=== PATIENT | female | born 1955 | race Caucasian/White ===

== ENCOUNTER 2020-06-11 15:33 | Outpatient (CLI) | payer MEDICARE, SELFPAY ==
--- NOTE | ~2020-06-11 | XR_ITS ---
XR scoliosis survey 06/11/2020 16:11 Indication: Scoliosis. Skeletal dysplasia. Procedure: Scoliosis survey including AP and lateral views of the cervical, thoracic and lumbar spine Comparison: 02/06/2018 Findings: There is S-shaped scoliosis of the thoracolumbar spine transfixed by Thurston rods and ce rclage wires. No significant alteration of alignment generalized osteopenia. Healed left fifth rib fr acture posteriorly. There are surgical changes of the right upper ribs. Allowing for differences of t echnique since prior examination. Levoscoliosis of the lumbar spine centered at L2-3 measuring 78 [address] tenisha. Impression: 1: Severe thoracolumbar scoliosis without significant change allowing for differences of technique. H jr crystal positions unchanged. Reviewed, dictated and finalized at location A. Impression: 1: Severe thoracolumbar scoliosis without significant change allowing for diffe rences of technique. Thurston crystal positions unchanged.
--- NOTE | ~2020-06-11 | XR_ITS ---
EXAMINATION: XR elbow LT min 3V DATE: 06/11/2020 16:11 INDICATION: Left elbow pain. TECHNIQUE: 4 views of left elbow were obtained. COMPARISON: None. FINDINGS: Bone alignment is normal. No fracture. There is an erosion of the olecranon. Joint spaces a re well maintained. There is no elbow joint effusion. There is soft tissue swelling over the overlyin g the olecranon, consistent with bursitis. IMPRESSION: 1. Olecranon bursitis with erosion of the olecranon, consistent with osteomyelitis. Reviewed, dictated and finalized at location A. 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 Olecranon bursitis with erosion of the olecranon, consistent with osteomyeli tis.
== END 2020-06-11 15:34 | disposition home or self-care (01) ==
PROVIDERS: PCP Internal Medicine
DX: M79.89 Other specified soft tissue disorders (principal); M41.9 Scoliosis, unspecified; M70.22 Olecranon bursitis, left elbow
CPT/HCPCS: 72082; 73080

== ENCOUNTER 2021-03-04 14:11 | Emergency (ER) | payer MEDICARE, SELFPAY ==
[2021-03-04 14:30] VITALS: BP 146/71; PULSE 103; RESP 16; TEMP 36.5; O2SAT 100
--- NOTE | 2021-03-04 14:51 | ED.URI ---
HPI - URI/Sore Throat General Chief Complaint: Upper Respiratory Infection Stated Complaint: Cough,Congestion Time Seen by Provider: 03/04/21 14:50 Source: patient Mode of arrival: ambulatory Limitations: no limitations History of Present Illness HPI Narrative: Stephanie Rodríguez is a 65-year-old female with P MH of urinary retention and high cholesterol who comes to [facility] with complaints of cough and mild wheezing that started this morning she states that she has difficulty controlling her respiratory symptoms she is about 4 feet tall and is been seen at the [facility] and [facility] Related Data Home Medications Medication Instructions Recorded Confirmed cholecalciferol (vitamin D3) 125 125 mcg PO DAILY 07/21/20 mcg (5,000 unit) capsule cranberry extract 250 mg capsule 250 mg PO DAILY 07/21/20 03/04/21 krill 500 mg-omega-3 150 mg-dha 45 1 cap PO DAILY 07/21/20 03/04/21 mg-epa 75 ie-zideqvy-zvvzh capsule magnesium citrate 125 mg capsule 125 mg PO DAILY 07/21/20 03/04/21 rosuvastatin 5 mg tablet 5 mg PO DAILY 07/21/20 03/04/21 Allergies Allergy/AdvReac Type Severity Reaction Status Date / Time amitriptyline Allergy Intermediate BLOOD IN Verified 03/04/21 14:35 STOOL AND COUGHING UP BLOOD cephalexin Allergy Intermediate HIVES Verified 03/04/21 14:35 Sulfa (Sulfonamide Allergy Intermediate Wheezing Verified 03/04/21 14:35 Antibiotics) fructose Allergy Mild Other Verified 03/04/21 14:35 Review of Systems Review of Systems: CONSTITUTIONAL: Denies fever, chills, sweats. EYES: Denies visual changes, redness, discharge. Postnasal drip ENT: Denies rhinorrhea, congestion, sore throat, right otalgia. CARDIOVASCULAR: Denies chest pain, palpitations, edema. RESPIRATORY: Denies dyspnea, wheezing, has cough GASTROINTESTINAL: Denies abdominal pain, nausea, vomiting, diarrhea. GENITOURINARY: Denies dysuria, hematuria, abnormal discharge SKIN: Denies rash or itching. NEUROLOGIC: Denies numbness, or focal weakness. PSYCHIATRIC: Denies anxiety or depression. [facility] Past Medical History Medical History High cholesterol Family History Family History Father Cancer Hypertension Heart disease Mother Alcoholism Grandparent Cancer Hypertension Depression Heart disease Social History Social History Smoking status: Never smoker Alcohol intake: never Substance use: never Comments At time of signature, I agree with nursing past medical, surgical, social and family history. There is no relevant family history pertinent to the presenting complaint. Exam Narrative: GENERAL: This is a well-nourished, well-developed patient, in mild distress. HEAD: normocephalic, atraumatic. EYES: Sclera clear/white. Vision is grossly intact. EARS: External ears normal, auditory canals clear with fluid behind right TM, TMs normal without perforation. Hearing grossly intact. NOSE: External nose normal without nasal discharge, nares without redness, has rhinorrhea. THROAT: Mucous membranes moist, posterior pharynx erythema NECK: Neck supple, non-tender CARDIOVASCULAR: Regular rate and rhythm without murmurs, gallops, or rubs. RESPIRATORY: Clear to auscultation. Breath sounds equal bilaterally. No wheezes, rales, or rhonchi. GASTROINTESTINAL: Abdomen soft, non-tender, SKIN: warm, intact with no suspicious lesions or rash, good texture and turgor. NEURO: awake, alert, and oriented to person, place and time. There were no obvious focal neurologic abnormalities. Steady gait EXTREMITIES: Normal range of motion. BACK: Nontender without deformity Course Course Emergency Course: Patient here for symptoms of develops morning including a cough that caused her to vomit postnasal drip right ear dullness and difficulty breathing-she has h
== END 2021-03-04 15:19 | disposition home or self-care (01) ==
PROVIDERS: Emergency Provider Nurse Practitioner
DX: J06.9 Acute upper respiratory infection, unspecified (principal); J45.21 Mild intermittent asthma with (acute) exacerbation; E78.00 Pure hypercholesterolemia, unspecified
CPT/HCPCS: 99213; G0463

== ENCOUNTER → 2021-03-26 13:40 | Outpatient (CLI) | payer MEDICARE, SELFPAY ==
--- NOTE | ~2021-03-26 | MM_ITS ---
EXAMINATION: MM screening [facility] BI w shanthi HISTORY: Screening mammogram TECHNIQUE: Craniocaudal and mediolateral oblique 3-D tomosynthesis images were obtained and synthetic 2-D images were generated. CAD analysis was submitted and interpreted. COMPARISON: 02/06/2018, 03/25/2017, 03/27/2014 BREAST PARENCHYMAL COMPOSITION: The breasts are heterogeneously dense, which may obscure small masses . FINDINGS: There is no evidence of suspicious mass, calcification, or architectural distortion to sugg est malignancy in either breast. There has been no suspicious interval change. IMPRESSION: 1. No mammographic evidence of malignancy. 2. Recommend routine screening mammography in one year. BI-RADS Category 1: Negative Reviewed, dictated and finalized at location A. 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
== END ==
PROVIDERS: Visit Provider Obstetrics & Gynecology
DX: Z12.31 Encounter for screening mammogram for malignant neoplasm of breast (principal)
CPT/HCPCS: 77063; 77067

== ENCOUNTER → 2021-03-26 13:52 | Outpatient (CLI) | payer MEDICARE, SELFPAY ==
--- NOTE | ~2021-03-26 | CT_ITS ---
EXAMINATION: CT abdomen pelvis w con DATE: 03/26/2021 15:17 INDICATION: Left abdominal pain. TECHNIQUE: Computed tomography (CT) of the abdomen and pelvis was performed with 100 mL Omnipaque 350 intravenous contrast. Automated exposure control and iterative reconstruction technique were employe d. The dose-length product was 139.04 mGy-cm. COMPARISON: CT abdomen and pelvis 05/13/2015 FINDINGS: The visualized portions of the lung bases demonstrate mild atelectasis and scarring. There is mild bronchiectasis in right middle lobe. No pleural effusion. The heart size is normal. There are coronary artery calcifications. No pericardial effusion. There is a small sliding hiatal hernia. The re is wall thickening of the distal esophagus. The liver, gallbladder, spleen, pancreas, adrenal glan ds, and kidneys are normal. Stool distends the rectum. The appendix is not visualized. There are no p athologically enlarged lymph nodes. There is no free intraperitoneal fluid. The bladder demonstrates trabeculations of the wall and wall thickening, likely neurogenic bladder. There is a mesh from left- sided hernia repair. There is thoracolumbar levoscoliosis. There are changes of posterior fusion proc edure. IMPRESSION: 1. Small sliding hiatal hernia. 2. Wall thickening of the distal esophagus, likely esophagitis. 3. Stool distends the rectum, similar to the prior exam. 4. Diffuse bladder wall thickening, likely neurogenic bladder. Reviewed, dictated and finalized at location A. PERSON
[2021-03-26 14:54] LABS: Estimated Glomerular Filt Rate > 60
== END ==
PROVIDERS: Visit Provider Internal Medicine Gastroenterology
DX: R10.9 Unspecified abdominal pain (principal); K44.9 Diaphragmatic hernia without obstruction or gangrene
CPT/HCPCS: 74177; Q9967

== ENCOUNTER 2021-07-08 13:47 | Outpatient (CLI) | payer MEDICARE, SELFPAY ==
--- NOTE | ~2021-07-08 | XR_ITS ---
EXAMINATION: XR scanogram DATE: 07/08/2021 14:12 INDICATION: Bilateral hip and knee and ankle pain. TECHNIQUE: An anteroposterior view of the pelvis and lower limbs standing was obtained. COMPARISON: Spine radiographs 06/11/2020 FINDINGS: The right femoral head stands 7 mm higher than the left. There is an old healed fracture of distal left fibular metadiaphysis. There is levoscoliosis of lumbar spine with posterior fixation. S urgical clips overlie left abdomen. There is mild osteoarthritis of the hips characterized by tiny os teophytes without joint space narrowing. The knee joint spaces are normal. IMPRESSION: 1. Right femoral head stands 7 mm higher than the left. 2. Mild osteoarthritis of the hips. Reviewed, dictated and finalized at location A. [employer]
== END 2021-07-08 13:48 | disposition home or self-care (01) ==
DX: M16.0 Bilateral primary osteoarthritis of hip (principal)
CPT/HCPCS: 77073

== ENCOUNTER → 2021-12-29 13:34 | Outpatient (CLI) | payer MEDICARE, SELFPAY ==
--- NOTE | ~2021-12-29 | DEXA_ITS ---
Bone Density Report Name: IVAN ESCOBAR Age: 66 Sex: Female Ethnicity: White Date of : 1955 Indication: postmenopausal; screening for osteoporosis; height loss; asthma or emphysema; hysterectomy; Referring Provider: La, Donal Cornejo Study: Bone densitometry was performed. Exam Date: December 29, 2021 Accession number: [id number] Bone Density: Region BMD T-score Z-score Classification Femoral Neck (Left) 0.239 -5.5 -3.9 Osteoporosis Total Hip (Left) 0.371 -4.7 -3.3 Osteoporosis Femoral Neck (Right) 0.226 -5.6 -4.0 Osteoporosis Total Hip (Right) 0.386 -4.6 -3.2 Osteoporosis Total Hip Mean 0.379 -4.7 -3.3 Osteoporosis World Health Organization criteria for BMD impression classify patients as: Normal (T-score at or above -1.0), Osteopenia (T-score between -1.0 and -2.5), or Osteoporosis (T-score at or below -2.5). 10-year Fracture Risk: FRAX not reported because: Some T-score for Spine Total or Hip Total or Femoral Neck at or below -2.5 Clinical Information Provided by Patient: Has used the following medications: Vitamin D, Calcium, MTV Has the following medical conditions: Asthma or Emphysema, Hysterectomy Patient maximum height was 50 Menopause Age: 15 No regular weight bearing exercise Does not regularly consume dairy products Drinks caffeinated beverages Onset of menses at age 15 Number of children 0 Missed period for more than 6 months in a row Impression: The patient has osteoporosis, based on the Right Femoral Neck T-score. Discussion: HIGH RISK OF FRACTURE. BONE DENSITY IS UNDESIRABLY LOW AT ONE OR MORE SKELETAL SITES, CONSISTENT WITH OSTEOPOROSIS. ALSO, BONE DENSITY IS LOWER THAN EXPECTED FOR AGE AND SEX AT ONE OR MORE SKELETAL SITES; RECOMMEND A DILIGENT SEARCH FOR SECONDARY CAUSES OF BONE LOSS. This patient's lowest T-score meets the World Health Organization's (WHO) criteria for osteoporosis at one or more sites (T-score -2.5 or below). In untreated patients, the risk of osteoporotic fracture increases approximately two-fold for each 1.0 SD decrease in T-score. Low bone density is not the only risk factor for fracture; also consider factors such as patient's age, frailty or poor health, risk of falling, risk of injury, previous osteoporotic fracture, family history of osteoporosis, cigarette smoking, low body weight, etc. Not everyone with low bone mineral density has osteoporosis; osteomalacia and other metabolic bone disorders should also be considered. Patients who have osteoporosis should be evaluated for specific diseases and conditions (secondary causes) that may cause or contribute to bone loss. The [place] Association of Clinical Endocrinologists (AACE) and National Osteoporosis Foundation (NOF) recommend pharmacologic intervention for all postmenopausal women whose T-score is in this range.
== END ==
PROVIDERS: PCP Obstetrics & Gynecology; Visit Provider Internal Medicine
DX: M81.0 Age-related osteoporosis without current pathological fracture (principal)
CPT/HCPCS: 77080

== ENCOUNTER 2022-01-09 15:20 | Emergency (ER) | payer OTHER, MEDICARE, SELFPAY ==
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
[2022-01-09 15:33] VITALS: BP 143/79; PULSE 95; RESP 18; TEMP 36.6; O2SAT 100
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
[2022-01-09 17:04] VITALS: BP 142/63; PULSE 78; RESP 18; O2SAT 99
[2022-01-09] MEDS: ACETAMINOPHEN 500 MG TABLET PO (18:13)
[2022-01-09 19:32] VITALS: BP 140/60; PULSE 70; RESP 16; O2SAT 98
== END 2022-01-09 19:35 | disposition home or self-care (01) ==
PROVIDERS: Emergency Provider Emergency Medicine; PCP Obstetrics & Gynecology
DX: M54.50 Low back pain, unspecified (principal); M54.6 Pain in thoracic spine; V43.62XA Car passenger injured in collision with other type car in traffic accident, initial encounter
CPT/HCPCS: 71101; 72125; 72128; 72131; 72170; 99284; A9270

== ENCOUNTER 2022-03-09 14:15 | Outpatient (RCR) | payer OTHER, SELFPAY ==
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
--- NOTE | 2022-07-08 11:56 | PCPTNOTE ---
LATE ENTRY: PHYSICAL THERAPY DISCHARGE 07-08-22 Attending Provider: Genaro Knight MD Patient:Stephanie Rodríguez Date of :1955 Stephanie has not returned for any further treatments since the initial evaluation on 03/09/2022, therefore she will be discharged at this time. Thank you for referring Stephanie to [facility].
== END 2022-06-07 23:59 | disposition home or self-care (01) ==
LOC: ANHPT 14:15
PROVIDERS: PCP Obstetrics & Gynecology
DX: Q78.9 Osteochondrodysplasia, unspecified (principal); M19.90 Unspecified osteoarthritis, unspecified site
CPT/HCPCS: 97110; 97162

== ENCOUNTER 2022-07-27 13:30 | Outpatient (RCR) | payer OTHER, MEDICARE, SELFPAY ==
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
== END 2022-07-27 15:31 | disposition home or self-care (01) ==
LOC: ANHPT 13:30
PROVIDERS: PCP Internal Medicine
DX: Q78.9 Osteochondrodysplasia, unspecified (principal); M19.90 Unspecified osteoarthritis, unspecified site
CPT/HCPCS: 97110; 97116; 97161; 97530

== ENCOUNTER → 2022-08-10 13:49 | Outpatient (CLI) | payer MEDICARE, SELFPAY ==
--- NOTE | ~2022-08-10 | MM_ITS ---
EXAMINATION: MM screening laquita BI w shanthi HISTORY: Screening mammogram TECHNIQUE: Craniocaudal and mediolateral oblique 3-D tomosynthesis images were obtained and synthetic 2-D images were generated. CAD analysis was submitted and interpreted. COMPARISON: 03/26/2021, 02/06/2018, 03/14/2017 lateral screening mammogram examinations BREAST PARENCHYMAL COMPOSITION: The breasts are heterogeneously dense, which may obscure small masses . FINDINGS: There is no evidence of suspicious mass, calcification, or architectural distortion to sugg est malignancy in either breast. There has been no suspicious interval change. IMPRESSION: 1. No mammographic evidence of malignancy. 2. Recommend routine screening mammography in one year. BI-RADS Category 1: Negative Reviewed, dictated and finalized at location A.
== END ==
PROVIDERS: PCP Internal Medicine; Visit Provider Obstetrics & Gynecology
DX: Z12.31 Encounter for screening mammogram for malignant neoplasm of breast (principal)
CPT/HCPCS: 77063; 77067

== ENCOUNTER 2022-09-24 14:57 | Emergency (ER) | payer MEDICARE, SELFPAY ==
--- NOTE | ~2022-09-24 | XR_ITS ---
XR thoracic spine 3V 09/24/2022 15:57 Indication: Status post fall. Back pain. Procedure: 5 views thoracolumbar spine Comparison: 06/11/2020 Findings: Severe S-shaped scoliosis. Thurston rods are identified overlying the thoracic and lumbar spine. There is spondylolisthesis at L5-S1. Osteopenia. There is moderate multilevel spondylosis. No acute fractures identified. There are multiple healed bilateral rib fractures. Impression: 1: There no acute abnormality of the thoracolumbar spine. Severe S-shaped scoliosis transfixed by Osman rington rods and cerclage wires. Reviewed, dictated and finalized at location B. Impression: 1: There no acute abnormality of the thoracolumbar spine. Severe S-shaped scoli osis transfixed by Thurston rods and cerclage wires.
[2022-09-24 15:03] VITALS: BP 128/53; PULSE 110; RESP 18; TEMP 37; O2SAT 100
[2022-09-24 15:10] VITALS: BP 128/53; PULSE 110; RESP 18; TEMP 37; O2SAT 100
--- NOTE | 2022-09-24 15:30 | ED.FALL ---
HPI - Fall General Chief Complaint: Fall Stated Complaint: Fall Injury/ Upper Back Pain Time Seen by Provider: 09/24/22 15:30 Source: patient, RN notes reviewed and old records reviewed Mode of arrival: wheelchair Limitations: no limitations History of Present Illness HPI Narrative: 66 year old female who presents to express care and fall when grabber towel which has suction cups came off and she fell hitting upper back on the toilet.Patient reports that she has pain between her shoulder blades mainly on left side. Patient does have history of severe scoliosis with previous fixation fo spine with Thurston rods and cerclage wires.Patient denies hitting her head or any LOC.Patient reports that she has taken some tylenol and has used Voltaren ointment.Patient denies any shortness of breath or any change in her respiratory status. MD complaint: fall Onset (ago): day(s) (3) Loss of consciousness: none Location of injury: back (thoracic) Severity scale (1-10): 4 Related Data Home Medications Medication Instructions Recorded Confirmed cholecalciferol (vitamin D3) 125 125 mcg PO DAILY 07/21/20 09/24/22 mcg (5,000 unit) capsule cranberry extract 250 mg capsule 250 mg PO DAILY 07/21/20 09/24/22 krill 500 mg-omega-3 150 mg-dha 45 1 cap PO DAILY 07/21/20 09/24/22 mg-epa 75 [id number] capsule (krill oil) magnesium citrate 125 mg capsule 125 mg PO DAILY 07/21/20 09/24/22 rosuvastatin 5 mg tablet 5 mg PO DAILY 07/21/20 09/24/22 fluticasone propionate 110 110 inh inhalation DIRECTED 09/24/22 09/24/22 mcg/actuation HFA aerosol inhaler (Flovent HFA) Allergies Allergy/AdvReac Type Severity Reaction Status Date / Time amitriptyline Allergy Intermediate BLOOD IN Verified 03/04/21 14:35 STOOL AND COUGHING UP BLOOD cephalexin Allergy Intermediate HIVES Verified 03/04/21 14:35 Sulfa (Sulfonamide Allergy Intermediate Wheezing Verified 03/04/21 14:35 Antibiotics) fructose Allergy Mild Other Verified 03/04/21 14:35 Review of Systems Review of Systems: CONSTITUTIONAL: Denies fever, chills, or sweats. CARDIOVASCULAR: Denies chest pain, palpitations, or edema. RESPIRATORY: Denies cough or dyspnea. GASTROINTESTINAL: Denies abdominal pain, nausea, vomiting, or diarrhea. GENITOURINARY: Denies dysuria or hematuria. SKIN: Denies rash or itching. MUSCULOSKELETAL: Reports back pain between shoulder blades. Joint pain or myalgia. NEUROLOGIC: Denies headache, numbness, or weakness. All systems reviewed & are unremarkable except as noted in HPI and below PMFSH Past Medical History Medical History (Updated 09/25/22 @ 11:18 by Shannon Shine NP) Asthma Dwarfism GERD (gastroesophageal reflux disease) High cholesterol Osteoporosis Post-menopausal Scoliosis deformity of spine transfixed with Thurston RODs and wires Surgical History Surgical History (Updated 09/25/22 @ 11:18 by Shannon Shine NP) History of spinal fusion Hx of appendectomy Family History Family History Father Cancer Hypertension Heart disease Mother Alcoholism Grandparent Cancer Hypertension Depression Heart disease Social History Social History Smoking status: Never smoker Alcohol intake: never Substance use: never Comments At time of signature, agree with nursing past medical, surgical, social and family history. There is no relevant family history pertinent to the presenting complaint Exam Narrative: GENERAL: Well-appearing, well-nourished, and in no acute distress. HEAD: Normocephalic, atraumatic. EYES: PERRLA and EOMI. NECK: Supple. No lymphadenopathy. CHEST: Clear to auscultation. No respiratory distress.SAO2 100% on room air HEART: Regular rate and rhythm. Distal pulses palpable and equal, cap refill <3 seconds ABDOMEN: Soft, nontender, nondistended, norm
== END 2022-09-24 16:53 | disposition home or self-care (01) ==
PROVIDERS: Emergency Provider Registered Nurse; PCP Internal Medicine
DX: M54.6 Pain in thoracic spine (principal); J45.909 Unspecified asthma, uncomplicated; K21.9 Gastro-esophageal reflux disease without esophagitis; E78.00 Pure hypercholesterolemia, unspecified; M81.0 Age-related osteoporosis without current pathological fracture; M41.9 Scoliosis, unspecified; E34.328 Other genetic causes of short stature
CPT/HCPCS: 72072; 99213; G0463

== ENCOUNTER 2023-04-30 14:13 | Emergency (ER) | payer MEDICARE, SELFPAY ==
--- NOTE | ~2023-04-30 | CT_ITS ---
EXAMINATION: CT cervical spine wo con DATE: 04/30/2023 20:02 INDICATION: Neck pain after fall TECHNIQUE: Computed tomography (CT) of the cervical spine was performed without intravenous contrast. The dose-length product was 79 mGy-cm. Automated exposure control and iterative reconstruction techn ique were employed. COMPARISON: CT dated 01/09/2022 FINDINGS: Normal cervical lordosis. There is disc narrowing at C3-4, C6-7 and C7-T1. There is degener ative retrolisthesis at C3-4. No fracture, subluxation or dislocation. Odontoid process is normal. Th ere is multilevel uncinate and facet hypertrophy. Mild dextrocurvature of the cervical spine. No evid ence for perched facet. Craniovertebral junction is normal. Odontoid process is normal. No paraspinal soft tissue abnormality. There is a 1 cm left thyroid hypodense mass, likely of no clinical signific ance. There is emphysema of the lung apices. IMPRESSION: 1. No acute abnormality of the cervical spine. Reviewed, dictated and finalized at location A. FITTER APPRENTICE
--- NOTE | ~2023-04-30 | CT_ITS ---
EXAMINATION: CT BRAIN W/O DATE: 04/30/2023 20:02 INDICATION: Status post fall. TECHNIQUE: Computed tomography (CT) of the head was performed without intravenous contrast. The dose- length product was 605.33 mGy-cm. Automated exposure control and iterative reconstruction technique w ere employed. COMPARISON: No prior studies for comparison. FINDINGS: Normal brain parenchymal volume for age. Normal shepherd-white differentiation. No acute intrac ranial hemorrhage, infarction, mass or mass effect. There are scattered mild periventricular and subc ortical white matter changes, most likely related to small vessel ischemic disease (microangiopathy). There is intracranial atherosclerosis. No ventriculomegaly or midline shift. Midline sagittal images demonstrate a normal corpus callosum, c raniovertebral junction and sella turcica. Basilar cisterns are patent. There is chronic mucosal thickening right maxillary sinus with mucoperiosteal reaction. No depressed skull fractures. IMPRESSION: 1. No acute intracranial abnormality. Reviewed, dictated and finalized at location A. PILER
--- NOTE | ~2023-04-30 | CT_ITS ---
EXAMINATION: CT thoracic lumbar wo con DATE: 04/30/2023 20:02 INDICATION: Back pain after fall. TECHNIQUE: Computed tomography (CT) of the thoracic and lumbar spine was performed without intravenou s contrast. The dose-length product was 605.33 mGy-cm. Automated exposure control and iterative recon struction technique were employed. COMPARISON: CT dated 01/09/2022 FINDINGS: Severe levoscoliosis of the thoracolumbar spine transfixed by Thurston rods. There is a n ew T5 superior endplate compression fracture, age indeterminate. There is approximately 20% loss of v ertebral body height. No acute abnormality of the lumbar spine identified. There is multilevel degenerative disc disease. There is right lower lobe dependent atelectasis. There is fecal impaction of the distal colon and rec wagner which appears mildly thickened. IMPRESSION: 1. New age-indeterminate T5 superior endplate compression fracture. Approximately 20% loss of vertebr al body height. Reviewed, dictated and finalized at location A. REPAIRER IMPRESSION: 1. New age-indeterminate T5 superior endplate compression fracture. Approximate ly 20% loss of vertebral body height.
[2023-04-30 14:16] VITALS: BP 153/69; PULSE 106; RESP 16; TEMP 36.3; O2SAT 100
--- NOTE | 2023-04-30 18:57 | PC.NURSE ---
pt self cath's at home. pt was provided bedadine swaps, gloves, and a bed zaragoza to cath bedside.
--- NOTE | 2023-04-30 19:07 | ED.FALL ---
HPI - Fall General Chief Complaint: Fall Stated Complaint: fall Time Seen by Provider: 04/30/23 19:06 Source: patient and family Mode of arrival: ambulatory Limitations: no limitations History of Present Illness HPI Narrative: Patient tripped on a curb landed backward, landed on her bottom then struck the back of her head on the ground, no loss of consciousness complaining of back pain and neck pain. No blood thinners Related Data Home Medications Medication Instructions Recorded Confirmed cholecalciferol (vitamin D3) 125 125 mcg PO DAILY 07/21/20 09/24/22 mcg (5,000 unit) capsule cranberry extract 250 mg capsule 250 mg PO DAILY 07/21/20 09/24/22 krill 500 mg-omega-3 150 mg-dha 45 1 cap PO DAILY 07/21/20 09/24/22 mg-epa 75 [id number] capsule (krill oil) magnesium citrate 125 mg capsule 125 mg PO DAILY 07/21/20 09/24/22 rosuvastatin 5 mg tablet 5 mg PO DAILY 07/21/20 09/24/22 fluticasone propionate 110 110 inh inhalation DIRECTED 09/24/22 09/24/22 mcg/actuation HFA aerosol inhaler (Flovent HFA) Allergies Allergy/AdvReac Type Severity Reaction Status Date / Time amitriptyline Allergy Intermediate BLOOD IN Verified 04/30/23 14:13 STOOL AND COUGHING UP BLOOD cephalexin Allergy Intermediate HIVES Verified 04/30/23 14:13 Sulfa (Sulfonamide Allergy Intermediate Wheezing Verified 04/30/23 14:13 Antibiotics) fructose Allergy Mild Other Verified 04/30/23 14:13 Review of Systems Review of Systems: All systems reviewed & are unremarkable except as noted in HPI and below PMFSH Past Medical History Medical History Asthma Dwarfism GERD (gastroesophageal reflux disease) High cholesterol Osteoporosis Post-menopausal Scoliosis deformity of spine transfixed with Thurston RODs and wires Surgical History Surgical History History of spinal fusion Hx of appendectomy Family History Family History Father Cancer Hypertension Heart disease Mother Alcoholism Grandparent Cancer Hypertension Depression Heart disease Social History Social History Smoking status: Never smoker Alcohol intake: never Substance use: never Exam Narrative: General appearance: Well-developed, well-nourished Skin: Normal color Head: Occipital hematoma Eyes: Clear conjunctiva ENT: Oropharynx normal, ears normal, nose normal Neck: Supple, nontender Chest and respiratory: Airway patent, no respiratory distress, no accessory muscle use Heart: Regular rate/rhythm Abdomen: Soft, nontender, no organomegaly, quiet bowel sounds Vascular: Normal peripheral pulses, normal capillary refill. Musculoskeletal: No localized back pain, no bruises, or swelling or deformity. Neurologic: Alert and oriented ?3, [employer] is normal as tested, no gross motor deficit Course Vital Signs Vital signs: Vital Signs Temperature 36.3 C L 04/30/23 14:16 Pulse Rate 106 H 04/30/23 14:16 Respiratory Rate 16 04/30/23 14:16 Blood Pressure 153/69 H 04/30/23 14:16 Pulse Oximetry 100 04/30/23 14:16 Oxygen Delivery Room Air 04/30/23 14:16 Temperature 36.3 C L 04/30/23 14:16 Pulse Rate 106 H 04/30/23 14:16 Respiratory Rate 16 04/30/23 14:16 Blood Pressure 153/69 H 04/30/23 14:16 Pulse Oximetry 100 04/30/23 14:16 Oxygen Delivery Room Air 04/30/23 14:16 MDM - Fall MDM Narrative Medical decision making narrative: Patient presents with the above symptoms, physical examination showed no
[2023-04-30 19:15] VITALS: BP 143/85; PULSE 81; RESP 19; O2SAT 99
[2023-04-30 21:38] VITALS: BP 139/82; PULSE 66; RESP 19; O2SAT 99
== END 2023-04-30 21:37 | disposition home or self-care (01) ==
PROVIDERS: Emergency Provider Emergency Medicine; PCP Internal Medicine
DX: S09.90XA Unspecified injury of head, initial encounter (principal); S22.059A Unspecified fracture of T5-T6 vertebra, initial encounter for closed fracture; J45.909 Unspecified asthma, uncomplicated; E34.328 Other genetic causes of short stature; K21.9 Gastro-esophageal reflux disease without esophagitis; W10.1XXA Fall (on)(from) sidewalk curb, initial encounter
CPT/HCPCS: 70450; 72125; 72128; 72131; 99284

== ENCOUNTER 2023-08-12 16:18 | Outpatient (CLI) | payer MEDICARE, SELFPAY ==
--- NOTE | ~2023-08-12 | XR_ITS ---
EXAM: XR wrist RT min 3V DATE: 08/12/2023 16:49 HISTORY: STIFFESS, OSTEOARTHRITIS . COMPARISON: None available. FINDINGS: Decreased mineralization. Abnormal morphology and orientation of the scaphoid, possible ol d scaphoid fracture. Scapholunate widening. Scapholunate angle 84 degrees, capitate-lunate angle 25 d egrees (DISI). Abnormal morphology of the lunate bone. Severe joint space narrowing in the proximal a nd second carpal row. Scalloped erosion at the DRUJ. Scattered subchondral cysts. Absent ulnar styloi d. Soft tissue swelling about the wrist. IMPRESSION: Severe arthritic change in the wrist with changes of instability such as SLAC or SNAC wrist. Additional radiographic findings suspicious for inflammatory arthritis. Correlate with serum markers for rheumatoid arthritis. Reviewed, dictated and finalized at location K. IMPRESSION: Severe arthritic change in the wrist with changes of instability such as SLAC o r SNAC wrist. Additional radiographic findings suspicious for inflammatory arthritis. Correla te with serum markers for rheumatoid arthritis.
== END 2023-08-12 16:19 | disposition home or self-care (01) ==
PROVIDERS: PCP Internal Medicine; Visit Provider Plastic Surgery
DX: M19.031 Primary osteoarthritis, right wrist (principal)
CPT/HCPCS: 73110

== ENCOUNTER 2023-08-24 14:20 | Outpatient (CLI) | payer MEDICARE, SELFPAY ==
--- NOTE | ~2023-08-24 | US_ITS ---
US breast BI complete 08/24/2023 15:08 Indication: Patient unable to tolerate mammograms. Bilateral complete breast ultrasound recommended. Procedure: High-resolution bilateral complete breast ultrasound including all 4 quadrants in the suba reolar locations Comparison: Mammogram dated 08/10/2022 Findings: Right breast: At 12:00 near the nipple there is an oval 2 mm hypoechoic mass, likely a cyst . No internal vascularity or posterior features. Left breast: At 11:00, 1 cm from the nipple there is an oval hypoechoic 2 mm mass, likely complicated cysts, too small to well characterize. No internal vascularity or posterior features. Impression: 1: Probable benign bilateral cysts of the breasts. BI-RADS CATEGORY 3-PROBABLY BENIGN FINDING RECOMMENDATION: 6 month follow-up limited bilateral breast ultrasound recommended. Reviewed, dictated and finalized at location B. Impression: 1: Probable benign bilateral cysts of the breasts. BI-RADS CATEGORY 3-PROBABLY BENIGN FINDING RECOMMENDATION: 6 month follow-up limited bilateral breast ultrasound recommend ed.
== END 2023-08-24 14:21 | disposition home or self-care (01) ==
PROVIDERS: PCP Internal Medicine; Visit Provider Internal Medicine
DX: R92.8 Other abnormal and inconclusive findings on diagnostic imaging of breast (principal)
CPT/HCPCS: 76641

== ENCOUNTER 2024-02-15 15:32 | Outpatient (CLI) | payer MEDICARE, SELFPAY ==
--- NOTE | ~2024-02-15 | DEXA_ITS ---
Bone Density Report Name: IVAN ESCOBAR Age: 68 Sex: Female Ethnicity: White Date of : 1955 Indication: postmenopausal; screening for osteoporosis; prior fracture; hysterectomy; Referring Provider: AILEEN, HORACIO Cornejo Study: Bone densitometry was performed. Exam Date: February 15, 2024 Accession number: [id number] Bone Density: Region BMD T-score Z-score Classification Femoral Neck (Left) 0.276 -5.2 -3.4 Osteoporosis Total Hip (Left) 0.460 -3.9 -2.5 Osteoporosis Femoral Neck (Right) 0.281 -5.1 -3.4 Osteoporosis Total Hip (Right) 0.449 -4.0 -2.6 Osteoporosis Total Hip Mean 0.455 -4.0 -2.6 Osteoporosis World Health Organization criteria for BMD impression classify patients as: Normal (T-score at or above -1.0), Osteopenia (T-score between -1.0 and -2.5), or Osteoporosis (T-score at or below -2.5). 10-year Fracture Risk: FRAX not reported because: Some T-score for Spine Total or Hip Total or Femoral Neck at or below -2.5 Prior hip or vertebral fracture Clinical Information Provided by Patient: Have had a previous hip or vertebral fracture Has had a low trauma fracture Has used the following medications: Vitamin D, Calcium Has the following medical conditions: Hysterectomy Patient maximum height was 54 Menopause Age: 39 Drinks caffeinated beverages Onset of menses at age 1 Number of children 0 Impression: The patient has established osteoporosis, based on the Left Femoral Neck T-score and the existence of a prior fracture. The patient has risk factors, including: previous fracture. Discussion: HIGH RISK OF FRACTURE. BONE DENSITY IS UNDESIRABLY LOW AT ONE OR MORE SKELETAL SITES, CONSISTENT WITH POSTMENOPAUSAL OSTEOPOROSIS. This patient's lowest T-score, in a patient who has previously fractured, meets the World Health Organization's (WHO) criteria for severe osteoporosis. In untreated patients, the risk of osteoporotic fracture increases approximately two-fold for each 1.0 SD decrease in T-score. Low bone density is not the only risk factor for fracture; also consider factors such as patient's age, frailty or poor health, risk of falling, risk of injury, previous osteoporotic fracture, family history of osteoporosis, cigarette smoking, low body weight, etc. Not everyone with low bone mineral density has osteoporosis; osteomalacia and other metabolic bone disorders should also be considered. Patients who have osteoporosis should be evaluated for specific diseases and conditions (secondary causes) that may cause or contribute to bone loss. The [place] [employer] Endocrinologists (AACE) and National Osteoporosis Foundation (NOF) recommend pharmacologic intervention for all postmenopausal women with a previous hip or vertebral fracture and a T-score in this range. The patient should follow a hea
== END 2024-02-15 15:33 | disposition home or self-care (01) ==
LOC: ANHIMG 15:33
PROVIDERS: PCP Internal Medicine; Visit Provider Internal Medicine
DX: M81.0 Age-related osteoporosis without current pathological fracture (principal); M85.89 Other specified disorders of bone density and structure, multiple sites; Z13.820 Encounter for screening for osteoporosis
CPT/HCPCS: 77080

== ENCOUNTER 2024-04-25 18:13 | Emergency (ER) | payer MEDICARE, SELFPAY ==
[2024-04-25 18:19] VITALS: BP 123/55; PULSE 108; RESP 22; TEMP 36.8; O2SAT 96
--- NOTE | 2024-04-25 18:22 | ED.SKABFB ---
HPI - Skin/Abscess/Foreign Bdy General Chief complaint: Extremity Injury, Lower Stated complaint: Left toe nail/foot swollen Time Seen by Provider: 04/25/24 18:26 Source: patient and RN notes reviewed Mode of arrival: ambulatory Limitations: dementia History of Present Illness HPI narrative: 68-year-old female presents with concern for injured toenail. She reports she was cutting her toenails when she noticed the fell off. This happened about 6 days ago. She denies pain, drainage. MD complaint: other (Redness) Related Data Home Medications ?Medication ?Instructions ?Recorded ?Confirmed ?Last Taken ?Type cholecalciferol (vitamin D3) 125 125 mcg PO DAILY 07/21/20 09/24/22 Unknown History mcg (5,000 unit) capsule cranberry extract 250 mg capsule 250 mg PO DAILY 07/21/20 09/24/22 Unknown History krill 500 mg-omega-3 150 mg-dha 45 1 cap PO DAILY 07/21/20 09/24/22 Unknown History mg-epa 75 ig-[id number]-bldfs capsule (krill oil) magnesium citrate 125 mg capsule 125 mg PO DAILY 07/21/20 09/24/22 Unknown History rosuvastatin 5 mg tablet 5 mg PO DAILY 07/21/20 09/24/22 Unknown History fluticasone propionate 110 110 inh inhalation DIRECTED 09/24/22 09/24/22 Unknown History mcg/actuation HFA aerosol inhaler (Flovent HFA) Allergies Allergy/AdvReac Type Severity Reaction Status Date / Time amitriptyline Allergy Intermediate BLOOD IN Verified 04/25/24 18:34 STOOL AND COUGHING UP BLOOD cephalexin Allergy Intermediate HIVES Verified 04/25/24 18:34 Sulfa (Sulfonamide Allergy Intermediate Wheezing Verified 04/25/24 18:34 Antibiotics) fructose Allergy Mild Other Verified 04/25/24 18:34 Review of Systems Review of Systems: CONSTITUTIONAL: Denies malaise, chills, sweats, or fever. EYES: Denies redness, or discharge. ENT: Denies rhinorrhea, congestion, swollen lips, swollen tongue CARDIOVASCULAR: Denies chest pain, palpitations, or edema. RESPIRATORY: Denies cough or dyspnea. GASTROINTESTINAL: Denies abdominal pain, nausea, vomiting SKIN: Reports toenail injury. Denies purulent drainage, vesicles, bullae, numbness, pain beyond proportion MUSCULOSKELETAL: Denies joint pain or myalgia. NEUROLOGIC: Denies headache. All systems reviewed & are unremarkable except as noted in HPI and below PMFSH Past Medical History Medical History Asthma Dwarfism GERD (gastroesophageal reflux disease) High cholesterol Osteoporosis Post-menopausal Scoliosis deformity of spine transfixed with [place] RODs and wires Surgical History Surgical History History of spinal fusion Hx of appendectomy Family History Family History Father Cancer Hypertension Heart disease Mother Alcoholism Grandparent Cancer Hypertension Depression Heart disease Social History Social History Smoking status: Never smoker Alcohol intake: never Substance use: never Comments At time of signature, agree with nursing past medical, surgical, social and family history. There is no relevant family history pertinent to the presenting complaint Exam Narrative: GENERAL: Well-appearing, well-nourished, and in no acute distress. HEAD: Normocephalic, atraumatic. EYES: PERRLA, conjunctivae clear ENT: Mucous membranes moist. NECK: Supple. No lymphadenopathy CHEST: Clear to auscultation. No respiratory distress. HEART: Regular rate and rhythm. SKIN: Warm, dry. Toenail of the 1st digit of the left foot removed, No Erythema, induration, tenderness, warmth with sharp margins noted. No vesicles, bullae, necrosis, ecchymosis, crepitus noted. NEURO: Alert and oriented x3. PSYCH: Normal mood and affect Course Course Emergency Course: Patient is aware of diagnosis, understands and agrees to treatment plan. Anticipatory guidance given. Patient agrees to follow-up as directed and is aware of reasons to seek care at the emergency department. Portions of this record may have been created with voice recognition software Level of Care: Express Care Visit Vital Signs Vital signs: Reviewed. MDM - Skin/Abscess/Foreign Bdy MDM Narrative Medical decision making narrative: I evaluated this in the express care. History is obtained from patient who is an independent historian and physical exam was performed.? Available medical records were reviewed. ? Exam findings and relevant testing show no acute concerns or changes; patient is non-toxic appearing and is in no distress. No risk factors or findings concerning for epidural abscess, diskitis, vertebral osteomyelitis, cord compression, cauda equina, vertebral fracture or bone malignancy, AAA, or pyelonephritis. Patient instructed to consider further imaging and workup through their primary care physician as an outpatient if symptoms persist. Does not appear at this time to be erythema multiforme, bullous, SJS, TEN; no evidence at this time to suggest RMSF, NSTI, endocarditis or Lyme disease; patient looks well, nontoxic and is tolerating oral intake; no neurologic signs or symptoms; no headache, photophobia or neck pain; afebrile.? Patient does not have history of of penetrating trauma, laceration, blunt trauma, recent surgery, immunosuppression, malignancy, obesity, alcoholism, corticosteroid use.? Discussed the importance of follow-up, patient agrees; question, cellulitis versus necrotizing soft tissue infection versus abscess.?? Patient is appropriate for outpatient treatment and follow-up. Critical Care Time Critical Care Time Critical Care Time: No Discharge Plan Discharge Clinical Impression: Injury of toenail Patient Disposition: Home, Self-Care Condition: Stable Instructions: Warm Compress or Soak (ED) Additional Instructions: Please follow up with your Primary Care Doctor you have any new symptoms or concerns. Rest and elevate affected area; apply moist heat 3-4 times daily for 10-15 minutes. You can cover the toenail with a bandage to protect it from irritation If you experience any worsening redness, swelling, streaking (red lines), fever or chills please go to the ER Patient Language: Macedonian Prescriptions: No Action albuterol sulfate 90 mcg/actuation HFA aerosol inhaler 1 inh inhalation QID PRN (Reason: shortness of breath or wheezing) Qty: 8.5 0RF fluticasone propionate [Flovent HFA] 110 mcg/actuation HFA aerosol inhaler 110 inh INHALATION DIRECTED rosuvastatin 5 mg tablet 5 mg PO DAILY krill oil [id number] mg capsule 1 cap PO DAILY cranberry extract 250 mg capsule 250 mg PO DAILY Rx Instructions: administer with a meal cholecalciferol (vitamin D3) 125 mcg (5,000 unit) capsule 125 mcg PO DAILY magnesium citrate 125 mg capsule 125 mg PO DAILY Follow-up/Referrals: La,Donal Cornejo MD [Primary Care Provider] - Time of Disposition: 18:43
== END 2024-04-25 18:48 | disposition home or self-care (01) ==
PROVIDERS: Emergency Provider Nurse Practitioner; PCP Internal Medicine
DX: S99.922A Unspecified injury of left foot, initial encounter (principal); X58.XXXA Exposure to other specified factors, initial encounter; J45.909 Unspecified asthma, uncomplicated; K21.9 Gastro-esophageal reflux disease without esophagitis; E78.00 Pure hypercholesterolemia, unspecified; M81.0 Age-related osteoporosis without current pathological fracture; E34.328 Other genetic causes of short stature
CPT/HCPCS: 99212; G0463

== ENCOUNTER 2024-08-18 14:37 | Emergency (ER) | payer MEDICARE, SELFPAY ==
--- OUTSIDE RECORDS SUMMARY | 2024-08-18 14:39 | XMS_ITS | Encounter Summary ---
Author Organization [facility] Healthcare Address [address] [place] [address] Care Team Providers Care Automation Machine Operator Name Role Phone Donal Tovar MD Primary Care Provider Reason for Visit * Auth/Cert Specialty Diagnoses / Procedures Referred By Contac t Referred To Contact Diagnoses Screening for colon cancer Screening for colon cancer [Z12.11] Procedures MT COLONOSCOPY FLX DX W/COLLJ SPEC WHEN PFRMD COLONOSCOPY Referral ID Status Reason Start Date Expiration Date Visits Re quested Visits Authorized [id number] 1 1 Encounter Details Date Type Department Care Team (Late st Contact Info) Description 07/03/2024 Hospital Encounter [facility] [address] [place] [address] Rosaura Gates MD [address] [place] [id number] Social History Tobacco Use Types Packs/Day Years Used Date Smoking Tobacco: Never Smokeless Tobacco: Never Alcohol Use Standard Drinks/Week Comments No 0 (1 standard drink = 0.6 oz pur e alcohol) OASIS D0700: Social Isolation Answer Da te Recorded Frequency of experiencing loneliness or isolatio n Never 09/07/2023 OASIS A1250: Transportation Answer Date Recorded Lack of Transportation (Medical) No 09/07/2023 Lack of Transportation (Non-Medical) No 09/07/2023 Patient Unable or Declines to Respond No 09/07/2023 OASIS B1300: Health Literacy Answer Parth e Recorded Frequency of needing help to read materials from doctor or pharmacy Rarely 09/07/2023 AUDIT-C Answer Date Recorded Q1: How often do you have a drink containing alcohol? Never 07/16/2024 Q2: How many drinks containi ng alcohol do you have on a typical day when you are drinking? Patient does not drink Q3: How often do you have si x or more drinks on one occasion? Never 07/16/2024 PHQ-2 Answer Date Recorded PHQ-2 Total Score (If total score is 3 or more points, staff should administer the PHQ-9) 0 03/23/2024 Personal Safety Answer Date Recorded Have you ever been in or are you currently in a harmful physical or emotional relationship or is someone making you feel afraid or unsafe? 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 Never 07/16/2024 11:21 AM Maritza Barone RN Q2: How many drinks containing alcohol do you have on a typical day when you are drinking? Patient does not drink 07/16/2024 11:21 AM Maritza Barone RN Q3: How often do you have six or more drinks on one occasion? Never 07/16/2024 11:21 AM Maritza Barone RN documented as of this encounter Plan of Treatment Upcoming Encounters Date Type Department Care Team (Late st Contact Info) Description 08/30/2025 2:00 PM CDT Office Visit [facility] Obstetrics and [facility]necology [address] [facility] 13th [address] [id number] Anny Butts MD [id number] [place] [address] documented as of this encounter Visit Diagnoses Diagnosis Screening for colon cancer- Primary Special screening for malignant neoplasms, colon documented in this encounter Admitting Diagnoses Diagnosis Screening for colon cancer Special screening for malignant neoplasms, colon documented in this encounter Care Teams Automation Machine Operator Relationship Specialty Start Date End Date Donal Tovar MD PCP - General 09/17/14 documented as of this encounter
--- OUTSIDE RECORDS SUMMARY | 2024-08-18 14:40 | XMS_ITS ---
Author Organization [facility] Address [address] [place] [address] Care Team Providers Care Sustainability Communicator Name Role Phone La, Donal Primary Care Provider UnavailYaniv Meza Unavailable [phone] Melinda Field Unavailable [phone] REASON FOR VISIT ARC follow-up; continues allergy avoidance, on meds, and continues SCIT at MM dosing, Historical asthma diagnosis - on Flovent BID with no interval JUAN use. ACT 20. Medications Medication SIG (Take, Route, Frequency, Duration) Notes Start Date End Date Status FLOVENT Not-Taking Flovent HFA *Please review and pick correct strength-formula tion from Souktel options. If intended option is not shown, discontinue and re-order from Quick Search* Not-Taking Ipratropium [place] 0.06 % 2 sprays in each nostril Nasally Four times a day for 30 days Active SIT (Traditional) variable - see record per schedule subcutaneous per schedule for 999 days Active IPRATROPIUM BROMIDE HYDROUS, 1 G *Please review for potential replacement for e-prescription and drug interaction check* Not-Taking Rosuvastatin Calcium 5 MG 1 tab(s) orally once a day for 30 day(s) Active Azelastine HCl 137 MCG/SPRAY 1 puff in each nostril Nasally Twice a day for 30 days 01/12/2024 Active EPIPEN 2-PARMINDER 0.3 mg as directed intramuscularly once for 30 days Active NASAL WASHES N/A as directed intranasally as needed for 30 Active SIT (CLUSTER) VARIABLE PER SCHEDULE SC PER SCHEDULE for TO BE DETERMINED *Please review for potential replacement for e-prescription and drug interaction check* 04/20/2022 Active CETIRIZINE 10 mg 1 tab(s) orally once a day for 30 days Active FLUTICASONE NASAL 50 mcg/inh 2 spray(s) in each nostril BID for 30 day(s) Active OMEPRAZOLE 20 mg 1 cap(s) orally once a day for 30 day(s) Active Fluticasone Propionate 50 MCG/ACT 2 spray(s) in each nostril BID for 30 day(s) Active Cetirizine HCl 10 MG 1 tab(s) orally once a day for 30 days Active Flovent HFA CFC FREE 110 MCG/INH 2 PUFF(S) INHALED 2 TIMES A DAY for 30 DAYS *Please review and pick correct strength-formula tion from Souktel options. If intended option is not shown, discontinue and re-order from Quick Search* Active AEROCHAMBER MDI SPACER - MOUTHPIECE (ADULT) N/A As directed PO Per asthma action plan for 30 day(s) Active FLOVENT HFA CFC free 110 mcg/inh 2 puff(s) inhaled 2 times a day for 30 days Active Omeprazole 20 MG 1 cap(s) orally once a day for 30 day(s) Active ALBUTEROL (EQV-PROAIR HFA) 90 mcg/inh 2 puff(s) inhaled every 6 hours for 30 day(s) Active EpiPen 2-Parminder 0.3 mg as directed intramuscularly once for 30 days Active Encounters Encounter Location Date Provider Diagnosis [facility] [address] [address] 07/19/2024 Melinda Field Allergic rhinitis du e to pollen J30.1 ; Allergic rhinitis due to animal (cat) (dog) hair and dander J30.81 ; Other allergic rhinitis J30.89 ; Other chronic allergic conjunctivitis H10.45 ; Cough, unspecified R05.9 ; Chronic rhinitis J31.0 and Elevated blood-pressure reading, without diagnosis of hypertension R03.0 Assessments Encounter Date Diagnosis (ICD Code) Assessment Notes Treatment Notes Treatment Clinical Notes Section Notes 07/19/2024 Allergic rhinitis due to pollen (ICD-10 - J30.1) Stephanie clearly suffers from atopic disease based upon our prior skin testing. Accordingly, we have introduced a new, aggressive medication regimen, discussed nasal washes and allergy-specific avoidance measures. Remains on lower MM dosing with minimal issues. - Not due for dosing today. Continue per schedule. - Continue medications as listed above. - Continue to bring AIE to SCIT appointments. Patient was instructed that epinephrine needs to be carried to each immunotherapy visit and should be carried 2 hrs after dosing. - Return in 3 months for E&M 07/19/2024 Allergic rhinitis due to animal (cat) (dog) hair and dander (ICD-10 - J30.81) Follow allergen avoidance, meds and continue SCIT as an adjunctive treatment to current regimen 07/19/2024 Other allergic rhinitis (ICD-10 - J30.89) Follow allergen avoidance, meds and continue SCIT as an adjunctive treatment to current regimen 07/19/2024 Other chronic allergic conjunctivitis (ICD-10 - H10.45) Given ocular signs and symptoms I encouraged allergy avoidance measures and meds as above. If symptoms persist, consider adding additional medications including intraocular antihistamine/mas t cell stabilizer, PRN and continue SCIT as an adjunctive measure 07/19/2024 Cough, unspecified (ICD-10 - R05.9) Reports history of asthma since childhood though has not been on a controller since her 20's. Denies any recurrent cough or SOB. Previously taking Flovent once a month for cough, now using BID. Prior spirometry was performed showing severe obstruction. Post-BD response with 11% change in FEV1 though only 50 cc. Spirometry today comparable to 02/2022 spirometry. ACT 20. I suspect cough is combination of ARC, RAD, and GERD. No interval JUAN since last Fall. 07/19/2024 Chronic rhinitis (ICD-10 - J31.0) Recurrent rhinorrhea in the setting of food ingestion c/w gustaory rhinitis. Currently using ipratropium 2-3 times. Given continued rhinorrhea, I advised increasing to 4 times daily. PCP recommend ENT evaluation so she is considering. 07/19/2024 Elevated blood-pressure reading, without diagnosis of hypertension (ICD-10 - R03.0) BP elevated today without symptoms of urgency or emergency. Continue serial checks and follow-up with PCP 07/19/2024 Other Plan Of Treatment Medication Medication Name Sig Start Date Stop Date Notes Ipratropium [place] 0.06 % 2 sprays in e ach nostril Nasally Four times a day for 30 days SIT (Traditional) variable - see record per schedule subcutaneous per schedule for 999 days EPIPEN 2-PARMINDER 0.3 mg as directed intramus cularly once for 30 days NASAL WASHES N/A as directed intranas ally as needed for 30 CETIRIZINE 10 mg 1 tab(s) orally once a day for 30 days FLUTICASONE NASAL 50 mcg/inh 2 spray(s) in each nostril BID for 30 day(s) OMEPRAZOLE 20 mg 1 cap(s) orally once a day for 30 day(s) AEROCHAMBER MDI SPACER - MOUTHPIECE (ADULT) N/A As directed PO Per asthma action plan for 30 day(s) FLOVENT HFA CFC free 110 mcg/inh 2 puff(s) inhaled 2 times a day for 30 days ALBUTEROL (EQV-PROAIR HFA) 90 mcg/inh 2 puff(s) inhaled every 6 hours for 30 day(s) Treatment Notes Assessment Notes Allergic rhinitis due to pollen Stephanie clearly suffers from atopic disease based upon our prior skin testing. Accordingly, we have introduced a new, aggressive medication regimen, discussed nasal washes and allergy-specific avoidance measures. Remains on lower MM dosing with minimal issues. - Not due for dosing today. Continue per schedule. - Continue medications as listed above. - Continue to bring AIE to SCIT appointments. Patient was instructed that epinephrine needs to be carried to each immunotherapy visit and should be carried 2 hrs after dosing. - Return in 3 months for E&M Allergic rhinitis due to ani mal (cat) (dog) hair and dander Follow allergen avoidance, meds and continue SCIT as an adjunctive treatment to current regimen Other allergic rhinitis Follow allergen avoidance, meds and continue SCIT as an adjunctive treatment to current regimen Other chronic allergic conjunctivitis Gi lacey ocular signs and symptoms I encouraged allergy avoidance measures and meds as above. If symptoms persist, consider adding additional medications including intraocular antihistamine/mast cell stabilizer, PRN and continue SCIT as an adjunctive measure Cough, unspecified Reports history of a sthma since childhood though has not been on a controller since her 20's. Denies any recurrent cough or SOB. Previously taking Flovent once a month for cough, now using BID. Prior spirometry was performed showing severe obstruction. Post-BD response with 11% change in FEV1 though only 50 cc. Spirometry today comparable to 02/2022 spirometry. ACT 20. I suspect cough is combination of ARC, RAD, and GERD. No interval JUAN since last Fall. Chronic rhinitis Recurrent rhinorrhea in the setting of food ingestion c/w gustaory rhinitis. Currently using ipratropium 2-3 times. Given continued rhinorrhea, I advised increasing to 4 times daily. PCP recommend ENT evaluation so she is considering. Elevated blood-pressure read ing, without diagnosis of hypertension BP elevated today without symptoms of urgency or emergency. Continue serial checks and follow-up with PCP Next Appt Details Follow Up: 1 Week, 3 Months, Reason: SCIT,Evaluation and Management Progress Notes * Elia RODRÍGUEZB:01/1956 (68 yo F)Acc No.[id number]:07/19/2024 Progress Notes Patient: Stephanie COLE Provider: ALEKSANDER Marie :1955 A ge:68 Y S ex:Female Date:07/19/2024 Address:[address] [place], [place] [id number] Pcp:Donal Tovar Subjective: * Chief Complaints: * 1 . ARC follow-up; continues allergy avoidance, on meds, and continues SCIT at MM dosing. 2. Historical asthma diagnosis - on Flovent BID with no interval JUAN use. ACT 20.. * HPI: * Introduction: I had the pleasure of seeing Yahir Rodríguez, a 68 y/o female with history of ARC and presumed asthma returning for interval evaluation and management. She is here with her caregiver today. She is new to me, last evaluated by TARAS Currie in 12/2023. She continues to tolerate SCIT, previously with LLRs. Overall with clear benefit on SCIT. She was previously [facility], on SCIT, She reports being on SCIT since childhood 30 years ago. Says cats would put me in an asthma fit. Currently taking Ipratropium with benefit though still only using 2-3 times a day. Still with continued runny nose, worse at night. Continues to have PND and sneezing jags. She also reports history of asthma, now back on Flovent BID with no interval JUAN use. Reports being diagnosed 30 years ago. Noted exacerbation in past resulting in ED visit. Treated with Flovent. Admits to no longer using. Was on controller in her 20's but has not needed. Rarely using JUAN outside of the Fall season. Does note reflux occurring q other day. No prior hospitalizations or lower airway infections. T jono, she reports no fevers, chills, night sweats or other constitutional symptoms. * ROS: A LLERGY: Positive p er the HPI and history, otherwise unremarkable.? S PECIAL SENSES: Positve for n one. C ONSTITUTIONAL: Positive for n one. E NT: Positive p er the HPI and history, otherwise unremarkable.? R ESPIRATORY: Positive p er the HPI and history, otherwise unremakable.? O PHTHALMOLOGY: Positive for p er the HPI and history, otherwise unremarkable. E NDOCRINOLOGY: Positive for n one. C ARDIOLOGY: Positive for n one. G ASTROENTEROLOGY: Positive for n one. U ROLOGY: Positive for n one. D ERMATOLOGY: Positive for p er the HPI and history, otherwise unremakable. N EUROLOGY: Positive for n one. H EMATOLOGY/LYMPH: Positive for n one. M USCULOSKELETAL: Positive for n one. P SYCHOLOGY: Positive for n one. A ll other review of systems per the HPI and history, otherwise unremarkable. * Medical History: * Medications: T beng EpiPen 2-Parminder 0.3 mg kit as directed intramuscularly once , Taking EpiPen 2-Parminder 0.3 mg kit as directed intramuscularly once , Taking ALBUTEROL (EQV-PROAIR HFA) 90 mcg/inh aerosol 2 puff(s) inhaled every 6 hours , Taking AEROCHAMBER MDI SPACER - MOUTHPIECE (ADULT) N/A Spacer for MDI use As directed PO Per asthma action plan , Taking FLOVENT HFA CFC free 110 mcg/inh aerosol 2 puff(s) inhaled 2 times a day , Taking OMEPRAZOLE 20 mg delayed release capsule 1 cap(s) orally once a day , Taking CETIRIZINE 10 mg tablet 1 tab(s) orally once a day , Taking FLUTICASONE NASAL 50 mcg/inh spray 2 spray(s) in each nostril BID , Taking NASAL WASHES N/A 1 quart of sterilized tap water or distilled water, 1 tsp NaCl, 1 pinch of baking soda as directed intranasally as needed , Taking Ipratropium [place] 0.06 % Solution 2 sprays in each nostril Nasally Four times a day , Taking SIT (Traditional) variable - see record variable - see record per schedule subcutaneous per schedule , Taking Flovent HFA CFC FREE 110 MCG/INH AEROSOL 2 PUFF(S) INHALED 2 TIMES A DAY , Notes to Pharmacist: *Please review and pick correct strength-formulation from Souktel options. If intended option is not shown, discontinue and re-order from Quick Search*, Taking Omeprazole 20 MG Capsule Delayed Release 1 cap(s) orally once a day , Taking Cetirizine HCl 10 MG Tablet 1 tab(s) orally once a day , Taking Fluticasone Propionate 50 MCG/ACT Suspension 2 spray(s) in each nostril BID , Taking SIT (CLUSTER) VARIABLE SEE RECORD PER SCHEDULE SC PER SCHEDULE , Notes to Pharmacist: *Please review for potential replacement for e-prescription and drug interaction check*, Taking Rosuvastatin Calcium 5 MG Tablet 1 tab(s) orally once a day , Taking Azelastine HCl 137 MCG/SPRAY Solution 1 puff in each nostril Nasally Twice a day , Not-Taking/PRN FLOVENT , Not-Taking/PRN Flovent HFA , Notes to Pharmacist: *Please review and pick correct strength-formulation from Souktel options. If intended option is not shown, discontinue and re-order from Quick Search*, Not-Taking/PRN IPRATROPIUM BROMIDE HYDROUS, 1 G , Notes to Pharmacist: *Please review for potential replacement for e-prescription and drug interaction check* Objective: * Vitals: * Examination: G eneral examination: General appearance: p leasant, well-developed, well-nourished , female, coughing, appearing anxious. HEENT: p upils equal, round, and reactive to light and accommodation, conjunctiva are injected bilaterally, no tenderness to palpation of the sinuses, TM's without evidence of acute infection, thinning of septum noted bilaterally, turbinates 2+ swollen and pale inferiorly bilaterally, clear rhinorrhea is present, no polyps noted, no septal perforation, posterior oropharynx is erythematous and cobblestoning is present, erythema on pharyngeal wall, no exudates, no tongue swelling, and uvula is midline. Oral cavity: n ormal, no lesions. Breasts : n ot performed. Heart: R RR, S1-S2, no murmurs, no rubs, no gallops. Lungs: c lear to auscultation in all lung pablo, no wheezes or crackles. Neurologic exam: u nremarkable. Skin: n ormal, no visible rash. Peripheral pulses: n ormal (2+) bilaterally. Back: n ormal. Extremities: n ormal ROM, no clubbing, no cyanosis, no edema. Genitalia: n ot performed. Assessment: * Assessment: 1. A llergic rhinitis due to pollen - J30.1 (Primary) 2 . A llergic rhinitis due to animal (cat) (dog) hair and dander - J30.81 3 . O ther allergic rhinitis - J30.89 4 . O ther chronic allergic conjunctivitis - H10.45 5 . C ough, unspecified - R05.9 6 . C hronic rhinitis - J31.0 ?7. E levated blood-pressure reading, without diagnosis of hypertension - R03.0 ? Plan: * Treatment: 2. A llergic rhinitis due to animal (cat) (dog) hair and dander Notes: Follow allergen avoidance, meds and continue SCIT as an adjunctive treatment to current regimen 3. O ther allergic rhinitis Notes: Follow allergen avoidance, meds and continue SCIT as an adjunctive treatment to current regimen 4. O ther chronic allergic conjunctivitis Notes: Given ocular signs and symptoms I encouraged allergy avoidance measures and meds as above. If symptoms persist, consider adding additional medications including intraocular antihistamine/mast cell stabilizer, PRN and continue SCIT as an adjunctive measure 5. C ough, unspecified Continue ALBUTEROL (EQV-PROAIR HFA) aerosol, 90 mcg/inh, 2 puff(s), inhaled, every 6 hours, 30 day(s); C sandra AEROCHAMBER MDI SPACER - MOUTHPIECE (ADULT) Spacer for MDI use, N/A, As directed, PO, Per asthma action plan, 30 day(s), 1, Refills 11; C ontinue FLOVENT HFA aerosol, CFC free 110 mcg/inh, 2 puff(s), inhaled, 2 times a day, 30 days, 1, Refills 0. Notes:Reports history of asthma since childhood though has not been on a controller since her 20's. Denies any recurrent cough or SOB. Previously taking Flovent once a month for cough, now using BID. Prior spirometry was performed showing severe obstruction. Post-BD response with 11% change in FEV1 though only 50 cc. Spirometry today comparable to 02/2022 spirometry. ACT 20. I suspect cough is combination of ARC, RAD, and GERD. No interval JUAN since last Fall. 6. C hronic rhinitis Increase Ipratropium [place] Solution, 0.06 %, 2 sprays in each nostril, Nasally, Four times a day, 30 days, 1, Refills 2. Notes: Recurrent rhinorrhea in the setting of food ingestion c/w gustaory rhinitis. Currently using ipratropium 2-3 times. Given continued rhinorrhea, I advised increasing to 4 times daily. PCP recommend ENT evaluation so she is considering. 7. E levated blood-pressure reading, without diagnosis of hypertension Notes: BP elevated today without symptoms of urgency or emergency. Continue serial checks and follow-up with PCP 8. O thers Continue OMEPRAZOLE delayed release capsule, 20 mg, 1 cap(s), orally, once a day, 30 day(s), 30.? * Procedure Codes: G 8427 DOC MEDS VERIFIED W/[place], [address] PT-FOCUSED HLTH RISK ASSMT, A4617 Mouthpiece, 29430 RESPIRATORY FLOW VOLUME LOOP * Preventive Medicine: Counseling: D iet C ontinue food avoidance: milk, TNs, PN. E xercise A void heavy lifting on days of allergy immunotherapy. M edication instruction: W atch for side effects of prescribed medications, Nasal steroid/antihistamine instruction: avoid septum, Nasal steroid instruction: avoid septum, Injectable epinephrine education and instruction w/ discussion of signs and symptoms of anaphylaxis and reasons to seek urgent or emergent care, Watch for side effects of prescribed medications. E ducation: G ENERAL EDUCATION: Our staff spent an additional 30 minutes in direct contact with the patient educating them on their current diagnoses and proper treatment and prevention of symptoms and the proper use of medications, ASTHMA EDUCATION:, Our staff discussed pulmonary function testing and results with the patient/family, Our staff trained the patient on the appropriate use of MDI/DPI/Respimat/spacer/nebulizer treatments for future use, Able to return demonstration of self-injectable epinephrine. E ducation 2: A RC EDUCATION: Our staff discussed the appropriate allergen avoidance measures and medication utilization including upper airway hygiene with daily nasal washes given the patient's clinical status and diagnoses. SCIT EDUCATION: Discussed allergy immunotherapy including the relative risks, benefits and alternatives to this treatment as an adjunctive measure to current therapy, Allergy Immunotherapy: Risks: bleeding, infection, allergic reaction, anaphylaxis = severe allergic reaction that can cause ; Benefits: reduced need for medications, improved symptoms, disease modification. Alternatives: watch/wait, change medication regimen, improve allergy avoidance measures, Our staff discussed the warning signs of anaphylaxis and the indications to use self-injectable epinephrine and seek urgent or emergent care. P atient education material sent to portal? Y es C are goal follow up plan BMI management provided Y es Nutrition/Dietary Counseling provided?Yes Below Normal BMI Follow-up D ietary education for weight gain B P Management: PRE-HYPERTENSIVE FOLLOW-UP PLAN: F ollow-up 1 month REFERRAL TO ALTERNATIVE / PRIMARY CARE PROVIDER: R joseal to general practitioner * Follow Up: 1 Week, 3 Months (Reason: SCIT,Evaluation and Management) * Billing Information: * Visit Code: 96291 Office Visit, Est Pt., Level 4. Modifiers: 25 * Procedure Codes: G8427 DOC MEDS VERIFIED W/[place]. [address] PT-FOCUSED HLTH RISK ASSMT. A4617 Mouthpiece. [address]371 RESPIRATORY FLOW VOLUME LOOP. * Electronic signature of ALEKSANDER Villalobos on 08/18/2024 at 02:39 PM CDT Sign off status: Pending * Provider: ALEKSANDER Marie Date: 0 07/19/2024 Generated for Juno zamorano/Erich/Chris on: 0 08/18/2024 02:39 PM CDT History and Physical Notes * HPI (History of Present Illness) Category Sub-Category Detail Notes Category Not es *Introduction I had the pleasure o f seeing Stephanie Rodríguez, a 68 y/o female with history of ARC and presumed asthma returning for interval evaluation and management. She is here with her caregiver today. She is new to me, last evaluated by TARAS Currie in 12/2023. She continues to tolerate SCIT, previously with LLRs. Overall with clear benefit on SCIT. [facility], on S[facility], She reports being on SCIT since childhood 30 years ago. Says cats would put me in an asthma fit. Currently taking Ipratropium with benefit though still only using 2-3 times a day. Still with continued runny nose, worse at night. Continues to have PND and sneezing jags. She also reports history of asthma, now back on Flovent BID with no interval JUAN use. Reports being diagnosed 30 years ago. Noted exacerbation in past resulting in ED visit. Treated with Flovent. Admits to no longer using. Was on controller in her 20's but has not needed. Rarely using JUAN outside of the Fall season. Does note reflux occurring q other day. No prior hospitalizations or lower airway infections. Today, she reports no fevers, chills, night sweats or other constitutional symptoms Examination Category Sub-Category Detail Notes Category Not es General examination HEENT: pupils equal , round, and reactive to light and accommodation, conjunctiva are injected bilaterally, no tenderness to palpation of the sinuses, TM's without evidence of acute infection, thinning of septum noted bilaterally, turbinates 2+ swollen and pale inferiorly bilaterally, clear rhinorrhea is present, no polyps noted, no septal perforation, posterior oropharynx is erythematous and cobblestoning is present, erythema on pharyngeal wall, no exudates, no tongue swelling, and uvula is midline Heart: RRR, S1-S2, no murmu rs, no rubs, no gallops Lungs: clear to auscultatio n in all lung pablo, no wheezes or crackles Extremities: normal ROM, no clubb ing, no cyanosis, no edema General appearance: pleasant, well-devel oped, well-nourished , female, coughing, appearing anxious Skin: normal, no visible r woody Neurologic exam: unremarkable Oral cavity: normal, no lesions Breasts : not performed Peripheral pulses: normal (2+) bilatera lly Back: normal Genitalia: not performed
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
--- OUTSIDE RECORDS SUMMARY | 2024-08-18 14:41 | XMS_ITS | Encounter Summary ---
Author Organization [facility] Address [facility] [place] [address] Care Team Providers Care Administrative Judge Name Role Phone Donal Tovar MD Primary Care Provider [phone] Ubaldo Johnson MD Unavailable [phone] Encounter Details Date Type Department Care Team (Late st Contact Info) Description 08/13/2019 Abstract [facility] at [facility] [address] [place], [place] [id number] Jayme Rizo MA Social History Tobacco Use Types Packs/Day Years Used Date Smoking Tobacco: Never Smokeless Tobacco: Never Alcohol Use Standard Drinks/Week Comments No 0 (1 standard drink = 0.6 oz pur e alcohol) AUDIT-C Answer Date Recorded Frequency of Alcohol Consumption Never 03/05/2019 Average Number of Drinks Not on file 019 Frequency of Binge Drinking Not on file 02/07 Comments Unknown Sex and Gender Information Value Date Recorded Sex Assigned at Not on file Legal Sex Female 7:58 PM CDT Gender Identity Not on file Sexual Orientation Not on file documented as of this encounter Plan of Treatment Upcoming Encounters Date Type Department Care Team (Late st Contact Info) Description 09/17/2024 2:00 PM CDT Office Visit [facility] [address] [place], [place] [id number] Ubaldo Johnson MD [facility] [place] [address] [address] documented as of this encounter Procedures Procedure Name Priority Date/Time Associated Diagnosis Comments COMPREHENSIVE METABOLIC PANEL Routine 01/22/2019 LIPID PANEL Routine 01/22/2019 COMPREHENSIVE METABOLIC PANEL Routine 02/01/2018 LIPID PANEL Routine 02/01/2018 documented in this encounter Results * LIPID PANEL (01/22/2019) CHOLESTEROL 170 HDL 90.1 TRIGLYCERIDES 117 NON HDL CHOLESTEROL 79.9 LDL (CALCULATED) 57 01/22/2019 [facility] Final Result * (ABNORMAL) COMPREHENSIVE METABOLIC PANEL (01/22/2019) SODIUM S/P/B 139 POTASSIUM S/P/B 4.5 CO2 27 CHLORIDE S/P/B 99 GLUCOSE 78 mg/dL CALCIUM S/P/B 9.5 BUN 15 CREATININE S/P/B 0.30(A) 0.5 - 1.0 EGFR AFR. AMER. >60 <=90 EGFR NON-AFR. AMER. >60 <=90 ALKALINE PHOSPHATASE S/P/B 131 ALT 21 AST 23 BILIRUBIN TOTAL S/P/B 0.5 ALBUMIN S/P/B 4.1 3.5 - 5.0 TOTAL PROTEIN S/P/B 7.2 01/22/2019 [facility] Final Result * LIPID PANEL (02/01/2018) CHOLESTEROL 163 HDL 89 TRIGLYCERIDES 83 NON HDL CHOLESTEROL 74 LDL (CALCULATED) 57 02/01/2018 [facility] Final Result * (ABNORMAL) COMPREHENSIVE METABOLIC PANEL (02/01/2018) SODIUM S/P/B 137 POTASSIUM S/P/B 4.4 CO2 28 CHLORIDE S/P/B 101 GLUCOSE 83 mg/dL CALCIUM S/P/B 9.4 BUN 11 CREATININE S/P/B 0.43(A) 0.5 - 1.0 EGFR AFR. AMER. 125(A) <=90 EGFR NON-AFR. AMER. 108(A) <=90 ALKALINE PHOSPHATASE S/P/B 76 ALT 23 AST 28 BILIRUBIN TOTAL S/P/B 0.6 ALBUMIN S/P/B 4.2 3.5 - 5.0 TOTAL PROTEIN S/P/B 6.6 GLOBULIN 2.4 02/01/2018 [facility] Final Result documented in this encounter Visit Diagnoses Not on filedocumented in this encounter Care Teams Administrative Judge Relationship Specialty Start Date End Date Donal Tovar MD PCP - General INTERNAL MEDICINE 02/06/19 Ubaldo Johnson MD [facility] [id number] [place] [address] [employer] Supervisor INTERVENTIONAL CARDIOLOGY 02/15/19 documented as of this encounter
--- OUTSIDE RECORDS SUMMARY | 2024-08-18 14:41 | XMS_ITS | Clinical Summary ---
Author Organization [facility] Address [address] [place] [address] Care Team Providers Care Grades 1 6 Tutor Name Role Phone Donal Tovar MD Primary Care Provider Allergies Active Allergy Reactions Criticality Noted Date Comments Amitriptyline Hives,Urticaria Medium 08/06/2013 Sulfamethoxazole-Trime thoprim Other (See comments) Low 07/07/2018 Deep wheezing and cough spasms Cat Hair Standardized Allergenic Extract Cough Low 02/28/2013 Cephalexin Other (See comments) Low 01/09/2019 blood in stool and coughing up blood blood in stools Fructose Other (See comments) Low 08/30/2012 malabsorption fructose malabsorbtion Shellfish Stomach upset,Swelling Medium 02/28/2013 Medications magnesium oxide (MAG-OX) 250 mg (150.8 mg elemental) tabletIndicati ons:hypomagnes emia Take 0.5 tablets (125 mg total) by mouth every morning Active sodium chloride (OCEAN) 0.65 % dropsIndicatio ns:Dry Nose Administer 1 spray into affected nostril(s) as needed for congestion Active cholecalcifero l (VITAMIN D-3) 5,000 unit tabletIndicati ons:Prevention of Vitamin D Deficiency Take 1 tablet (5,000 Units total) by mouth every 14 (fourteen) days Active polyethylene glycol (MIRALAX) 17 gram packetIndicati ons:constipati on Take 1 packet (17 g total) by mouth every morning Active multivitamin-c alcium carb tablet,chewabl eIndications:V itamin Deficiency Prevention Take 0.5 tablets by mouth every morning Active ipratropium (ATROVENT) 21 mcg (0.03 %) nasal sprayIndicatio ns:runny nose Administer 2 sprays into each nostril 2 (two) times a day as needed for rhinitis 2 Active cetirizine (ZyrTEC) 10 mg tabletIndicati ons:Seasonal Allergic Rhinitis,aller gies Take 1 tablet (10 mg total) by mouth daily as needed for allergies Active UNABLE TO FINDIndication s:SUPPLEMENT Take 0.5 each by mouth every morning Med Name: OSTEO-GAURD Active cranberry fruit extract (cranberry extract) 250 mg capsuleIndicat ions:SUPPLEMEN T Take 1 capsule (250 mg total) by mouth every morning Active acetaminophen (TYLENOL) 325 mg tabletIndicati ons:Pain Take 1 tablet (325 mg total) by mouth every 6 (six) hours as needed for pain Active OMEPRAZOLE MAGNESIUM ORALIndication s:Treatment of Non-Bleeding Gastric Disorder Take 10 mg by mouth every morning Active rosuvastatin (CRESTOR) 5 mg tabletIndicati ons:hyperlipid emia TAKE 1 TABLET (5 MG TOTAL) BY MOUTH NIGHTLY 90 tablet 1 4 Active estradioL (VAGIFEM) 10 mcg tabletIndicati ons:Atrophy of Vulva INSERT 0.5 TABLETS (5 MCG TOTAL) INTO THE VAGINA NIGHTLY 15 tablet 3 4 Active Additional Information Patient taking differently:5 mcg vaginalEvery other day, Indications: Atrophy of Vulva, Informant: Self, Reported on 08/09/2024 fluticasone propionate (FLONASE) 50 mcg/actuation nasal sprayIndicatio ns:Other chronic sinusitis Administer 1 spray into each nostril 2 (two) times a day 1 each 11 5 Active famotidine (PEPCID) 20 mg tabletIndicati ons:Other chronic sinusitis Take 0.5 tablets (10 mg total) by mouth 2 (two) times a day 60 tablet 5 026 Active fluticasone propionate (FLOVENT HFA) 110 mcg/actuation inhalerIndicat ions:Maintenan ce Therapy for Asthma,allergi es Inhale 2 puffs 2 (two) times a day as needed Rinse mouth with water after use. Do not swallow. 025 Discontin ued(Dupli cha order) fluticasone propionate (FLONASE) 50 mcg/actuation nasal sprayIndicatio ns:Allergic Rhinitis Administer 2 sprays into each nostril daily as needed for allergies 025 Discontin ued(Dupli cha order) Hospital, Clinic, or Other Facility Administered Medication Ordered Dose Route Frequency Start Date End Date Status romosozumab-aqqg (EVENITY) 210 mg/2.34 mL subcutaneous syringe 210 mgIndications:Age-related osteoporosis without current pathological fracture 210 mg subQ Once 08/07/2024 08/07/2024 Ended Active Problems Problem Noted Date Diagnosed Date Dysphasia 04/20/2024 Screening for colon cancer 09/28/2023 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 Hearing and vision intact. She gets around quite well with use of Rollator. Admits to use smoke and carbon monoxide alarms. The fall risk is minimal. The cognitive and depression screening were negative for dementia. Pt has a living will and durable power of sports attorney in place. In regard to social hx- patient is a nonsmoker, social ETOH use, declined street drug use. Motor safety was discussed as well. Pt endorses wearing seatbelt in not drinking while driving. Patient admits to mild to moderate exercise with like to low intensity, healthy nutrition is admitted, and nutritional status is stable . BMI is All vaccinations are up-to-date including flu vaccination, pneumococcal, tetanus, and Pt is currently awaiting shingles/Shingrix vaccination. Last colonoscopy was completed around 2015- reordered today and requesting prior records from [facility] Last mammogram was negative in 2019- mammogram reordered today in office Last DEXA scan was 08/2018- due again in 2020 All wellness labs were discussed throughout in office today as well ASCVD risk: very low at 4.1% All current medications were reviewed well with Pt in regard to chronic conditions. Pt was encouraged to F/U for next annual Medicare wellness in 1 year in 6 months regarding chronic conditions Anxiety 02/28/2020 Gastroesophageal reflux disease without esophagi tis 02/28/2020 Assessment & Plan (02/28/2020 2:26 PM CDT): Trial of Pepcid once daily supporting her current dietary management. 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 With her current [place] and [place] 3 along with aspirin, heart healthy diet and mild exercise as tolerated given debility. Sacroiliitis, not elsewhere classified 9 Moderate malnutrition 11/13/2018 MAKI III (cervical intraepith elial neoplasia grade III) with severe dysplasia 06/25/2018 Weight loss 02/14/2017 Dwarfism 02/14/2017 Neurogenic bladder 02/14/2017 Assessment & Plan (02/28/2020 2:25 PM CDT): Self catheterizes at home but declines any concerns or complaints today. Follow- up with urologist as scheduled. Thoracogenic scoliosis of thoracolumbar region 1 Assessment & Plan (02/28/2020 2:26 PM CDT): Mild tenderness surrounding her thoracic spine likely D/T scoliosis. Recommending topical analgesics given her Hx of GERD and avoiding NSAID use. Heat, repositioning and further follow-up with ongoing sx. Hernia of anterior abdominal wall 09/14/2016 Diffuse esophageal spasm 04/29/2014 Fructose intolerance 04/08/2014 Osteoporosis 09/22/2013 Overview (08/10/2018): Zoledronic acid 2.5 mg doses given at [place], [place] - March 2009, July 2011, September 2013, June 2015 and July 2017 . She supplements her diet which includes almond milk with vitamin-D 5000 IU every 2 weeks. Previous medications include alendronate, teriparatide with severe reaction after 1st dose. Nasal congestion 12/18/2012 Perforation of nasal septum 12/18/2012 Fusion of spine of lumbar region 09/11/2012 Fusion of spine of thoracic region 09/11/2012 Scoliosis associated with other condition 2012 Low back pain 01/06/2012 Overview (08/11/2016): Lumbago Right sided sciatica 03/13/2009 Lumbago 03/13/2009 Muscle strain Resolved Problems Problem Noted Date Diagnosed Date Resolved Date Fall 11/12/2018 02/22/2019 Allergic state 09/22/2013 02/22/2019 Overview (08/11/2016): ALLERGY, UNSPECIFIED Abdominal pain 03/09/2010 02/22/2019 Encounters Date Type Department Care Team Description 08/09/2024 3:35 PM CDT Anesthesia Event [facility] Operating Room [address] [place] [address] Jonatan Silverman MD Richardson, Genea Michelle, AKI 08/09/2024 2:30 PM CDT - 08/09/2024 4:05 PM CDT Surgery [facility] Operating Room [address] [place] [address] Anny Butts MD LASER CO2 of the vagina 08/09/2024 12:26 PM CDT - 08/09/2024 6:03 PM CDT Hospital Encounter [facility] Operating Room [address] [place] [address] Anny Butts MD 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) Discharge Disposition: Discharge to home or self care 08/08/2024 Telephone [facility] Obstetrics and Gynecology [address] [facility] 13th [place] [address] [place] [id number] Destinee Alfred Surgery Confirmation 08/07/2024 3:00 PM CDT Clinical Support [facility] Primary Care at [address] [place] [phone] Age-related osteoporosis without current pathological fracture (Primary Dx) 08/06/2024 Telephone [facility] Neurosurgery [address] [facility] 6th [place] [address] [place] [address] Ayanna Ruiz NP 08/03/2024 3:00 PM CDT Office Visit [facility] ENT [address] [facility] [address] [place] [phone] Jillian Garvin MD Other chronic sinusitis (Primary Dx) 07/31/2024 Telephone [facility] Obstetrics and Gynecology [address] [facility] 13th [place] [address] [place] [address] Leanna Richardson RN 07/23/2024 Telephone [facility] Primary Care at [address] [place] [phone] Donal Tovar MD Medical Question/Miscellaneou s 07/05/2024 Orders Only [facility] Primary Care at [address] [address] Donal Tovar MD Dysphagia, unspecified type (Primary Dx) 07/03/2024 3:00 PM ORACLE DATABASE DEVELOPER Clinical Support [facility] Primary Care at [address] [place] [phone] Age-related osteoporosis without current pathological fracture (Primary Dx) 07/03/2024 Telephone [facility] Primary Care at [address] [place] [phone] Donal oTvar MD 07/03/2024 Hospital Encounter [facility] Center [address] [place] [address] Rosaura Gates MD 06/25/2024 Telephone [facility] Primary Care at [address] [place] [address] Donal Tovar MD Medical Question/Miscellaneou s 06/19/2024 Telephone [facility] Gastroenterology at [address] [place] [address] Tamar Sahaelle 06/15/2024 Telephone [facility] Primary Care at [address] [place] [phone] Donal Tovar MD Test Results; Call Back 06/08/2024 Telephone [facility] Obstetrics and Gynecology [address] [facility] 13th [place] [phone] Erika Meza RN 06/08/2024 Telephone [facility] Obstetrics and Gynecology [address] [facility] 13th [place] [address] Leanna Richardson RN 06/01/2024 5:27 PM ORACLE DATABASE DEVELOPER - 06/01/2024 11:59 PM ORACLE DATABASE DEVELOPER Hospital Encounter [address] [address] Discharge Disposition: Discharge to home or self care 06/01/2024 2:00 PM ORACLE DATABASE DEVELOPER Office Visit [facility] Obstetrics and Gynecology [address] [facility] 13th [place] [address] Anny Butts MD 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 (Primary Dx) 05/24/2024 Telephone [facility] Primary Care at [address] [place] [phone] Donal Tovar MD 05/23/2024 3:00 PM ORACLE DATABASE DEVELOPER Clinical Support [facility] Primary Care at [address] [phone] Age-related osteoporosis without current pathological fracture (Primary Dx) from Last 3 Months Immunizations Immunization Administration Dates Next Due Influenza, Quadrivalent, Hig h Dose, Preservative Free, Intrr 03/18/2023,03/17/2022 Influenza, Quadrivalent, Spl it, Intramuscular 03/06/2018,02/15/2017,03/10/2016 Influenza, Quadrivalent, Spl it, Preservative Free, Intramuscular 03/10/2021,02/28/2020,02/22/2019 Influenza, Trivalent, High D ose, Split, Preservative Free, Intramuscular 03/23/2024,03/10/2016 Influenza, Trivalent, IM (MDV) 6,03/27/2015,02/19/2013,03/14,03/15/2011 Influenza, Trivalent, Preser vative Free, Intramuscular 02/18/2010 Influenza, Trivalent, Recomb inant, Egg Free, Preservative Free, Antibiotic Free, IM (FLUBLOK) 03/11/2014 Influenza, Unspecified 02/15/2017 Pneumococcal Conjugate PCV 13 02/28/2020 Pneumococcal Polysaccharide PPV23 03/10/2021, Td, adsorbed 09/30/2002 Tdap 03/09/2013 ZOSTER LIVE 01/22/2016 ZOSTER Recombinant 06/03/2018,03/06/2018 Surgical History Surgery Date Site/Laterality Comments OTHER SURGICAL HISTORY 05/09/1959 - 05/08/1960 Left Shoulder Blade Surgery OTHER SURGICAL HISTORY 05/09/2010 - 05/08/2011 Chest Wall Hernia APPENDECTOMY 05/09/1966 - 05/08/1967 Appendectomy HERNIA REPAIR 05/09/2007 - 05/08/2008 Hernia repair SPINAL FUSION 05/09/1992 - 05/08/1993 HYSTERECTOMY 07/13/2018 ESOPHAGOGASTRODUODENOSCOPY 02/05/2021 NASAL SEPTUM SURGERY 08/31/2012 VAGINA SURGERY 04/09/2022 Laser CO2 VAGINA SURGERY 03/28/2023 Laser CO2 Medical History Medical History Date Comments Hx Other Medical catheterize 1-5 x daily Acquired scoliosis Scoliosis Hx Other Medical 1995 pelvic retentio n Hx Other Medical corkscrew shape d esophagus Hx Other Medical dry eyes Hx Other Medical flat feet 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 Howard Hx Other Medical 08/09/2012 esophagus surge ry Hx Other Medical diarrhea GI problem Joint pain Peripheral neuropathy Pelvic floor dysfunction Acid reflux Arthritis Cervical cancer (HCC) Abnormal Pap smear of cervix Asthma Family History Medical History Relation Name Comments Atrial fibrillation Father Atrial F ibrillation; Cause of : Atrial Fibrillation Colon cancer Father Cancer -colon; /Cancer, colon; Hypertension Father Hypertension; Stroke Father Stroke; Diabetes Maternal Grandfather Diabete s mellitus; Alcohol abuse Mother Alcoholism; /A lcoholism; Cause of : Alcoholism Depression Mother Depression; Leukemia Other 1 Cancer -leukemi a; Diabetes type II Other 2 Diabetes -T ype 2; Heart disease Other 3 Heart disease; Leukemia Paternal Grandmother Leukemi a; Scoliosis Sister Anesthesia problems Neg Hx Breast cancer Neg Hx Ovarian cancer Neg Hx Relation Name Status Comments Father (Age 80) Maternal Grandfather Mother (Age 42) Other 1 Other 2 Other 3 Paternal Grandmother Sister Social History Tobacco Use Types Packs/Day Years Used Date Smoking Tobacco: Never Smokeless Tobacco: Never Tobacco Cessation:Counseling Given: Not Answered Alcohol Use Standard Drinks/Week Comments No 0 [...] on file Legal Sex Female 11:55 PM ORACLE DATABASE DEVELOPER Gender Identity Not on file Sexual Orientation Not on file Obstetrics History Para Term AB IAB SAB Ectopic Multiple Livin g Live Births 0 0 0 2 2 Comments 15/0/0 LTR 7.1% Last Filed Vital Signs Vital Sign Reading Time Taken Comments Blood Pressure 154/63 08/09/2024 5:30 PM CDT Pulse 91 08/09/2024 5:30 PM CDT Temperature 36 C (96.8 F) 08/09/2024 5:10 PM CDT Respiratory Rate 12 08/09/2024 5:30 PM CDT Oxygen Saturation 100% 08/09/2024 5:30 PM CDT Inhaled Oxygen Concentration - - Weight 24.9 kg (55 lb) 08/09/2024 2:03 PM CDT Height 121.9 cm (4') 07/16/2024 11:20 AM CDT Body Mass Index 16.78 07/16/2024 11:20 AM CDT Plan of Treatment Upcoming Encounters Date Type Department Care Team (Late st Contact Info) Description 08/30/2025 2:00 PM CDT Office Visit [facility] Obstetrics and Gynecology [address] [facility] 13th [place] [address] [place] [address] Anny Butts MD [phone] [place] [address] Health Maintenance Due Date Last Done Comments Hepatitis B Screening 1973 DTaP/Tdap/Td Vaccine (2 - Td or Tdap) 03/09/2023 03/09/2013, 09/30/2002 Breast Cancer Screening-Mammogram 08/11/2023 08/10/2022, 03/26/2021, 01/16/2019, Additional history exists Covid-19 Vaccine (2023-2 5 season) 2024 03/24/2023, 02/18/2022, 10/12/2021, Additional history exists Depression Screening 03/23/2025 03/23/2024, 03/16/2022, 03/10/2021, Additional history exists Well Visit 65+ 03/23/2025 03/23/2024, 03/09, 03/16/2022, Additional history exists Fall Risk Assessment 08/09/2025 08/09/2024, 03/23/2024, 03/18/2023, Additional history exists Osteoporosis Screening-Bone Density Scan 02/14/2026 02/15/2024, 12/29/2021, 08/10/2018, Additional history exists Colon Cancer Screening-DNA Stool 06/08/2027 06/08/19 25, 02/09/2017 Colon Cancer Screening-CT Colonography Discontinued 02/09/2017 Colon Cancer Screening-Colonoscopy Discontinued 02/09/2017 Colon Cancer Screening-Sigmoidoscopy Discontinued 02/09/2017 Zoster Vaccine Completed 06/03/2018, 02/07, 01/22/2016 Hepatitis C Screening Completed 02/18/2021 Pneumococcal vaccine 65+ Completed 021, 02/28/2020, 12/06/2007 Influenza Vaccine Completed 03/23/2024, , 03/17/2022, Additional history exists Colon Cancer Screening-FIT Discontinued 06/08, 02/09/2017, 12/24/2016 Procedures Procedure Name Priority Date/Time Associated Diagnosis Comments IA AN PROCEDURE PLACEHOLDER Routine 08/09/2024 3:53 PM CDT IA AN ELECTIVE ENDOTRACHEAL AIRWAY Routine 08/09/2024 3:53 PM CDT COLPOSCOPY 08/09/2024 3:37 PM CDT 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) Case Notes 4/2- Changed line up per Destinee via phone call (EF) LASER CO2 08/09/2024 3:37 PM CDT 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) Case Notes 4/2- Changed line up per Destinee via phone call (EF) STOOL DNA COLOGUARD Routine 06/08/2024 2:00 PM ORACLE DATABASE DEVELOPER Screen for colon cancer SURGICAL PATHOLOGY Routine 06/01/2024 2: 16 PM ORACLE DATABASE DEVELOPER 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 IA COLPOSCOPY ENTIRE VAGINA W/VAGINA/CERVIX BX Routine 06/01/2024 2:00 PM ORACLE DATABASE DEVELOPER 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 DEXA AXIAL SKELETON BONE DENSITY 1 OR MORE SITES Schedule Routine, Read Routine (OP Routine) 02/15/2024 SCREENING MAMMOGRAM W KIKE Schedule Routine, Read Routine (OP Routine) 08/10/2022 HEPATITIS C ANTIBODY Routine 02/18/2021 1:45 PM CDT Encounter for hepatitis C screening test for low risk patient COLONOSCOPY Routine 02/09/2017 from Last 3 Months or Most Recently Relevant to Health Maintenance Results * IA AN ELECTIVE ENDOTRACHEAL AIRWAY, IA AN PROCEDURE PLACEHOLDER (08/09/2024 3:53 PM CDT) Narrative Jennifer Santana CRNA - 08/09/2024 3:53 PM CDT Jennifer Santana CRNA 08/09/2024 3:54 PM Airway Patient location: OR Urgency: elective Indications for airway management: anesthesia Difficult airway: no Staff: Supervising provider: Jonatan Silverman MD Placed by: GIN POLE OPERATOR: Jennifer Santana CRNA Emergent airway documentation: Risks and benefits discussed: yes Consent obtained: yes Consent given by: patient Airway prep: Preoxygenated: yes Patient position: sniffing Mask difficulty assessment: 0 - not attempted Spontaneous ventilation during airway: absent Sedation level during airway: GA Final airway details: Final airway type: endotracheal airway Tube type: ETT ETT size: 5.5 mm Cuffed: yes Technique used for successful ETT placement: video laryngoscopy Insertion site: oral Blade type: Domingo Video blade type: Gilliam Blade size: 3 Cormack-Lehane (video): grade I - full view of glottis Cuff inflated with: air ETT to teeth: 19 cm Placement verified by: auscultation and CO2 detection Airway secured with: silk tape Number of attempts: 1 Jonatan Silverman MD ANESTHESIA ORDERABLES Final Res ult * Stool DNA - Cologuard (06/08/2024 2:00 PM ORACLE DATABASE DEVELOPER) Stool DNA - Cologuard Negative Negative [employer] (CLIA #:[id number]) Comment: NEGATIVE TEST RESULT. A negative Cologuard result indicates a low likelihood that a colorectal cancer (CRC) or advanced adenoma (adenomatous polyps with more advanced pre-malignant features) is present. The chance that a person with a negative Cologuard test has a colorectal cancer is less than 1 in 1500 (negative predictive value >99.9%) or has an advanced adenoma is less than 5.3% (negative predictive value 94.7%). These data are based on a prospective cross-sectional study of 10,000 individuals at average risk for colorectal cancer who were screened with both Cologuard and colonoscopy. (Maame Couch. et al, N Engl J Med 2014;370(14):6182-2538) The normal value (reference range) for this assay is negative. COLOGUARD RE-SCREENING RECOMMENDATION: Periodic colorectal cancer screening is an important part of preventive healthcare for asymptomatic individuals at average risk for colorectal cancer. Following a negative Cologuard result, the [place] [employer] and U.S. Multi-Society Task Force screening guidelines recommend a Cologuard re-screening interval of 3 years. References: [place] [employer] Guideline for Colorectal Cancer Screening: https://www.cancer.org/cancer/knyyr-kagnto-egvyvt/elhzrvvio-ynwrhdvac-mlznfyi/ac s-rec ommendations.html.; Wilfrido MARIE, Gracie JEWELL, Frances MoralesK, Colorectal Cancer Screening: Recommendations for Physicians and Patients from the U.S. Multi-Society Task Force on Colorectal Cancer Screening , Am J Gastroenterology 2017; 112:0459-9015. TEST DESCRIPTION: Composite algorithmic analysis of stool DNA-biomarkers with hemoglobin immunoassay. Quantitative values of individual biomarkers are not reportable and are not associated with individual biomarker result reference ranges. Cologuard is intended for colorectal cancer screening of adults of either sex, 45 years or older, who are at average-risk for colorectal cancer (CRC). Cologuard has been approved for use by the U.S. FDA. The performance of Cologuard was established in a cross sectional study of average-risk adults aged 50-84. Cologuard performance in patients ages 45 to 49 years was estimated by sub-group analysis of near-age groups. Colonoscopies performed for a positive result may find as the most clinically significant lesion: colorectal cancer [4.0%], advanced adenoma (including sessile serrated polyps greater than or equal to 1cm diameter) [20%] or non- advanced adenoma [31%]; or no colorectal neoplasia [45%]. These estimates are derived from a prospective cross-sectional screening study of 10,000 individuals at average risk for colorectal cancer who were screened with both Cologuard and colonoscopy. (Maame Couch. et al, N Engl J Med 2014;370(14):3296-0306.) Cologuard may produce a false negative or false positive result (no colorectal cancer or precancerous polyp present at colonoscopy follow up). A negative Cologuard test result does not guarantee the absence of CRC or advanced adenoma (pre-cancer). The current Cologuard screening interval is every 3 years. ([place] [employer] and U.S. Multi-Society Task Force). Cologuard performance data in a 10,000 patient pivotal study using colonoscopy as the reference method can be accessed at the following location: www.basico.com/results. Additional description of the Cologuard test process, warnings and precautions can be found at [email or web address]. Stool 06/08/2024 2:00 PM ORACLE DATABASE DEVELOPER 06/09/2024 9:17 AM ORACLE DATABASE DEVELOPER us Donal Tovar MD LAB BODY FLUIDS AND STO OLS ORDERABLES Final Result [facility] (CLIA #:[id number]) [place] [address] * Surgical pathology (06/01/2024 2:16 PM ORACLE DATABASE DEVELOPER) Tissue specimen (specimen) (Vagina, Biopsy) 06/01/2024 2:16 PM ORACLE DATABASE DEVELOPER 06/01/2024 4:02 PM ORACLE DATABASE DEVELOPER Narrative PATHOLOGY [facility] - 06/05/2024 4:37 PM ORACLE DATABASE DEVELOPER EPIC results best viewed via link to PDF [facility] [place] [address] Note to Patients: This report may contain a detailed description of human tissue sent by a health care provider to the laboratory for pathologic evaluation. The content of this report is essential for diagnosis and may provide important critical findings. This information may be unfamiliar to patients to review without a medical professional present. It is advised that the patient review this report in the presence of a health care provider who can answer questions and explain the details. SURGICAL PATHOLOGY REPORT FINAL Patient Name: IVAN RODRÍGUEZ Gender: F : 1955 (Age: 68) Address: [address] [place] [address] Hospital #: [id number] Taken:06/01/2024 Received:06/01/2024 Reported: 06/05/2024 Patient Type: WUPT-EPIC Service: UNKNOWN Location: OB ONC CAM 1 Physician(s): Anny Butts M.D. Diagnosis: Vagina, cuff, biopsy - High-grade squamous intraepithelial lesion (HSIL, VAIN 2) - See comment [facility]/06/03/2024 16:49 By this signature, I attest that the above diagnosis is based upon my personal examination of the slides(and/or other material indicated in the diagnosis). Radha Palacios M.D. Report Electronically Reviewed and Signed Out By Radha Palacios M.D. 06/05/2024 16:37:24 Microscopic Description and Comment: The sections show poorly oriented fragments of squamous epithelium with cellular disarray and cytologic atypia that appeared to involve greater than half of the epithelial thickness. Immunohistochemical stains (single antibody procedures with appropriate controls) were performed to determine the grade of dysplasia. p16 is block positive in the areas of interest with accompanying ki67 index of 40%(involving the entire thickness). These findings are supportive of high-grade squamous intraepithelial lesion (HSIL, VAIN 3) Seun Rojas M.D. 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 Operative procedure: Vaginal cuff biopsy. Specimen(s) Received: A: Vaginal cuff Gross Description: Received in formalin, labeled with the patient s identifiers and vaginal cuff and consists of multiple bonner to bonner-white fragment(s) of soft tissue measuring 0.8 x 0.4 x 0.1 cm in aggregate. Labeled A1. Jar 0. sxst/06/01/2024 18:03 PA(s): Carla Skelton By this signature, I attest that the above diagnosis is based upon my personal examination of the slides(and/or other material). Addenda/Procedures The performance characteristics of some immunohistochemical stains, fluorescence in-situ hybridization tests and immunophenotyping by flow cytometry cited in this report (if any) were determined by the Surgical Pathology and Flow Cytometry Departments at [facility] as part of an ongoing advanced quality engineer program and in compliance with federally mandated regulations drawn from the Clinical Laboratory Improvement Act of 1988 (CLIA '88). Some of these tests rely on the use of analyte specific reagents and are subject to specific labeling requirements by the US Food and Drug Administration. Such diagnostic tests may only be performed in a facility that is certified by the Department of Health and Human Services as a high complexity laboratory under CLIA '88. The FDA has determined that such clearance or approval is not necessary. This test is used for clinical purposes. It should not be regarded as investigational or for research. Nevertheless, federal rules concerning the medical use of analyte specific reagents require that the following disclaimer be attached to the report: This test was developed and its performance characteristics determined by the Surgical Pathology and Flow Cytometry Departments of [facility]. It has not been cleared or approved by the U. S. Food and Drug Administration. IMAGES AND SCANNED DOCUMENTS, IF INCLUDED, ONLY VIEWABLE IN PDF VERSION OF REPORT us Anny Butts MD LAB PATHOLOGY ORDERABLE S Final Result PATHOLOGY [facility] 3rd Floor [place], [place] [phone] * IA COLPOSCOPY ENTIRE VAGINA W/VAGINA/CERVIX BX (06/01/2024 2:00 PM ORACLE DATABASE DEVELOPER) Narrative Anny Butts MD - 06/01/2024 2:00 PM ORACLE DATABASE DEVELOPER Anny Butts MD 06/01/2024 2:57 PM Colposcopy Performed by: Anny Butts MD Authorized by: Anny Butts MD Consent given by: patient Time out: Immediately prior to procedure a time out was called to verify the correct patient, procedure, equipment, computer support analyst and site/side marked as required. Risks, alternatives, and questions discussed: yes Pre-procedure: Prepped with: acetic acid Indication: Indication: LSIL and HPV Procedure: Procedure: Colposcopy of vagina w/ biopsy [place] speculum was placed in the vagina: yes Post-procedure: Findings: White epithelium Findings comment: Atrophy, hypopigmented areas of lugol's in midline. Not along vaginal sidewall, just at apex Impression: Low grade cervical dysplasia Patient tolerance of procedure: Patient tolerated the procedure well with no immediate complications Anny Butts MD IN CLINIC/BEDSIDE ORDER RAINER Final Result * Dexa Axial Skeleton Bone Density 1 or 2 Site (02/15/2024) Anatomical Region Laterality Modality Body N/A Radiographic Liz ging 02/15/2024 Generic External Data Provider IM DXA PROCEDURE S Final Result * Screening Mammogram W Kike (08/10/2022) Anatomical Region Laterality Modality Breast N/A Mammography Generic External Data Provider IM MAMMO PROCEDU RES Final Result * Hepatitis C antibody (02/18/2021 1:45 PM CDT) Hep C Ab NON-REACTI VE NON-REACT DEBORAH [facility] SIGNAL TO CUT-OFF 0.29 <1.00 [facility] Comment: HCV antibody was non-reactive. There is no laboratory evidence of HCV infection. In most cases, no further action is required. However, if recent HCV exposure is suspected, a test for HCV RNA (test code 01353) is suggested. For additional information please refer to http://education.Host Committee/faq/PCB91c3 (This link is being provided for informational/ educational purposes only.) Blood specimen (specimen) 02/18/2021 1:45 PM CDT 02/19/2021 11:29 AM CDT Narrative [facility] - 02/20/2021 2:24 AM CDT FASTING: UNKNOWN Janet Malloy NP LAB MICROBIOLOGY - GENERAL O RDERABLES Final Result [facility] [address] [place] [address] * Colonoscopy (02/09/2017) Anatomical Region Laterality Modality Other Impressions 02/09/2017 See result in care everywhere from [facility] Historical Provider ENDOSCOPY PROCEDURES Steffi l Result from Last 3 Months or Most Recently Relevant to Health Maintenance Insurance MEDICARE ADVANTAGE [facility] MEDICARE Address: [facility] [address] [place] [address] AETNA MEDICARE MEDICARE [employer] OPEN ACCESS [facility] MEDICARE Advance Directives For more information, please contact: [phone] Documents on File Type Date Recorded Patient Nut Tightener Expl anation ADVANCE DIRECTIVE 04/19/2019 10:51 AM DNR ADVANCE DIRECTIVE 03/26/2019 DNR ADVANCE DIRECTIVE 03/02/2019 Power of Traffic Circuit Engineer-Financial/Medic al * Full Code (Latest Code Status on File) Date Activated Date Inactivated Comments 04/09/2022 12:25 PM 04/09/2022 6:17 PM * Full Code Date Activated Date Inactivated Comments 11/12/2018 12:14 AM 2018 7:44 PM * Full Code Date Activated Date Inactivated Comments 07/13/2018 12:44 PM 07/14/2018 7:09 PM Care Teams Grades 1 6 Tutor Relationship Specialty Start Date End Date Donal Tovar MD PCP - General 09/17/14
--- OUTSIDE RECORDS SUMMARY | 2024-08-18 14:41 | XMS_ITS | Encounter Summary ---
Author Organization [facility] Healthcare Address [address] [place] [address] Care Team Providers Care Director Advertising Name Role Phone Donal Tovar MD Primary Care Provider Reason for Visit * Reason Onset Date Comments Medical Question/Miscellaneous 07/23/2024 Encounter Details Date Type Department Care Team ([facility] Contact Info) Description 07/23/2024 Telephone [facility] Medical Group Primary Care at [address] [place] [address] Donal Tovar MD [address] [place] [address] [address] [place] [address] Medical Question/Miscellaneous Social History Tobacco Use Types Packs/Day Years [...] making you feel afraid or unsafe? Denies 03/28/2023 Comments No Sex and Gender Information Value Date Recorded Sex Assigned at Not on file Legal Sex Female 11:55 PM CAN DRYER Gender Identity Not on file Sexual Orientation Not on file documented as of this encounter Miscellaneous Notes * Telephone Encounter - Juan Carlos Mccabe - 07/24/2024 8:45 AM CDT Call Back Caller???s Concern: Patient returning office's call. Relayed provider's message below. Reached out to backline to try to give further direction to patient regarding the Accountable Care Organization.Gave phone number of [phone] to patient to contact regarding coordinating transportation. Does message need to be routed? No * Telephone Encounter - Vonda Damon MA - 07/24/2024 8:33 AM CDT Tried calling patient and phone was disconnect please inform her of providers message when she returns call. * Telephone Encounter - Donal Tovar MD - 07/23/2024 4:41 PM CDT I am not aware of anything other than maybe calling the accountable care organization because I thought there are some Medicare advantage plans that will help with transportation * Telephone Encounter - Anna Marie Quispe - 07/23/2024 11:48 AM CDT Medical Question/Miscellaneous Caller???s Concern: Patient is having surgery on 08/09 needing help transportation and pre-surgery bathing, and is wanting to know if Vonda knows any avenues as to where she can get assistance? Does message need to be routed? Yes-Action Needed documented in this encounter Plan of Treatment Upcoming Encounters Date Type Department Care Team (Late st Contact Info) Description 08/30/2025 2:00 PM CDT Office Visit [facility] Obstetrics and Gynecology [address] [facility] 13th [place] [address] [place] [address] Anny Butts MD [phone] [place] [address] documented as of this encounter Visit Diagnoses Not on filedocumented in this encounter Care Teams Director Advertising Relationship Specialty Start Date End Date Donal Tovar MD PCP - General 09/17/14 documented as of this encounter
--- OUTSIDE RECORDS SUMMARY | 2024-08-18 14:41 | XMS_ITS | Clinical Summary ---
Author Organization [facility] Address [address] [place] [address] Phone Care Team Providers Care Metal Reed Tuner Name Role Phone Donal Tovar MD Primary Care Provider Allergies Active Allergy Reactions Criticality Noted Date Comments Amitriptyline Hives Medium 01/09/2019 Cephalexin Other (see Comments) 01/09/2019 blood in stools Fructose Other (see Comments) 01/09/2019 fructose malabsorbtion Medications rosuvastatin (CRESTOR) 5 MG Tablet Take 5 mg by mouth daily. Active Multiple Vitamins-Calcium (HM JACQUELYN-MINI MULTI COMPLETE) Tablet Take 0.5 Tabs by mouth daily. Active [facility] OMEGA-3 KRILL OIL 300 MG Capsule Take 1 Cap by mouth daily. Active Magnesium 250 MG Tablet Take 1 Cap by mouth daily. Active Cranberry-Vitami n C-Probiotic (AZO CRANBERRY PO) Take 95 mg by mouth daily. Takes a 1/2 tab Active Active Problems No known active problems Encounters Date Type Department Care Team Description 08/01/2024 Telephone [facility] [address] [place] [address] Tejal Carrillo, PT 07/26/2024 Telephone [facility] [address] [place] [address] Tejal Carrillo, PT No Show 07/19/2024 2:45 PM CDT Physical Therapy [facility] [address] [facility], [address] [address] Ayanna Ruiz APRN Bogowith, Kelly A, PT Lumbar back pain (Primary Dx); Lumbar facet arthropathy; Decreased functional mobility and endurance Discharge Disposition: Discharged to home or Selfcare 07/19/2024 Travel 07/09/2024 Transcribe Orders [facility] [address] [place] [address] Donal Tovar MD Dysphagia, unspecified type (Primary Dx) 06/15/2024 Plan of Care Documentation [facility] [address] [facility], [address] [address] 06/14/2024 2:45 PM LIVESTOCK SPECULATOR Physical Therapy [facility] [address] [facility], [address] [address] Ayanna Ruiz APRN Bogowith, Kelly A, PT Decreased functional mobility and endurance (Primary Dx); Lumbar back pain; Lumbar facet arthropathy Discharge Disposition: Discharged to home or Selfcare 06/14/2024 Travel from Last 3 Months Social History Tobacco Use Types Packs/Day Years Used Date Smoking Tobacco: Never Smokeless Tobacco: Never Tobacco Cessation:Counseling Given: Not Answered Alcohol Use Standard Drinks/Week Comments Never 0 (1 standard drink = 0.6 oz pur e alcohol) Sexually Active Control Partners Comments Never Comments Unknown Sex and Gender Information Value Date Recorded Sex Assigned at Not on file Legal Sex Female 11:39 PM CDT Gender Identity Not on file Sexual Orientation Not on file Last Filed Vital Signs Vital Sign Reading Time Taken Comments Blood Pressure 94/58 05/03/2023 6:03 PM LIVESTOCK SPECULATOR Pulse 106 02/07/2019 3:48 PM CDT Temperature 36.8 C (98.2 F) 05/03/2023 6:03 PM LIVESTOCK SPECULATOR Respiratory Rate 16 05/03/2023 6:03 PM LIVESTOCK SPECULATOR Oxygen Saturation 93% 05/03/2023 6:03 PM LIVESTOCK SPECULATOR Inhaled Oxygen Concentration - - Weight 23.6 kg (52 lb) 01/29/2019 2:18 PM CDT Height 121.9 cm (4') 01/12/2019 3:33 PM CDT Body Mass Index 15.87 01/12/2019 3:33 PM CDT Plan of Treatment Health Maintenance Due Date Last Done Comments Hepatitis C Virus (HCV) Screening 1955 Cologuard 2004 Immunochemical Fecal Occult Blood 2004 Mammogram 01/17/2020 01/16/2019 DEXA Bone Density 08/10/2020 08/10/2018 SARS-COV-2 Immunization ( season) 2024 03/29/2024, 03/24/2023, 02/18/2022, Additional history exists Colonoscopy 02/09/2027 02/09/2017 Colorectal Cancer Screening 02/09/2027 Respiratory Syncytial Virus (RSV) Immunization (Adult) (1 - 1-dose 75+ series) 2029 02/09/2017 DTaP/Tdap/Td Immunization Discontinued 03/09/2013, TdaP Immunization Completed 03/09/2013 Zoster Immunization Completed 06/03/2018, 03/06/2018, 01/22/2016 Pneumococcal Immunization (50+ years) Completed 03/10/2021, 02/28/2020, 12/06/2007 Influenza Immunization Completed , 03/18/2023, 03/17/2022, Additional history exists Hepatitis B Immunization Aged Out No longer eligible based on patient's age to complete this topic Meningococcal Immunization (ACWY) Aged Out No longer eligible based on patient's age to complete this topic Rotavirus Immunization Aged Out No lo nger eligible based on patient's age to complete this topic Insurance MEDICARE C AETNA Advance Directives * Full Code (Latest Code Status on File) Date Activated Date Inactivated Comments 01/17/2019 7:08 AM Care Teams Metal Reed Tuner Relationship Specialty Start Date End Date Donal Tovar MD [address] [place] [address] [address] PCP - General Internal Medicine 01/10/19
--- OUTSIDE RECORDS SUMMARY | 2024-08-18 14:41 | XMS_ITS | Clinical Summary ---
Author Organization [facility] Address [address] [place] [address] Care Team Providers Care Smash Hand Name Role Phone Donal Tovar MD Primary Care Provider [phone] Ubaldo Johnson MD Unavailable [phone] Allergies Active Allergy Reactions Criticality Noted Date Comments Amitriptyline Hives Medium 03/24/2012 Cat Dander Cough 02/28/2013 Cephalexin Other (see comment) Low 03/24/2012 Blood in stool blood in stools blood in stool and coughing up blood blood in stools Spit up blood and blood in the stool Dust Mite Extract Unknown 02/28/2013 Fructose Other (see comment) Low 08/30/2012 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 02/23/20 19 Active polyethylene glycol packet Take 17 g by mouth daily. Dissolve powder in 240 mL water Active Multiple Vitamin (DAILY VITAMIN OR) Take 1 tablet by mouth daily. Active sodium chloride (SODIUM CHLORIDE) 0.65 % Solution 1 spray by Each Nostril route as needed for Dryness. Activ e magnesium oxide 250 MG tablet Take 1 tablet by mouth daily. Active vitamin D3, cholecalcifero l, 5000 UNITS capsule Take 1 capsule by mouth daily. Active acetaminophen 325 MG tablet Take 650 mg by mouth every 6 (six) hours as needed for Pain. Active aspirin 81 MG chewable tablet Chew 81 mg by mouth daily. Active Krill Oil 500 MG Cap Take 1 tablet by mouth daily. Active sucralfate 1 G tablet TAKE ONE TABLET BY MOUTH THREE TIMES A DAY (MADE INTO SLURRY) 11/29/19 21 Active ipratropium (ATROVENT) 0.03 % nasal spray SPRAY 2 SPRAYS 2- 3 TIMES EVERY DAY IN EACH NOSTRIL NEEDED FOR RUNNY NOSE/POST-NASAL DRAINAGE 12/28/19 22 Active fluticasone (FLOVENT HFA) 110 MCG/ACT inhaler Inhale 1 puff into the lungs 2 (two) times daily. Active EPINEPHrine (EPIPEN) 0.3 MG/0.3ML injection INJECT 0.3MG INTRAMUSCULARLY ONCE NEEDED FOR ANAPHYLAXIS 08/29/19 Active diphenhydrAMIN E (BENADRYL) 25 MG capsule Take 25 mg by mouth. Active Active Problems Problem Noted Date Diagnosed Date Coronary artery calcification 05/13/2021 Assessment & Plan (03/29/2022 3:08 PM LEARNING TECHNOLOGIES SPECIALIST): She is not having angina. There was concern for if the need for PCI arise that would not be a stent available given her body habitus, I reassured her that I think she feels a find a way to treat her. Continue aspirin and rosuvastatin. Mixed hyperlipidemia 02/22/2019 Assessment & Plan (03/29/2022 3:09 PM LEARNING TECHNOLOGIES SPECIALIST): I reviewed the lipid panel and Care Everywhere from February 2021 that showed an LDL 68. Continue rosuvastatin 5 mg daily. Family History Medical History Relation Comments ATRIAL FIBRILLATION Father Diabetes Maternal Grandfather SHINGLES Maternal Grandmother LEAKY VALVE Paternal Grandfather LEUKEMIA Paternal Grandmother Relation Status Comments Father (Age 85) Maternal Grandfather Maternal Grandmother (Age 90) Mother (Age 42) Paternal Grandfather Paternal Grandmother Social History Tobacco Use Types Packs/Day Years [...] Sign Reading Time Taken Comments Blood Pressure 112/58 01/17/2023 3:03 PM CDT Pulse 92 01/07/2022 2:49 PM CDT Temperature 36.6 C (97.9 F) 02/05/2021 3:25 PM CDT Respiratory Rate 24 02/05/2021 4:00 PM CDT Oxygen Saturation 98% 02/05/2021 4:00 PM CDT Inhaled Oxygen Concentration - - Weight 25 kg (55 lb 3.2 oz) 01/07/2022 2:49 PM C DT Height 121.9 cm (4') 01/07/2022 2:49 PM CDT Body Mass Index 16.84 01/07/2022 2:49 PM CDT Plan of Treatment Upcoming Encounters Date Type Department Care Team (Late st Contact Info) Description 09/17/2024 2:00 PM CDT Office Visit [facility] [address] [place] [address] Ubaldo Johnson MD [facility] [address] [place] [address] Health Maintenance Due Date Last Done Comments Colorectal Cancer Screening Colonoscopy (10 Years) 1955 Hepatitis C 1972 Mammogram Screening 1994 Annual Medicare Wellness Visit 11/15/2019 DTaP, Tdap and Td Vaccines (2 - Td or Tdap) 03/09/2023 03/09/2013, 09/30/2002 COVID-19 Vaccine (3 - season) 2024 12/22/2020, 11/24/2020 RSV Immunization or 60+ Years (1 - 1-dose 75+ series) 2029 AAA SCREENING Completed 12/21/2016, 09/06, 09/21/2016, Additional history exists Zoster Vaccines Completed 06/03/2018, 02/07, 01/22/2016 Pneumococcal Vaccine: 65+ Years Completed 03/10/2021, 02/28/2020, 12/06/2007 Dexa Scan (General) Completed 02/15/2024, 12/29/2021, 08/10/2018 Meningococcal B Vaccine Aged Out No l onger eligible based on patient's age to complete this topic Meningococcal Vaccine Aged Out No colten bhupendra eligible based on patient's age to complete this topic RSV Immunizations Under 20 Months Aged Out No longer eligible based on patient's age to complete this topic Insurance AETNA Care Teams Smash Hand Relationship Specialty Start Date End Date Donal Tovar MD PCP - General INTERNAL MEDICINE 02/06/19 Ubaldo Johnson MD [address] [place] [address] Sindy Grinder Hand INTERVENTIONAL CARDIOLOGY 02/15/19
--- OUTSIDE RECORDS SUMMARY | 2024-08-18 14:41 | XMS_ITS | Encounter Summary ---
Author Organization [facility] Address [facility] [place] [address] Care Team Providers Care Med Care Manager Name Role Phone Donal Tovar MD Primary Care Provider [phone] Ubaldo Johnson MD Unavailable [phone] Encounter Details Date Type Department Care Team (Late st Contact Info) Description 01/13/2022 Abstract [facility] [address] [id number] Jayme Rizo MA Social History Tobacco Use [...] on file Sexual Orientation Not on file COVID-19 Exposure Response Date Recorded In the last 10 days, have yo u been in contact with someone who was confirmed or suspected to have Coronavirus/COVID-19? No / Unsure 01/07/2022 2:22 PM CDT documented as of this encounter Plan of Treatment Upcoming Encounters Date Type Department Care Team (Late st Contact Info) Description 09/17/2024 2:00 PM CDT Office Visit [facility] [address] [place] [address] Ubaldo Johnson MD [address] [place] [address] documented as of this encounter Procedures Procedure Name Priority Date/Time Associated Diagnosis Comments LIPID PANEL Routine 07/23/2022 LIPID PANEL Routine 06/04/2022 LIPID PANEL Routine 01/29/2022 LIPID PANEL Routine 11/20/2021 documented in this encounter Results * LIPID PANEL (07/23/2022) CHOLESTEROL 134 HDL 65 TRIGLYCERIDES 87 NON HDL CHOLESTEROL 69 LDL (CALCULATED) 52 07/23/2022 us Default History Genericprovider LABORATORY Final Result * LIPID PANEL (06/04/2022) CHOLESTEROL 137 TRIGLYCERIDES 99 HDL 65 LDL (CALCULATED) 52 NON HDL CHOLESTEROL 72 us Default History Genericprovider LABORATORY Final Result * LIPID PANEL (01/29/2022) CHOLESTEROL 119 HDL 54 TRIGLYCERIDES 114 NON HDL CHOLESTEROL 65 LDL (CALCULATED) 42 01/29/2022 us Doc [facility] Abstract LABORATORY Final Result * LIPID PANEL (11/20/2021) CHOLESTEROL 161 HDL 55 TRIGLYCERIDES 113 NON HDL CHOLESTEROL 106 LDL (CALCULATED) 84 11/20/2021 us Doc [facility] Abstract LABORATORY Final Result documented in this encounter Visit Diagnoses Not on filedocumented in this encounter Care Teams Med Care Manager Relationship Specialty Start Date End Date Donal Tovar MD PCP - General INTERNAL MEDICINE 02/06/19 Ubaldo Johnson MD [facility]. [facility] [address] [place] [address] [place] Technical Sales Advisor INTERVENTIONAL CARDIOLOGY 02/15/19 documented as of this encounter
--- OUTSIDE RECORDS SUMMARY | 2024-08-18 14:41 | XMS_ITS | Encounter Summary ---
Author Organization [facility] Address [address] [place] [address] Phone Care Team Providers Care Vehicle Body Maker Name Role Phone Donal Tovar MD Primary Care Provider Encounter Details Date Type Department Care Team (Late st Contact Info) Description 08/06/2024 Telephone [facility] Neurosurgery [facility] Advanced Medicine 6th [place] [address] [place] [phone] Ayanna Ruiz, AKI [address] [place] [address] Social History Tobacco Use Types Packs/Day Years [...] on file Legal Sex Female 11:55 PM CDS SALES ADVISOR Gender Identity Not on file Sexual Orientation Not on file documented as of this encounter Miscellaneous Notes * Telephone Encounter - Ayanna Ruiz NP - 08/14/2024 3:32 PM CDT POC signed and faxed 4-8 * Telephone Encounter - Julian Dacosta - 08/06/2024 11:48 AM CDT PT POC scan in chart for signature documented in this encounter Plan of Treatment Upcoming Encounters Date Type Department Care Team (Late st Contact Info) Description 08/30/2025 2:00 PM CDT Office Visit [facility] Obstetrics and Gynecology [address] [facility] Advanced Medicine 13th [place] [address] [place] [address] Anny Butts MD [address] [phone] [place] [address] documented as of this encounter Visit Diagnoses Not on filedocumented in this encounter Care Teams Vehicle Body Maker Relationship Specialty Start Date End Date Donal Tovar MD PCP - General 09/17/14 documented as of this encounter
--- OUTSIDE RECORDS SUMMARY | 2024-08-18 14:41 | XMS_ITS | Continuity of Care Document ---
Author Name [facility] Address [address] [place] [address] Organization [facility] Care Team Providers Care Ent Nurse Name Role Phone [facility] Unavailable Problems Problem Status Onset Date Problem Type Date of Resolution Comme nts Source Patient examined (context-dependent category) Diagnosis Encounter for other general examination Active Diagnosis Allergies, Adverse Reactions, Alerts Substance Category Reaction Severity Reaction type Status Date Reported Comments Source amitriptyline Assertion Drug allergy Active [facility] cephalexin Assertion Drug allergy Active [facility] Nuts Assertion Food allergy Active [facility] Encounters Location Location Details Encounter Type Encounter Number Reason For Visit Attending Provider ADM Date DC Date Status Source [facility] [id number] LP FU [facility] [id number] YR FU LP Genaro De La Torre er [facility] CR PHYS[facility]IAN OP CLINIC [id number] PELVIC FLOOR RETENTION Hussain Tyson [facility]ancel [facility] MOO MOO NIYAH DIAGNOSTIC TESTING [id number] skeletal dyplasia, back pain Genaro De La Torre er [facility] CR PHYS[facility]IAN OP CLINIC [id number] PELVIC FLOOR PROBLEMS Hussain Tyson Cancel [facility]
--- OUTSIDE RECORDS SUMMARY | 2024-08-18 14:41 | XMS_ITS | Encounter Summary ---
Author Organization [facility] Address [address] [place] [address] Phone Care Team Providers Care Top Lift Scourer Name Role Phone Donal Tovar MD Primary Care Provider Jacinta Bull MD Unavailable [phone] Encounter Details Date Type Department Care Team (Late st Contact Info) Description 06/09/2015 Orders Only [facility] ProviderJohnna MD [address] [place] [address] Social History Tobacco Use Types Packs/Day Years Used Date Smoking Tobacco: Never Alcohol Use Standard Drinks/Week Comments Yes 0 (1 standard drink = 0.6 oz pur e alcohol) Comments Unknown Sex and Gender Information Value Date Recorded Sex Assigned at Not on file Legal Sex Female 11:55 PM SUPPORT SERVICE TECH Gender Identity Not on file Sexual Orientation Not on file documented as of this encounter Plan of Treatment Upcoming Encounters Date Type Department Care Team (Late st Contact Info) Description 08/30/2025 2:00 PM CDT Office Visit [facility] Obstetrics and Gynecology [address] [facility] Advanced Medicine 13th [place] [address] [place] [address] Anny Butts MD [address] [phone] [place] [address] documented as of this encounter Procedures Procedure Name Priority Date/Time Associated Diagnosis Comments GENERAL RADIOLOGY REPORT 06/09/2015 GENERAL RADIOLOGY REPORT 06/09/2015 documented in this encounter Results * GENERAL RADIOLOGY REPORT (06/09/2015) Anatomical Region Laterality Modality Radiographic Liz ging Narrative 06/09/2015 Ordered by an unspecified provider. us Historical Provider IMG XR PROCEDURES Final R esult * GENERAL RADIOLOGY REPORT (06/09/2015) Anatomical Region Laterality Modality Radiographic Liz ging Narrative 06/09/2015 Ordered by an unspecified provider. us Historical Provider IMG XR PROCEDURES Final R esult documented in this encounter Visit Diagnoses Not on filedocumented in this encounter Care Teams Top Lift Scourer Relationship Specialty Start Date End Date Donal Tovar MD PCP - General 09/17/14 Jacinta Bull MD [address] [phone] [place] [address] Referring Physician Obstetrics and Gynecology 06/30/18 03/01/19 documented as of this encounter
--- OUTSIDE RECORDS SUMMARY | 2024-08-18 14:41 | XMS_ITS | Encounter Summary ---
Author Organization [facility] Address [address] [place] [address] Care Team Providers Care Contact Center Specialist Name Role Phone Donal Tovar MD Primary Care Provider Jacinta Bull MD Unavailable [phone] Encounter Details Date Type Department Care Team (Late Contact Info) Description 07/14/2018 Documentation [facility] Case Management 1 [place] [address] Gabriela Campbell RN Social History Tobacco Use Types Packs/Day Years Used Date Smoking Tobacco: Never Smokeless Tobacco: Never Alcohol Use Standard Drinks/Week Comments No 0 (1 standard drink = 0.6 oz pur e alcohol) Comments No Sex and Gender Information Value Date Recorded Sex Assigned at Not on file Legal Sex Female 11:55 PM EVENT MANAGER Gender Identity Not on file Sexual Orientation Not on file documented as of this encounter Plan of Treatment Upcoming Encounters Date Type Department Care Team (Late Contact Info) Description 08/30/2025 2:00 PM CDT Office Visit [facility] Obstetrics and Gynecology [address] [facility] Advanced Medicine 13th [place] [address] [place] [address] Anny Butts MD [address] [phone] [place] [address] documented as of this encounter Visit Diagnoses Not on filedocumented in this encounter Care Teams Contact Center Specialist Relationship Specialty Start Date End Date Donal Tovar MD PCP - General 09/17/14 Jacinta Bull MD [address] [phone] [place] [address] Referring Physician Obstetrics and Gynecology 06/30/18 03/01/19 documented as of this encounter
--- OUTSIDE RECORDS SUMMARY | 2024-08-18 14:41 | XMS_ITS | Referral Summary ---
Author Organization [facility] Address 1 [place] [address] Care Team Providers Care Manager Human Resources Name Role Phone Donal Tovar MD Primary Care Provider Encounters Date Type Department Care Team Description 08/09/2024 2:30 PM CDT - 08/09/2024 4:05 PM CDT Surgery [facility] Operating Room 1 [place] [phone] Anny Butts MD LASER CO2 of the vagina 08/09/2024 3:35 PM CDT Anesthesia Event [facility] Operating Room 1 [place] [phone] Jonatan Silverman MD Richardson, Genea Michelle, NP 08/09/2024 12:26 PM CDT - 08/09/2024 6:03 PM CDT Hospital Encounter [facility] Operating Room 1 [place] [phone] Anny Butts MD 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) Discharge Disposition: Discharge to home or self care 08/08/2024 Telephone [facility] Obstetrics and Gynecology [facility] 13th [place] [address] [place] [phone] Destinee Alfred Surgery Confirmation 08/07/2024 3:00 PM CDT Clinical Support [facility] Medical Group Primary Care at [place] [address] [facility] [address] [place] [address] Age-related osteoporosis without current pathological fracture (Primary Dx) 08/06/2024 Telephone [facility] Neurosurgery [address] [facility] 6th [place] [address] [place] [address] Ayanna Ruiz NP 08/03/2024 3:00 PM CDT [facility] [address] [facility] Medical Office Building [address] [place] [address] Jillian Garvin MD Other chronic sinusitis (Primary Dx) 07/31/2024 Telephone [facility] Obstetrics and Gynecology [address] [facility] 13th [place] [address] [place] [address] Leanna Richardson RN 07/23/2024 Telephone [facility] Medical Group Primary Care at [address] [place] [phone] Donal Tovar MD Medical Question/Miscellaneou s 07/05/2024 Orders Only [facility] Medical Group Primary Care at [address] [place] [address] Donal Tovar MD Dysphagia, unspecified type (Primary Dx) 07/03/2024 Telephone [facility] Medical Group Primary Care at [address] [place] [address] Donal Tovar MD 07/03/2024 3:00 PM EQUESTRIAN TRAINER Clinical Support [facility] Medical Group Primary Care at [address] [place] [address] Age-related osteoporosis without current pathological fracture (Primary Dx) 07/03/2024 Hospital Encounter [facility] 1 [place] [address] Rosaura Gates MD 06/25/2024 Telephone [facility] Medical Group Primary Care at [address] [place] [address] Donal Tovar MD Medical Question/Miscellaneou s 06/19/2024 Telephone [facility] Medical Group Gastroenterology at [address] [place] [address] Mari Saha 06/15/2024 Telephone [facility] Primary Care at [address] [place] [phone] Donal Tovar MD Test Results; Call Back 06/08/2024 Telephone [facility] Obstetrics and Gynecology [address] [facility] Advanced Medicine 13th [place] [phone] Erika Meza RN 06/08/2024 Telephone [facility] Obstetrics and Gynecology [address] [facility] 13th [place] [address] Leanna Richardson RN 06/01/2024 5:27 PM EQUESTRIAN TRAINER - 06/01/2024 11:59 PM EQUESTRIAN TRAINER Hospital Encounter [address] [address] Discharge Disposition: Discharge to home or self care 06/01/2024 2:00 PM EQUESTRIAN TRAINER Office Visit [facility] Obstetrics and Gynecology [address] [facility] 13th [place] [address] Anny Butts MD 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 (Primary Dx) 05/24/2024 Telephone [facility] Primary Care at [address] [phone] Donal Tovar MD 05/23/2024 3:00 PM EQUESTRIAN TRAINER Clinical Support [facility] Medical [facility] Primary Care at [address] [phone] Age-related osteoporosis without current pathological fracture (Primary Dx) from Last 3 Months Allergies Active Allergy Reactions Criticality Noted Date [...] each by mouth every morning Med Name: BENO-LINDA Active cranberry fruit extract (cranberry extract) 250 [...] (03/23/2022): Added automatically from request for surgery [id number] Coronary artery calcification 05/13/2021 Welcome to Medicare [...] a living will and durable power of monkey trainer in place. In regard to social hx- [...] shingles/Shingrix vaccination. Last colonoscopy was completed around 2014- reordered today and requesting prior records from [facility] Last mammogram was negative in 2018- mammogram reordered today in office Last DEXA [...] she Cnt. With her current Lovaza and [place] 3 along with aspirin, heart healthy diet [...] Zoledronic acid 2.5 mg doses given at [place], [place] - March 2009, July 2011, September [...] (08/11/2016): ALLERGY, UNSPECIFIED Abdominal pain 03/09/2010 02/22/2019 Immunizations Immunization Administration Dates Next Due Influenza, [...] 03/09/2013 ZOSTER LIVE 01/22/2016 ZOSTER Recombinant 06/03/2018,03/06/2018 Social History Tobacco Use Types Packs/Day Years [...] on file Legal Sex Female 11:55 PM EQUESTRIAN TRAINER Gender Identity Not on file Sexual Orientation [...] Description 08/30/2025 2:00 PM CDT Office Visit [facility] Obstetrics and Gynecology [address] [facility] Advanced Medicine 13th [place] [address] [place] [address] Anny Butts MD [address] [phone] [place] [address] Procedures Procedure Name Priority Date/Time Associated Diagnosis Comments MT AN PROCEDURE PLACEHOLDER Routine 08/09/2024 3:53 PM CDT MT AN ELECTIVE ENDOTRACHEAL AIRWAY Routine 08/09/2024 3:53 PM CDT COLPOSCOPY 08/09/2024 3:37 PM CDT 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) Case Notes 4/2- Changed line up per Destinee via phone call (EF) LASER CO2 08/09/2024 3:37 PM CDT 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) Case Notes /- Changed line up per Destinee via phone call (EF) STOOL DNA COLOGUARD Routine 06/08/2024 2:00 PM EQUESTRIAN TRAINER Screen for colon cancer SURGICAL PATHOLOGY Routine 06/01/2024 2: 16 PM EQUESTRIAN TRAINER 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 MT COLPOSCOPY ENTIRE VAGINA W/VAGINA/CERVIX BX Routine 06/01/2024 2:00 PM EQUESTRIAN TRAINER Human papillomavirus (HPV) type 16 DNA detected [...] Recently Relevant to Health Maintenance Results * MT AN ELECTIVE ENDOTRACHEAL AIRWAY, MT AN PROCEDURE PLACEHOLDER (08/09/2024 3:53 PM CDT) Narrative Jennifer Santana CRNA - 08/09/2024 3:53 PM CDT Jennifer Santana CRNA 08/09/2024 3:54 PM Airway Patient location: OR Urgency: elective Indications for airway management: anesthesia Difficult airway: no Staff: Supervising provider: Jonatan Silverman MD Placed by: RELAY ENGINEER: Jennifer Santana CRNA Emergent airway documentation: Risks [...] Stool DNA - Cologuard (06/08/2024 2:00 PM EQUESTRIAN TRAINER) Stool DNA - Cologuard Negative Negative [facility] (CLIA #:[id number]) Comment: NEGATIVE TEST RESULT. A negative Cologuard [...] screened with both Cologuard and colonoscopy. (Maame Encinas et al, N Engl J Med 2014;370(14):4948-8374) The normal value (reference range) for this assay is negative. COLOGUARD RE-SCREENING RECOMMENDATION: Periodic colorectal cancer screening is an important part of preventive healthcare for asymptomatic individuals at average risk for colorectal cancer. Following a negative Cologuard result, the [place] Cancer Society and U.S. Multi-Society Task Force screening guidelines recommend a Cologuard re-screening interval of 3 years. References: [place] [employer] Guideline for Colorectal Cancer Screening: https://www.cancer.org/cancer/crqvr-tzyfuq-abbwuo/dkvbvobus-kwisjudsw-albtksj/ac s-rec ommendations.html.; Wilfrido MARIE, Gracie JEWELL, Frances MANLEY, Colorectal Cancer Screening: Recommendations for Physicians and Patients from the U.S. Multi-Society Task Force on Colorectal Cancer Screening , Am J Gastroenterology 2017; 112:0071-5223. TEST DESCRIPTION: Composite algorithmic analysis of stool [...] screened with both Cologuard and colonoscopy. (Maame Owen al, N Engl J Med 2014;370(14):9032-2468.) Cologuard may produce a false negative or false positive result (no colorectal cancer or precancerous polyp present at colonoscopy follow up). A negative Cologuard test result does not guarantee the absence of CRC or advanced adenoma (pre-cancer). The current Cologuard screening interval is every 3 years. ([place] Cancer Society and U.S. Multi-Society Task Force). Cologuard performance data in a 10,000 patient pivotal study using colonoscopy as the reference method can be accessed at the following location: www.Turbogen/results. Additional description of the Cologuard test process, warnings and precautions can be found at www.Virtual Gaming Worldsrd.com. Stool 06/08/2024 2:00 PM EQUESTRIAN TRAINER 06/09/2024 9:17 AM EQUESTRIAN TRAINER us Donal Tovar MD LAB BODY FLUIDS AND STO OLS ORDERABLES Final Result [facility] (CLIA #:[id number]) [place] [address] [place] [address] * Surgical pathology (06/01/2024 2:16 PM EQUESTRIAN TRAINER) Tissue specimen (specimen) (Vagina, Biopsy) 06/01/2024 2:16 PM EQUESTRIAN TRAINER 06/01/2024 4:02 PM EQUESTRIAN TRAINER Narrative PATHOLOGY [facility] - 06/05/2024 4:37 PM EQUESTRIAN TRAINER EPIC results best viewed via link to PDF [facility] [place] [address] Note to Patients: This report may contain [...] Gender: F : 1955 (Age: 68) Address: [address] [place], [place] [address] Hospital #: [id number] Taken:06/01/2024 Received:06/01/2024 Reported: 06/05/2024 Patient Type: WUPT-EPIC Service: UNKNOWN Location: OB ONC CAM 1 Physician(s): Anny Butts M.D. Diagnosis: Vagina, cuff, biopsy - High-grade squamous intraepithelial lesion (HSIL, VAIN 2) - See comment udch/06/03/2024 16:49 By this signature, I attest that [...] Surgical Pathology and Flow Cytometry Departments at [facility] as part of an ongoing quality assurance supervisor body program and in compliance with federally mandated [...] Surgical Pathology and Flow Cytometry Departments of [facility]. It has not been cleared or approved by the U. S. Food and Drug Administration. IMAGES AND SCANNED DOCUMENTS, IF INCLUDED, ONLY VIEWABLE IN PDF VERSION OF REPORT Anny Butts MD LAB PATHOLOGY ORDERABLE S Final Result PATHOLOGY [facility] 3rd Floor [place], [place] [phone] * MT COLPOSCOPY ENTIRE VAGINA W/VAGINA/CERVIX BX (06/01/2024 2:00 PM EQUESTRIAN TRAINER) Narrative Anny Butts MD - 06/01/2024 2:00 PM EQUESTRIAN TRAINER Anny Butts MD 06/01/2024 2:57 PM Colposcopy Performed by: Anny Butts MD Authorized by: Anny Butts MD Consent given by: patient Time out: Immediately prior to procedure a time out was called to verify the correct patient, procedure, equipment, bioinformatics support specialist and site/side marked as required. Risks, alternatives, and questions discussed: yes Pre-procedure: Prepped with: acetic acid Indication: Indication: LSIL and HPV Procedure: Procedure: Colposcopy of vagina w/ biopsy [place] speculum was placed in the vagina: yes [...] Liz ging 02/15/2024 Generic External Data Provider IMG DXA PROCEDURE S Final Result * Screening Mammogram W Kike (08/10/2022) Anatomical Region Laterality Modality Breast N/A Mammography Generic External Data Provider IMG MAMMO PROCEDU RES Final Result * Hepatitis [...] a test for HCV RNA (test code 94104) is suggested. For additional information please refer to http://education.AccuRev/faq/KAE46q0 (This link is being provided for informational/ educational purposes only.) Blood specimen (specimen) 02/18/2021 1:45 PM CDT 02/19/2021 11:29 AM CDT Narrative [facility] - 02/20/2021 2:24 AM CDT FASTING: UNKNOWN Janet Malloy FEEDER ASSOCIATE LAB MICROBIOLOGY - GENERAL O RDERABLES Final Result [facility] [address] [place] [address] * Colonoscopy (02/09/2017) Anatomical Region Laterality Modality Other Impressions 02/09/2017 See result in care everywhere from [facility] Historical Provider ENDOSCOPY PROCEDURES Steffi l Result from Last 3 Months or Most Recently Relevant to Health Maintenance Insurance [address] [place], [place] [address] MEDICARE ADVANTAGE [employer] MEDICARE T MEDICARE [employer] OPEN ACCESS [address] [place] [address] [employer] MEDICARE Advance Directives For more information, please contact: [phone] Documents on File Type Date Recorded Patient Engineering Technician Expl anation ADVANCE DIRECTIVE 04/19/2019 10:51 AM DNR ADVANCE DIRECTIVE 03/26/2019 DNR ADVANCE DIRECTIVE 03/02/2019 Power of Coating And Embossing Unit Operator-Financial/Medic al * Full Code (Latest Code Status on File) Date Activated Date Inactivated Comments 04/09/2022 12:25 PM 04/09/2022 6:17 PM * Full Code Date Activated Date Inactivated Comments 11/12/2018 12:14 AM 2018 7:44 PM * Full Code Date Activated Date Inactivated Comments 07/13/2018 12:44 PM 07/14/2018 7:09 PM Care Teams Manager Human Resources Relationship Specialty Start Date End Date Donal Tovar MD PCP - General 09/17/14
--- OUTSIDE RECORDS SUMMARY | 2024-08-18 14:41 | XMS_ITS | Encounter Summary ---
Author Organization [facility] Address [address] [place] [address] Phone Care Team Providers Care Cleat Layer Name Role Phone Donal Tovar MD Primary Care Provider Reason for Referral * PT/OT/ST (Routine) - Open Specialty Diagnoses / Procedures Referred By Contac t Referred To Contact Speech Therapy Diagnoses Dysphagia, unspecified type Donal Tovar MD [address] [facility] [address] [place] [address] Phone: tel: fax: [facility] [address] [address] Phone: tel: fax: Referral ID Status Reason Start Date Expiration Date Visits Re quested Visits Authorized [id number] Open 07/09/2024 50 50 Scheduling Instructions I CUTTER Encounter Details Date Type Department Care Team (Late st Contact Info) Description 07/09/2024 Transcribe Orders [facility] [address] [place] [address] Donal Tovar MD [address] [facility] [address] [place] [address] Dysphagia, unspecified type (Primary Dx) Social History Tobacco Use Types Packs/Day Years Used Date Smoking Tobacco: Never Smokeless Tobacco: Never Alcohol Use Standard Drinks/Week Comments Never 0 (1 standard drink = 0.6 oz pur e alcohol) Sexually Active Control Partners Comments Never Comments Unknown Sex and Gender Information Value Date Recorded Sex Assigned at Not on file Legal Sex Female 11:39 PM CDT Gender Identity Not on file Sexual Orientation Not on file documented as of this encounter Plan of Treatment Scheduled Referrals Name Type Priority Associated Diagnoses Orde r Schedule SPEECH THERAPY REFERRAL Outpatient Referral Routine Dysphagia, unspecified type Expected: 07/09/2024, Expires: 07/09/2025 documented as of this encounter Visit Diagnoses Diagnosis Dysphagia, unspecified type- Primary documented in this encounter Care Teams Cleat Layer Relationship Specialty Start Date End Date Donal Tovar MD [address] [place] [address] [address] [place] [address] PCP - General Internal Medicine 01/10/19 documented as of this encounter
--- OUTSIDE RECORDS SUMMARY | 2024-08-18 14:41 | XMS_ITS | Clinical Summary ---
Author Organization [facility] Code On Network Coding Address [address] [address] Care Team Providers Care Import Export Coordinator Name Role Phone Donal Tovar MD Primary Care Provider Source Comments [facility],non-owned Affiliates and Associated Physician Practices is amultiple site organization consisting of ambulatory clinics and hospital sitesin [place], [place], [place] and [place]. This disclosure is being madepursuant to the Care Everywhere program and may not contain all information available regarding this patient. Last updated 18.[facility] Code On Network Coding Allergies Active Allergy Reactions Criticality Noted Date Comments Amitriptyline Urticaria Medium 08/06/2013 Cephalexin Other Low 08/06/2013 Blood in stool Medications * Be aware that medications may not be up to date on this document. Alwaysverify current medications with the patient. calcium citrate-vitamin D (CITRACAL PLUS D) 315-200 MG-UNIT tablet Take 200 mg by mouth Active Magnesium Oxide 250 MG Take 1 Tab by mouth Active Multiple Vitamin (DAILY VITES) TABS Take 1 Tab by mouth Active [place]-3 Fatty Acids (FISH OIL) 1000 MG capsule Take 1,000 mg by mouth Active polyethylene glycol 3350 (MIRALAX) packet Take 17 g by mouth 7 Active aspirin (ASPIRIN) 81 MG chew tablet Take 81 mg by mouth once daily 3 Active fluticasone propionate (FLONASE) 50 MCG/ACT nasal spray spray 1 - 2 spray by Intranasal route every day in each nostril 6 Active sertraline (ZOLOFT) 50 MG tablet 50 mg 5 Active tamsulosin (FLOMAX) 0.4 MG capsule 0.4 mg 8 Active Active Problems Problem Noted Date Diagnosed Date Encounter for screening colonoscopy 11/11/2016 Diffuse esophageal spasm 04/29/2014 Fructose intolerance 04/08/2014 Osteoporosis 09/22/2013 Overview (02/09/2017): Overview: OSTEOPOROSIS NEC Incontinence of bowel 08/06/2013 Low back pain 01/06/2012 Overview (02/09/2017): Overview: Lumbago Resolved Problems Problem Noted Date Diagnosed Date Resolved Date Constipation 08/06/2013 03/09/2017 Family History Medical History Relation Name Comments Cancer - Colon Father Afib Alcohol abuse Mother Relation Name Status Comments Father Mother Social History Tobacco Use Types Packs/Day Years Used Date Smoking Tobacco: Never Smokeless Tobacco: Never Alcohol Use Standard Drinks/Week Comments No 0 (1 standard drink = 0.6 oz pur e alcohol) never used Comments Unknown Sex and Gender Information Value Date Recorded Sex Assigned at Not on file Legal 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 Gender Identity Not on file Sexual Orientation Not on file 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 Not on file Not on file Last Filed Vital Signs Vital Sign Reading Time Taken Comments Blood Pressure 139/67 02/03/2021 2:56 PM CDT Pulse 99 02/03/2021 2:56 PM CDT Temperature 37.4 C (99.3 F) 02/09/2017 12:25 PM CDT Respiratory Rate 19 02/09/2017 2:00 PM CDT Oxygen Saturation 99% 02/09/2017 1:35 PM CDT Inhaled Oxygen Concentration - - Weight 25.9 kg (57 lb) 02/03/2021 2:56 PM CDT Height 121.9 cm (4') 02/03/2021 2:56 PM CDT Body Mass Index 17.39 02/03/2021 2:56 PM CDT Plan of Treatment Health Maintenance Due Date Last Done Comments BONE DENSITY TESTING 1955 COLOGUARD (AGES 45-75) - COLON CA SCREENING 1955 CT COLONOGRAPHY - COLON CA SCREENING 1955 FIT - COLON CA SCREENING 1955 FLEX SIG - COLON CA SCREENING 1955 MAMMOGRAM 1955 HEPATITIS C SCREENING 11/09/1972 DTAP/TDAP/TD VACCINES (1 - Tdap) 1973 PNEUMOCOCCAL VACCINE 50+ (1 of 1 - PCV) 2004 ZOSTER VACCINE (1 of 2) 2004 COVID-19 VACCINE (1 - season) 2024 DEPRESSION SCREENING 05/09/2024 MEDICARE AWV CALENDAR YEAR 2024 INFLUENZA VACCINE (Season Ended) 2025 03/10/2021, 02/28/2020, 02/22/2019, Additional history exists COLON MONITORING 02/09/2027 02/09/2017, 02/09/2017 COLONOSCOPY - COLON CA SCREENING 02/09/2027 02/09/2017, 02/09/2017 Colorectal Cancer Screening 02/09/2027 LIPID TESTING 07/24/2027 07/23/2022, 06/04/2022 Respiratory Syncytial Virus (RSV) Vaccine Pt: or over 60 yrs (1 - 1-dose 75+ series) 2029 HEPATITIS B VACCINE Aged Out No longe r eligible based on patient's age to complete this topic HIB VACCINE Aged Out No longer eligi ble based on patient's age to complete this topic HPV VACCINE Aged Out No longer eligi ble based on patient's age to complete this topic MENINGOCOCCAL (Group B) VACCINE SHARED DECISION-MAKING Aged Out No longer eligible based on patient's age to complete this topic MENINGOCOCCAL GROUPS A/C/Y/W VACCINE Aged Out No longer eligible based on patient's age to complete this topic Procedures Procedure Name Priority Date/Time Associated Diagnosis Comments ENDOSCOPY, COLON, SCREENING Routine 02/09/2017 12:16 PM CDT from Last 3 Months or Most Recently Relevant to Health Maintenance Results * ENDOSCOPY, COLON, SCREENING (02/09/2017 12:16 PM CDT) Report Endoscopy POC _ Patient Name: Ivan Rodríguez Procedure Date: 02/09/2017 12:16 PM Date of : 1955 Admit Type: Outpatient Age: 61 Gender: Female Attending MD: Naomy Powell MD _ Procedure: Colonoscopy Indications: Screening patient at increased risk: Family history of 1st-degree relative with colorectal cancer at age 60 years (or older) Providers: Naomy Powell MD (Doctor), Aidan Bey MD (Fellow), Cathryn Lowe, Piano And Organ Refinisher Referring MD: Donal Tovar MD (Referring MD) Medicines: See the other procedure note for documentation of the administered medications. No additional medications given for colonoscopy Complications: No immediate complications. _ Procedure: Pre-Anesthesia Assessment: - Prior to the procedure, a History and Physical was performed, and patient medications and allergies were reviewed. The patient's tolerance of previous anesthesia was also reviewed. The risks and benefits of the procedure and the sedation options and risks were discussed with the patient. All questions were answered, and informed consent was obtained. Prior Anticoagulants: The patient has taken no previous anticoagulant or antiplatelet agents. ASA Grade Assessment: II - A patient with mild systemic disease. After reviewing the risks and benefits, the patient was deemed in satisfactory condition to undergo the procedure. After I obtained informed consent, the scope was passed under direct vision. Throughout the procedure, the patient's blood pressure, pulse, and oxygen saturations were monitored continuously. The Colonoscope was introduced through the anus and advanced to the cecum, identified by appendiceal orifice and ileocecal valve. The colonoscopy was performed without difficulty. The patient tolerated the procedure well. The quality of the bowel preparation was good. Impression: - The entire examined colon is normal on direct and retroflexion views. - No specimens collected. Findings: The perianal and digital rectal examinations were normal. The entire examined colon appeared normal on direct and retroflexion views. _ Recommendation: - Patient has a contact number available for emergencies. The signs and symptoms of potential delayed complications were discussed with the patient. Return to normal activities tomorrow. Written discharge instructions were provided to the patient. - Resume previous diet. - Continue present medications. - Repeat colonoscopy in 5-10 years for surveillance. - Return to referring physician. Procedure Code(s): --- Professional --- G0105, Colorectal cancer screening; colonoscopy on individual at high risk --- Technical --- G0105, Colorectal cancer screening; colonoscopy on individual at high risk Diagnosis Code(s): --- Professional --- Z80.0, Family history of malignant neoplasm of digestive organs --- Technical --- Z80.0, Family history of malignant neoplasm of digestive organs CPT copyright 2015 [employer]. All rights reserved. The codes documented in this report are preliminary and upon instructor of sociology review may be revised to meet current compliance requirements. Attending Participation: I personally performed the entire procedure. Naomy Powell MD 02/09/2017 1:17:26 PM Number of Addenda: 0 Note Initiated On: 02/09/2017 12:16 PM [facility] ENDOSCOPY 02/09/2017 12:1 6 PM CDT Naomy Powell MD GI PROCEDURE ORDERABLES Ed ited Result - Final HC ENDOSCOPY from Last 3 Months or Most Recently Relevant to Health Maintenance Insurance [facility] Address: [facility] [id number] [place] [address] [facility] MANAGED MEDICARE ADV [id number] MANAGED MEDICARE ADV Care Teams Import Export Coordinator Relationship Specialty Start Date End Date Donal Tovar MD [address] [address] PCP - General 10/12/11
--- OUTSIDE RECORDS SUMMARY | 2024-08-18 14:42 | XMS_ITS ---
Author Organization [facility] Address [address] [place] [address] Care Team Providers Care City Designer Name Role Phone Donal Tovar Primary Care Provider UnavailYaniv Meza Unavailable [phone] Don Mayen Unavailable [phone] REASON FOR VISIT SCIT - Traditional Schedule Allergy immunotherapy Medications Medication SIG (Take, Route, Frequency, Duration) Notes Start Date End Date Status Rosuvastatin Calcium 5 MG 1 tab(s) orally once a day for 30 day(s) Active Azelastine HCl 137 MCG/SPRAY 1 puff in each nostril Nasally Twice a day for 30 days 01/12/2024 Active FLOVENT Not-Taking Flovent HFA *Please review and pick correct strength-formula tion from [employer] options. If intended option is not shown, discontinue and re-order from Quick Search* Not-Taking IPRATROPIUM BROMIDE HYDROUS, 1 G *Please review for potential replacement for e-prescription and drug interaction check* Not-Taking Omeprazole 20 MG 1 cap(s) orally once a day for 30 day(s) Active Cetirizine HCl 10 MG 1 tab(s) orally once a day for 30 days Active Fluticasone Propionate 50 MCG/ACT 2 spray(s) in each nostril BID for 30 day(s) Active SIT (CLUSTER) VARIABLE PER SCHEDULE SC PER SCHEDULE for TO BE DETERMINED *Please review for potential replacement for e-prescription and drug interaction check* 04/20/2022 Active Flovent HFA CFC FREE 110 MCG/INH 2 PUFF(S) INHALED 2 TIMES A DAY for 30 DAYS *Please review and pick correct strength-formula tion from [employer] options. If intended option is not shown, discontinue and re-order from Quick Search* Active FLUTICASONE NASAL 50 mcg/inh 2 spray(s) in each nostril BID for 30 day(s) Active EpiPen 2-Matthew 0.3 mg as directed intramuscularly once for 30 days Active NASAL WASHES N/A as directed intranasally as needed for 30 Active Ipratropium [place] 0.06 % 2 sprays in each nostril Nasally Four times a day for 30 days Active SIT (Traditional) variable - see record per schedule subcutaneous per schedule for 999 days Active FLOVENT HFA CFC free 110 mcg/inh 2 puff(s) inhaled 2 times a day for 30 days Active OMEPRAZOLE 20 mg 1 cap(s) orally once a day for 30 day(s) Active CETIRIZINE 10 mg 1 tab(s) orally once a day for 30 days Active ALBUTEROL (EQV-PROAIR HFA) 90 mcg/inh 2 puff(s) inhaled every 6 hours for 30 day(s) Active AEROCHAMBER MDI SPACER - MOUTHPIECE (ADULT) N/A As directed PO Per asthma action plan for 30 day(s) Active Encounters Encounter Location Date Provider Diagnosis [facility] [address] [place] [address] 08/02/2024 Don Mayen Allergic rhinitis du e to pollen J30.1 ; Allergic rhinitis due to animal (cat) (dog) hair and dander J30.81 ; Other allergic rhinitis J30.89 and Other chronic allergic conjunctivitis H10.45 Assessments Encounter Date Diagnosis (ICD Code) Assessment Notes Treatment Notes Treatment Clinical Notes Section Notes 08/02/2024 Allergic rhinitis due to pollen (ICD-10 - J30.1) 08/02/2024 Allergic rhinitis due to animal (cat) (dog) hair and dander (ICD-10 - J30.81) 08/02/2024 Other allergic rhinitis (ICD-10 - J30.89) 08/02/2024 Other chronic allergic conjunctivitis (ICD-10 - H10.45) 08/02/2024 Other Plan Of Treatment Next Appt Details Follow Up: 1 Week, Reason: Progress Notes * Nayana RODRÍGUEZaDOB:01/1956 (68 yo F)Acc No.[id number]:08/02/2024 SCIT-Aeroallergen Patient: Stephanie COLE Provider: Zoe Mayen MD :1955 A ge:68 Y S ex:Female Date:08/02/2024 Address:[address] [place] [address], [address] Pcp:Donal Tovar Subjective: * Chief Complaints: * S CIT - Traditional Schedule Allergy immunotherapy * HPI: * Introduction: The patient is here for scheduled specific allergen immunotherapy. Please see the attached specialty form regarding the specifics of the administration of these vaccines. As per our protocol, they must undergo a screening health questionnaire (medication changes, reaction(s) to last immunotherapy dose(s), current health status, ACT (if appropriate), self-injectable epinephrine on patient(?) and peak flow (if appropriate)). Also, the patient must wait in our office for 30 minutes after receiving immunotherapy. Furthermore, every patient must have an epinephrine pen (self-injectable) with them at the time of administration--and carry if for the following 1.5 hours after they leave our office. The patient must also have taken their antihistamine the day of the injection, preferably 2 hours prior. The consent form for SCIT (subcutaneous immunotherapy) is on file. * ROS: A LLERGY: Positive p er the HPI and history, otherwise unremarkable.? S PECIAL SENSES: Positve for n one. C ONSTITUTIONAL: Positive for n one. E NT: Positive p er the HPI and history, otherwise unremarkable.? R ESPIRATORY: Positive for p er the HPI and history, otherwise unremarkable. O PHTHALMOLOGY: Positive for p er the HPI and history, otherwise unremarkable. E NDOCRINOLOGY: Positive for n one. C ARDIOLOGY: Positive for n one. G ASTROENTEROLOGY: Positive for n one. U ROLOGY: Positive for n one. D ERMATOLOGY: Positive for n one. N EUROLOGY: Positive for n one. H EMATOLOGY/LYMPH: Positive for n one. M USCULOSKELETAL: Positive for n one. P SYCHOLOGY: Positive for n one. A ll other review of systems per the HPI and history, othwise unremarkable. * Medical History: * Surgical History: * Hospitalization/Major Diagno stic Procedure: * Medications: T akingALBUTEROL (EQV-PROAIR HFA) 90 mcg/inh aerosol 2 puff(s) [...] 2 spray(s) in each nostril BID EpiPen 2-Matthew 0.3 mg kit as directed intramuscularly once NASAL WASHES N/A 1 quart of sterilized tap water or distilled water, 1 tsp NaCl, 1 pinch of baking soda as directed intranasally as needed Ipratropium [place] 0.06 % Solution 2 sprays in each nostril Nasally Four times a day SIT (Traditional) variable - see record variable - see record per schedule subcutaneous per schedule EpiPen 2-Matthew 0.3 mg kit as directed intramuscularly once Flovent HFA CFC FREE 110 MCG/INH AEROSOL 2 PUFF(S) INHALED 2 TIMES A DAY , Notes to Pharmacist: *Please review and pick correct strength-formulation from [employer] options. If intended option is not shown, [...] spray(s) in each nostril BID Taking EpiPen 2-Matthew 0.3 mg kit as directed intramuscularly once Taking NASAL WASHES N/A 1 quart of sterilized tap water or distilled water, 1 tsp NaCl, 1 pinch of baking soda as directed intranasally as needed Taking Ipratropium [place] 0.06 % Solution 2 sprays in each nostril Nasally Four times a day Taking SIT (Traditional) variable - see record variable - see record per schedule subcutaneous per schedule Taking EpiPen 2-Matthew 0.3 mg kit as directed intramuscularly once Taking Flovent HFA CFC FREE 110 MCG/INH AEROSOL 2 PUFF(S) INHALED 2 TIMES A DAY , Notes to Pharmacist: *Please review and pick correct strength-formulation from [employer] options. If intended option is not shown, [...] in each nostril Nasally Twice a day Not-Taking/PRNFLOVENT Flovent HFA , Notes to Pharmacist: *Please review and pick correct strength-formulation from [employer] options. If intended option is not shown, discontinue and re-order from Quick Search*IPRATROPIUM BROMIDE HYDROUS, 1 G , Notes to Pharmacist: *Please review for potential replacement for e-prescription and drug interaction check*Not-Taking/PRN FLOVENT Not-Taking/PRN Flovent HFA , Notes to Pharmacist: *Please review and pick correct strength-formulation from [employer] options. If intended option is not shown, discontinue and re-order from Quick Search*Not-Taking/PRN IPRATROPIUM BROMIDE HYDROUS, 1 G , Notes to Pharmacist: *Please review for potential replacement for e-prescription and drug interaction check* Objective: * Vitals: Assessment: * Assessment: 1. A llergic rhinitis due to pollen - J30.1 (Primary) 2 . A llergic rhinitis due to animal (cat) (dog) hair and dander - J30.81 3 . O ther allergic rhinitis - J30.89 4 . O ther chronic allergic conjunctivitis - H10.45 Plan: * Treatment: * Procedure Codes: 9 5117 IMMUNOTHERAPY INJECTIONS * Follow Up: 1 Week * Billing Information: * Visit Code: * Procedure Codes: 54872 IMMUNOTHERAPY INJECTIONS. * Sign off status: Completed true * Provider: Zoe Mayen MD Date: 0 08/02/2024 Generated for Juno zamorano/Erich/Handysmitting on: 0 08/18/2024 02:41 PM CDT History and Physical Notes * HPI (History of Present Illness) Category Sub-Category Detail Notes Category Not es *Introduction The patient is here for scheduled specific allergen immunotherapy. Please see the attached specialty form regarding the specifics of the administration of these vaccines. As per our protocol, they must undergo a screening health questionnaire (medication changes, reaction(s) to last immunotherapy dose(s), current health status, ACT (if appropriate), self-injectable epinephrine on patient(?) and peak flow (if appropriate)). Also, the patient must wait in our office for 30 minutes after receiving immunotherapy. Furthermore, every patient must have an epinephrine pen (self-injectable) with them at the time of administration--and carry if for the following 1.5 hours after they leave our office. The patient must also have taken their antihistamine the day of the injection, preferably 2 hours prior. The consent form for SCIT (subcutaneous immunotherapy) is on file.
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
--- OUTSIDE RECORDS SUMMARY | 2024-08-18 14:42 | XMS_ITS | Continuity of Care Document ---
Author Name [facility] Address [address] [place] [address] Organization [facility] Care Team Providers Care Data Analyst Etl Developer Name Role Phone [facility] Unavailable Unavailable Problems Problem Status Onset Date [...] Source [facility] [id number] LP [facility] [id number] 1 YR FU LP [facility] CR [facility]IAN OP CLINIC [id number] PELVIC FLOOR RETENTION Hussain Tyson [facility] MOO MOO NIYAH DIAGNOSTIC TESTING [id number] skeletal dyplasia, back pain [facility] CR [facility]IAN OP CLINIC [phone] PELVIC FLOOR PROBLEMS Hussain Tyson [facility]
[2024-08-18 14:45] VITALS: BP 153/63; PULSE 108; RESP 18; TEMP 36.5; O2SAT 97
--- NOTE | 2024-08-18 15:40 | PC.NURSE ---
[place]ounty health officer giving provider to provider report.
--- NOTE | 2024-08-18 15:47 | PC.NURSE ---
in process of arranging transportation, calling facility that provides in home care, but is aware ems transfer available.
--- NOTE | 2024-08-18 15:53 | PC.NURSE ---
has another care provider en route to provide transportation to [facility].
--- NOTE | 2024-08-18 15:58 | ED.GENADULT ---
HPI - General Adult General Chief complaint: Vaginal Bleeding Stated complaint: Skin Sore/Wound Check Source: patient Mode of arrival: ambulatory Limitations: no limitations History of Present Illness HPI narrative: Patient presents for evaluation of vaginal bleeding. She indicates that the start of August she had some vaginal HPV lesions removed at [facility]. She has experienced some spotting since that time. Today around 1300 she experienced a pressure in her pelvic region. She then noted some vaginal bleeding. It moderately saturated her panty liner and she has been using tissue to absorb the bleeding since that time. She has a mild vibrating sensation in her pelvic region. She is not anticoagulated and has not taken any aspirin or NSAIDs recently. She denies any nausea, vomiting, dizziness, SOB or other symptoms. Related Data Home Medications ?Medication ?Instructions ?Recorded ?Confirmed ?Last Taken ?Type cholecalciferol (vitamin D3) 125 125 mcg PO DAILY 07/21/20 08/18/24 Unknown History mcg (5,000 unit) capsule cranberry extract 250 mg capsule 250 mg PO DAILY 07/21/20 08/18/24 Unknown History krill 500 mg-omega-3 150 mg-dha 45 1 cap PO DAILY 07/21/20 08/18/24 Unknown History mg-epa 75 fi-txmrohc-uaguc capsule (krill oil) magnesium citrate 125 mg capsule 125 mg PO DAILY 07/21/20 08/18/24 Unknown History rosuvastatin 5 mg tablet 5 mg PO DAILY 07/21/20 08/18/24 Unknown History fluticasone propionate 110 110 inh inhalation DIRECTED 09/24/22 08/18/24 Unknown History mcg/actuation HFA aerosol inhaler (Flovent HFA) estradiol 10 mcg vaginal tablet mcg vaginal 08/18/24 Unknown History famotidine 20 mg tablet mg 08/18/24 Unknown History fluticasone propionate 50 intranasal 08/18/24 Unknown History mcg/actuation nasal spray,suspension Allergies Allergy/AdvReac Type Severity Reaction Status Date / Time amitriptyline Allergy Intermediate BLOOD IN Verified 08/18/24 14:48 STOOL AND COUGHING UP BLOOD cephalexin Allergy Intermediate HIVES Verified 08/18/24 14:48 Sulfa (Sulfonamide Allergy Intermediate Wheezing Verified 08/18/24 14:48 Antibiotics) fructose Allergy Mild Other Verified 08/18/24 14:48 Review of Systems Review of Systems: CONSTITUTIONAL: Denies fever, chills, or sweats. EYES: Denies visual changes, redness, or discharge. ENT: Denies rhinorrhea, congestion, sore throat, or otalgia. CARDIOVASCULAR: Denies chest pain, palpitations, or edema. RESPIRATORY: Denies cough or dyspnea. GASTROINTESTINAL: Denies abdominal pain, nausea, vomiting, or diarrhea. GENITOURINARY: Reports pelvis pain and vaginal bleeding. Denies dysuria or hematuria. SKIN: Denies rash or itching. MUSCULOSKELETAL: Denies back pain, joint pain, or myalgia. NEUROLOGIC: Denies headache, numbness, dizziness, or weakness. PSYCHIATRIC: Denies anxiety or depression. [facility] Past Medical History Medical History Asthma Dwarfism GERD (gastroesophageal reflux disease) High cholesterol Osteoporosis Post-menopausal Scoliosis deformity of spine transfixed with Thurston RODs and wires Surgical History Surgical History History of spinal fusion Hx of appendectomy Family History Family History Father Cancer Hypertension Heart disease Mother Alcoholism Grandparent Cancer Hypertension Depression Heart disease Social History Social History Smoking status: Never smoker Alcohol intake: never Substance use: never Course Course Emergency Course: This is a 68 year old little person who presented for evaluation of vaginal bleeding. On exam she does have some mild active bleeding. Her BP is stable. Unfortunately we do not have pediatric speculum is to perform an exam on her today. I recommended she be transferred to [facility] for further evaluation. I contacted on-call OBGYN fellow, Dr. Lira, who recommended pt be sent to the ER and her team can assess the patient there. I contacted the ER and RN, Christen, advised that Dr Jv Stark would accept the pt for transfer there. Pt in agreement with plans for transfer. Pt transferred to ER via EMS. Level of Care: Express Care Visit Vital Signs Vital signs: Vital Signs Temperature 36.5 C 08/18/24 14:45 Pulse Rate 108 H 08/18/24 14:45 Respiratory Rate 18 08/18/24 14:45 Blood Pressure 153/63 H 08/18/24 14:45 Pulse Oximetry 97 04/12/25 14:45 Oxygen Delivery Room Air 08/18/24 14:45 Temperature 36.5 C 08/18/24 14:45 Pulse Rate 108 H 08/18/24 14:45 Respiratory Rate 18 08/18/24 14:45 Blood Pressure 153/63 H 08/18/24 14:45 Pulse Oximetry 97 08/18/24 14:45 Oxygen Delivery Room Air 08/18/24 14:45 Medical Decision Making Vital Signs Vital Signs: Vital Signs Temperature 36.5 C 08/18/24 14:45 Pulse Rate 108 H 08/18/24 14:45 Respiratory Rate 18 08/18/24 14:45 Blood Pressure 153/63 H 08/18/24 14:45 Pulse Oximetry 97 08/18/24 14:45 Oxygen Delivery Room Air 08/18/24 14:45 Temperature 36.5 C 08/18/24 14:45 Pulse Rate 108 H 08/18/24 14:45 Respiratory Rate 18 08/18/24 14:45 Blood Pressure 153/63 H 08/18/24 14:45 Pulse Oximetry 97 08/18/24 14:45 Oxygen Delivery Room Air 08/18/24 14:45 Discharge Plan Discharge Clinical Impression: Vaginal bleeding Patient Disposition: Acute Care Hospital Condition: Stable Patient Language: Uzbek Prescriptions: No Action famotidine 20 mg tablet fluticasone propionate 50 mcg/actuation spray,suspension INTRANASAL estradiol 10 mcg tablet VAGINAL albuterol sulfate 90 mcg/actuation HFA aerosol inhaler 1 inh inhalation QID PRN (Reason: shortness of breath or wheezing) Qty: 8.5 0RF fluticasone propionate [Flovent HFA] 110 mcg/actuation HFA aerosol inhaler 110 inh INHALATION DIRECTED rosuvastatin 5 mg tablet 5 mg PO DAILY krill oil 639-106-48-75 mg capsule 1 cap PO DAILY cranberry extract 250 mg capsule 250 mg PO DAILY Rx Instructions: administer with a meal cholecalciferol (vitamin D3) 125 mcg (5,000 unit) capsule 125 mcg PO DAILY magnesium citrate 125 mg capsule 125 mg PO DAILY Follow-up/Referrals: La,Donal Cornejo MD [Primary Care Provider] - Time of Disposition: 15:58
== END 2024-08-18 16:27 | disposition short-term general hospital (02) ==
PROVIDERS: Emergency Provider Nurse Practitioner; PCP Internal Medicine
DX: N93.9 Abnormal uterine and vaginal bleeding, unspecified (principal); Z79.899 Other long term (current) drug therapy
CPT/HCPCS: 99212; G0463

== ENCOUNTER 2025-05-03 14:37 | Emergency (ER) | payer MEDICARE, SELFPAY ==
--- OUTSIDE RECORDS SUMMARY | 2025-01-02 11:30 | XMS_ITS ---
Author Organization Formerly [facility] [place] ([address]) Address [address] [place] [address] Care Team Providers Care Operations Planner Name Role Phone Donal Tovar Primary Care Provider Ana Graham Unavailable [phone] Don Mayen Unavailable [phone] REASON FOR VISIT SCIT (Aeroallergen) Social History Sex Assigned At : Social History Observation Description Sex Assigned At Female Encounters Encounter Location Date Provider Diagnosis [facility] [address] [place] [address] 01/02/2025 Don Mayen Plan Of Treatment Next Appt Details Provider Name:Don Mayen , 05/16/2025 03:20:00 PM, [address] [facility], [address], [place], [address], Progress Notes * Elia RODRÍGUEZB:01/1956 (69 yo F)Acc No.[id number]:01/02/2025 SCIT-Aeroallergen Patient: Wilder Stephanie LEUNG Provider: Zoe Mayen MD :1955 A ge:69 Y S ex:Female Date:01/02/2025 Address:[address] [place] [address], [id number] Pcp:Donal Tovar Subjective: * Chief Complaints: * 1 . SCIT (Aeroallergen). * Medical History: Objective: * Vitals: Assessment: Plan: * Treatment: * Billing Information: * Visit Code: * Procedure Codes: * Electronic signature of Yadira Mayen MD, FAAAAI on 05/03/2025 at 02:40 PM INSPECTOR COATED FABRICS Sign off status: Pending * Provider: Zoe Mayen MD Date: 0 01/02/2025 Generated for Juno zamorano/Erich/Yeseniaitting on: 1 07/04/2024 02:40 PM INSPECTOR [employer]
--- OUTSIDE RECORDS SUMMARY | 2025-01-03 11:30 | XMS_ITS ---
Author Organization [facility] [place] ([address]) Address [address] [place] [address] Care Team Providers Care Real Estate Loan Processor Name Role Phone Donal Tovar Primary Care Provider Ana Graham Unavailable [phone] Don Mayen Unavailable [phone] REASON FOR VISIT SCIT (Aeroallergen) Social History Sex Assigned At : Social History Observation Description Sex Assigned At Female Encounters Encounter Location Date Provider Diagnosis [facility] [address] [place] [address] 01/03/2025 Don Mayen Plan Of Treatment Next Appt Details Provider Name:Don Mayen , 05/16/2025 03:20:00 PM, [address] [facility], [address], [place], [address], Progress Notes * Elia RODRÍGUEZB:01/1956 (69 yo F)Acc No.[id number]:01/03/2025 SCIT-Aeroallergen Patient: Wilder Stephanie LEUNG Provider: Zoe Mayen MD :1955 A ge:69 Y S ex:Female Date:01/03/2025 Address:[address] [place] [address], [id number] Pcp:Donal Tovar Subjective: * Chief Complaints: * 1 . SCIT (Aeroallergen). * Medical History: Objective: * Vitals: Assessment: Plan: * Treatment: * Billing Information: * Visit Code: * Procedure Codes: * Electronic signature of Yadira Mayen MD, FAAAAI on 05/03/2025 at 02:41 PM CASTING TECHNICIAN Sign off status: Pending * Provider: Zoe Mayen MD Date: 0 01/03/2025 Generated for Juno zamorano/Erich/Yeseniaitting on: 1 07/04/2024 02:41 PM CASTING TECHNICIAN
--- OUTSIDE RECORDS SUMMARY | 2025-03-18 11:30 | XMS_ITS ---
Author Organization [facility] [employer] [facility] [place] ([address]) Address [address] [place] [address] Care Team Providers Care Corporate Planner Name Role Phone Donal Tovar Primary Care Provider Ana Graham Unavailable [phone] Don Mayen Unavailable [phone] REASON FOR VISIT SCIT - Traditional Schedule Allergy immunotherapy Social History Sex Assigned At : Social History Observation Description Sex Assigned At Female Encounters Encounter Location Date Provider Diagnosis [facility] [place] [address] [place] [address] 03/18/2025 Don Mayen Allergic rhinitis du e to pollen J30.1 ; Allergic rhinitis due to animal (cat) (dog) hair and dander J30.81 ; Other allergic rhinitis J30.89 and Other chronic allergic conjunctivitis H10.45 Assessments Encounter Date Diagnosis (ICD Code) Assessment Notes Treatment Notes Treatment Clinical Notes Section Notes 03/18/2025 Allergic rhinitis due to pollen (ICD-10 - J30.1) 03/18/2025 Allergic rhinitis due to animal (cat) (dog) hair and dander (ICD-10 - J30.81) 03/18/2025 Other allergic rhinitis (ICD-10 - J30.89) 03/18/2025 Other chronic allergic conjunctivitis (ICD-10 - H10.45) 03/18/2025 Other Plan Of Treatment Next Appt Details Follow Up: 1 Week, Reason: Provider Name:Don Champagne Faheem , 05/16/2025 03:20:00 PM, [address] [facility], [address], [place], [address], Progress Notes * Elia RODRÍGUEZB:01/1956 (69 yo F)Acc No.[id number]:03/18/2025 SCIT-Aeroallergen Patient: Stephanie COLE Provider: Zoe Mayen MD :1955 A ge:69 Y S ex:Female Date:03/18/2025 Address:[address] [place] [address], [address] Pcp:Donal Tovar Subjective: * Chief Complaints: * 1 . SCIT - Traditional Schedule Allergy immunotherapy. * HPI: * Introduction: The patient is [...] and history, othwise unremarkable. * Medical History: Objective: * Vitals: Assessment: * Assessment: 1. A llergic rhinitis due to pollen - J30.1 (Primary) 2 . A llergic rhinitis due to animal (cat) (dog) hair and dander - J30.81 3 . O ther allergic rhinitis - J30.89 4 . O ther chronic allergic conjunctivitis - H10.45 Plan: * Treatment: * Follow Up: 1 Week * Billing Information: * Visit Code: * Procedure Codes: 02425 IMMUNOTHERAPY INJECTIONS. * Electronic signature of Yadira Mayen MD, FAAAAI on 05/03/2025 at 02:41 PM FIRE BEHAVIOR ANALYST Sign off status: Pending * Provider: Zoe Mayen MD Date: 05/18/2024 Generated for Juno zamorano/Erich/eTransmitting on: 07/04/2024 02:41 PM FIRE BEHAVIOR ANALYST History and Physical Notes * HPI (History [...]
--- NOTE | ~2025-05-03 | XR_ITS ---
XR knee LT min 4V 05/03/2025 15:09 Indication: Left knee pain Procedure: 2 views left knee Comparison: No prior studies for comparison. Findings: There is a proximal tibial metadiaphyseal fracture with valgus angulation. Generalized osteopenia. There is joint space narrowing of the knee. No significant joint effusion. Impression: 1: Proximal tibial metadiaphyseal fracture with valgus angulation. Reviewed, dictated and finalized at location O. [facility] Impression: 1: Proximal tibial metadiaphyseal fracture with valgus angulation.
--- NOTE | 2025-05-03 14:39 | ED.LOWEXIN ---
HPI - Extremity Injury (Lower) General Chief Complaint: Extremity Injury, Lower Stated Complaint: Left Knee Pain Time Seen by Provider: 05/03/25 14:39 Source: patient and other (Caregiver) Mode of arrival: ambulatory Limitations: no limitations History of Present Illness HPI Narrative: Stephanie is a 69-year-old female patient presenting to the clinic today with complaints of left knee pain. She reports she was getting out of a vehicle and her foot got caught and she felt a loud pop and had instant pain to the left knee area. Has not taken any medications for her symptoms. No prior treatment prior to arrival. History of dwarfism and osteoporosis Related Data Home Medications ?Medication ?Instructions ?Recorded ?Confirmed ?Last Taken ?Type cholecalciferol (vitamin D3) 125 125 mcg PO DAILY 07/21/20 08/18/24 Unknown History mcg (5,000 unit) capsule cranberry extract 250 mg capsule 250 mg PO DAILY 07/21/20 08/18/24 Unknown History krill 500 mg-omega-3 150 mg-dha 45 1 cap PO DAILY 07/21/20 08/18/24 Unknown History mg-epa 75 op-deaxakv-uippx capsule (krill oil) magnesium citrate 125 mg capsule 125 mg PO DAILY 07/21/20 08/18/24 Unknown History rosuvastatin 5 mg tablet 5 mg PO DAILY 07/21/20 08/18/24 Unknown History fluticasone propionate 110 110 inh inhalation DIRECTED 09/24/22 08/18/24 Unknown History mcg/actuation HFA aerosol inhaler (Flovent HFA) estradiol 10 mcg vaginal tablet mcg vaginal 08/18/24 Unknown History famotidine 20 mg tablet mg 08/18/24 Unknown History ipratropium bromide 21 mcg (0.03 intranasal 05/03/25 Unknown History %) nasal spray Allergies Allergy/AdvReac Type Severity Reaction Status Date / Time amitriptyline Allergy Intermediate BLOOD IN Verified 05/03/25 14:54 STOOL AND COUGHING UP BLOOD cephalexin Allergy Intermediate HIVES Verified 05/03/25 14:54 Sulfa (Sulfonamide Allergy Intermediate Wheezing Verified 05/03/25 14:54 Antibiotics) fructose Allergy Mild Other Verified 05/03/25 14:54 tree nut Allergy Unknown Unknown Verified 05/03/25 14:54 Review of Systems Review of Systems: Pertinent positives per HPI. Patient denies any fever, chills, rash, headache, visual changes, dizziness, cough, runny nose, sore throat, shortness of breath, chest pain, palpitations, nausea, vomiting, diarrhea, constipation, abdominal pain, or any urinary issues. [facility] Past Medical History Medical History Post-menopausal Dwarfism Asthma Scoliosis deformity of spine transfixed with [place] RODs and wires High cholesterol Osteoporosis GERD (gastroesophageal reflux disease) Surgical History Surgical History Hx of appendectomy History of spinal fusion Family History Family History Father Cancer Hypertension Heart disease Mother Alcoholism Grandparent Cancer Hypertension Depression Heart disease Social History Social History Smoking status: Never smoker Alcohol intake: never Substance use: never Comments At the time of my signature, I reviewed and agree with the nursing past medical, surgical, social, and family history. There is no relevant family history pertinent to the patient complaint. Exam Narrative: General: Well-developed, well nourished, in no apparent distress Head: Normocephalic, atraumatic. Cardio: Regular rate and rhythm, s1 and s2 normal, no murmur appreciated. Resp: Clear to auscultation bilaterally, no rhonchi, rales, wheezing or rubs. Musculoskeletal: No deformity, tender to palpation over the inferior knee/proximal tibia, unable to perform range of motion as it causes pain, muscle strength strong and equal, peripheral pulse strong, no edema, no cyanosis, sitting in a wheelchair Course Course Level of Care: Express Care Visit MDM MDM Narrative Medical decision making narrative: At the time of visit patient is resting comfortably on the exam table. Patient appears to be nontoxic. Patient is sitting in wheelchair. Complaints of left knee pain. She reports she was getting out of a vehicle and her left foot got caught and she felt a loud pop and had instant pain to the left knee area. Has not taken any medications for her symptoms. No prior treatment prior to arrival. On exam patient has tenderness to palpation over the proximal tibia. Pain with any type of range of motion. Pain is radiating up into her hip. History of dwarfism and osteoporosis. X-ray of the left knee was ordered. Discussed patient's case with Dr. Blanchard at [facility] and Dr. Loving-orthopedic provider-recommend transfer the patient to [place] or [facility]-for surgery. Diagnostics: X-ray of the left knee was performed and shows a proximal tibia fracture with valgus angulation. Long leg posterior OCL splint applied. Plan: Patient lives at home alone and is unable to care for herself with non weight bearing for the right leg. Has a caregiver that comes 3 times per week. Patient has proximal tibia fracture with valgus angulation. Recommend transfer to the ER for further evaluation-patient will likely need surgery, pain management, admission, and rehab. Differential Diagnosis Differential Diagnosis: Differential diagnostic considerations for lower extremity injury include ankle sprain/strain, acute internal derangement of knee, fracture of femur, fracture of hip, puncture wound of foot, fracture of toe, fracture of ankle, tendon rupture (achilles/patellar/quadriceps). Imaging Data Radiologist's impression: ITS Impressions Knee X-Ray 05/03/25 15:12 Impression: 1: Proximal tibial metadiaphyseal fracture with valgus angulation. Discharge Plan Discharge Clinical Impression: Fracture of proximal end of left tibia Qualifiers: Encounter type: initial encounter Fracture type: closed Fracture morphology: other fracture Qualified Code(s): S82.192A - Other fracture of upper end of left tibia, initial encounter for closed fracture Patient Disposition: Acute Care Hospital Condition: Stable Patient Language: Hebrew Prescriptions: No Action famotidine 20 mg tablet estradiol 10 mcg tablet VAGINAL albuterol sulfate 90 mcg/actuation HFA aerosol inhaler 1 inh inhalation QID PRN (Reason: shortness of breath or wheezing) Qty: 8.5 0RF fluticasone propionate [Flovent HFA] 110 mcg/actuation HFA aerosol inhaler 110 inh INHALATION DIRECTED ipratropium bromide 21 mcg (0.03 %) spray,non-aerosol INTRANASAL rosuvastatin 5 mg tablet 5 mg PO DAILY krill oil 011-981-18-75 mg capsule 1 cap PO DAILY cranberry extract 250 mg capsule 250 mg PO DAILY Rx Instructions: administer with a meal cholecalciferol (vitamin D3) 125 mcg (5,000 unit) capsule 125 mcg PO DAILY magnesium citrate 125 mg capsule 125 mg PO DAILY Follow-up/Referrals: La,Donal Cornejo MD [Primary Care Provider] Time of Disposition: 15:48 Quality NIHSS Nursing Documentation ED NIHSS nursing documentation: reviewed/agree
--- OUTSIDE RECORDS SUMMARY | 2025-05-03 14:40 | XMS_ITS | Encounter Summary ---
Author Organization [facility] Address [address] [place] [address] Phone Care Team Providers Care Collection Development Librarian Name Role Phone Donal Tovar MD Primary Care Provider Jacinta Bull MD Unavailable [phone] Romina Yanez MA Unavailable [phone] Maura Miranda DPT Unavailable [phone] Encounter Details Date Type Department Care Team (Late st Contact Info) Description 06/09/[address] 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 us Historical Provider MD CHRISTIANSON XR PROCEDURES Final R esult * GENERAL RADIOLOGY REPORT (06/09/2015) Anatomical Region Laterality Modality Radiographic Liz ging Narrative 06/09/2015 Ordered by an unspecified provider. Historical Provider MD CHRISTIANSON XR PROCEDURES Final R esult documented in this encounter Visit Diagnoses Not on filedocumented in this encounter Care Teams Collection Development Librarian Relationship Specialty Start Date End Date Donal Tovar MD PCP - General 09/17/14 Jacinta Bull MD [address] [facility] [phone] [place] [address] Referring Physician Obstetrics and Gynecology 06/30/18 03/01/19 Romina Yanez MA [address] [facility] [address] [place] [address] ACO Care Tower Observer 08/23/24 08/23/24 Maura Miranda DPT [address] [facility] [address] [facility] [address] [place] [address] Physical Therapist Physical Therapy 09/26/24 01/02/25 documented as of this encounter
--- OUTSIDE RECORDS SUMMARY | 2025-05-03 14:40 | XMS_ITS | Encounter Summary ---
Author Organization [facility] Address [address] [place] [address] Care Team Providers Care Fire Claims Adjuster Name Role Phone Donal Tovar MD Primary Care Provider Romina Yanez MA Unavailable [phone] Maura Miranda DPT Unavailable [phone] Reason for Visit * Auth/Cert Specialty Diagnoses / Procedures Referred By Dante rocha Referred To Contact Diagnoses Screening for colon cancer Screening for colon cancer [Z12.11] Procedures CO COLONOSCOPY FLX DX W/COLLJ SPEC WHEN PFRMD COLONOSCOPY Referral ID Status Reason Start Date Expiration Date Visits Re quested Visits Authorized [id number] 1 1 Encounter Details Date Type Department Care Team (Late st Contact Info) Description 07/03/2024 Hospital Encounter [facility] [address] [place] [address] Rosaura Gates MD [address] [place] [id number] Social History Tobacco Use Types Packs/Day Years [...] you have a drink containing alcohol? Never 11/28/2024 Q2: How many drinks containi ng alcohol do you have on a typical day when you are drinking? Patient does not drink Q3: How often do you have si x or more drinks on one occasion? Never 11/28/2024 PHQ-2 Answer Date Recorded PHQ-2 Total Score (If total score is 3 or more points, staff should administer the PHQ-9) 0 02/18/2025 Personal Safety Answer Date Recorded Have you ever been in or are you currently in a harmful physical or emotional relationship or is someone making you feel afraid or unsafe? 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 Gender Identity Not on file Sexual Orientation Not on file documented as of this encounter Plan of Treatment Not on file documented as of this encounter Visit Diagnoses Not on filedocumented in this encounter Admitting Diagnoses Diagnosis Screening for colon cancer Special screening for malignant neoplasms, colon documented in this encounter Care Teams Fire Claims Adjuster Relationship Specialty Start Date End Date Donal Tovar MD PCP - General 09/17/14 Romina Yanez MA [address] [place] [address] [address] [place] [address] ACO Care Catering Chef 08/23/24 08/23/24 Maura Miranda DPT [address] [place] [address] Physical Therapist Physical Therapy 09/26/24 01/02/25 documented as of this encounter
--- OUTSIDE RECORDS SUMMARY | 2025-05-03 14:41 | XMS_ITS | Clinical Summary ---
Author Organization [facility] Address [address] [place] [address] Care Team Providers Care Telemetry Monitor Name Role Phone Donal Tovar MD Primary Care Provider Allergies Active Allergy Reactions Criticality Noted Date Comments Amitriptyline Hives,Urticaria Medium 08/06/2013 Sulfamethoxazole-Trime thoprim Other (See comments) Low 07/07/2018 Deep wheezing and cough spasms Cat Hair Standardized Allergenic Extract Cough Low 02/28/2013 Cephalexin Other (See comments),Unknown Low 01/09/2019 blood in stool and coughing up blood blood in stools Fructose Other (See comments) Low 08/30/2012 malabsorption fructose malabsorbtion Grass Pollen Other (See comments) Low 02/28/2013 Seasonal allergy symptoms Shellfish Stomach upset,Swelling Medium 02/28/2013 Medications magnesium oxide (MAG-OX) 250 mg (150.8 mg elemental) tabletIndication s:hypomagnesemia Take 0.5 tablets (125 mg total) by mouth every morning Active sodium chloride (OCEAN) 0.65 % dropsIndications :Dry Nose Administer 1 spray into affected nostril(s) as needed for congestion Active cholecalciferol (VITAMIN D-3) 5,000 unit tabletIndication s:Prevention of Vitamin D Deficiency Take 1 tablet (5,000 Units total) by mouth every 14 (fourteen) days Active polyethylene glycol (MIRALAX) 17 gram packetIndication s:constipation Take 1 packet (17 g total) by mouth every morning Active multivitamin-franky cium carb tablet,chewableI ndications:Vitam in Deficiency Prevention Take 0.5 tablets by mouth every morning Active cetirizine (ZyrTEC) 10 mg tabletIndication s:Seasonal Allergic Rhinitis,allergi es Take 1 tablet (10 mg total) by mouth daily as needed for allergies Active UNABLE TO FINDIndications: SUPPLEMENT Take 0.5 each by mouth every morning Med Name: OSTEO-GAURD Active acetaminophen (TYLENOL) 325 mg tabletIndication s:Pain Take 1 tablet (325 mg total) by mouth every 6 (six) hours as needed for pain Active fluticasone propionate (FLONASE) 50 mcg/actuation nasal sprayIndications :Other chronic sinusitis Administer 1 spray into each nostril 2 (two) times a day 1 each 11 5 Active cranberry fruit extract (cranberry extract) 250 mg capsule Take 1 capsule (250 mg total) by mouth daily Active omeprazole 20 mg tablet,disintegr at, delay rel daily Active ipratropium (ATROVENT) 42 mcg (0.06 %) nasal spray 5 Active rosuvastatin (CRESTOR) 5 mg tabletIndication s:hyperlipidemia TAKE 1 TABLET (5 MG TOTAL) BY MOUTH NIGHTLY 90 tablet 3 5 Active estradioL (VAGIFEM) 10 mcg tabletIndication s:Atrophy of Vulva INSERT 0.5 TABLETS (5 MCG TOTAL) INTO THE VAGINA NIGHTLY 15 tablet 3 5 Active predniSONE (DELTASONE) 20 mg tablet Take 1 tablet (20 mg) by mouth daily 5 tablet 5 Active nitrofurantoin monohydrate (MACROBID) 100 mg capsuleIndicatio ns:Acute cystitis with hematuria Take 1 capsule (100 mg total) by mouth 2 (two) times a day for 5 days 10 capsule 5 04/28/20 25 Hospital, Clinic, or Other Facility Administered Medication Ordered Dose Route Frequency Start Date End Date Status romosozumab-aqqg (EVENITY) 210 mg/2.34 mL subcutaneous syringe 105 mgIndications:Age-related osteoporosis without current pathological fracture 105 mg subQ Once 04/16/2025 04/16/2025 Ended Active Problems Problem Noted Date Diagnosed Date Wheelchair dependent 02/18/2025 Esophageal stricture 01/25/2025 Assessment & Plan (01/25/2025 3:53 PM CDT): Esophageal dysmotility 10/03/2024 Dysphasia 04/20/2024 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 With her current [place] and [place] 3 along with aspirin, heart healthy diet and mild exercise as tolerated given debility. Sacroiliitis, not elsewhere classified 9 Moderate malnutrition 11/13/2018 MAKI III (cervical intraepith elial neoplasia grade III) with severe dysplasia 06/25/2018 Weight loss 02/14/2017 Dwarfism 02/14/2017 Neurogenic bladder 02/14/2017 Assessment & Plan (01/25/2025 3:53 PM CDT): Assessment & Plan (02/28/2020 2:25 PM CDT): Self catheterizes at home but declines any concerns or complaints today. Follow- up with urologist as scheduled. Thoracogenic scoliosis of thoracolumbar region 1 Assessment & Plan (01/25/2025 3:53 PM CDT): Assessment & Plan (02/28/2020 2:26 PM CDT): Mild tenderness surrounding her thoracic spine likely D/T scoliosis. Recommending topical analgesics given her Hx of GERD and avoiding NSAID use. Heat, repositioning and further follow-up with ongoing sx. Hernia of anterior abdominal wall 09/14/2016 Diffuse esophageal spasm 04/29/2014 Fructose intolerance 04/08/2014 Osteoporosis 09/22/2013 Overview (08/10/2018): Zoledronic acid 2.5 mg doses given at [place], [place] - March 2009, July 2011, September 2013, June 2015 and July 2017 . She supplements her diet which includes almond milk with vitamin-D 5000 IU every 2 weeks. Previous medications include alendronate, teriparatide with severe reaction after 1st dose. Nasal congestion 12/18/2012 Perforation of nasal septum 12/18/2012 Fusion of spine of lumbar region 09/11/2012 Assessment & Plan (01/25/2025 3:53 PM CDT): Fusion of spine of thoracic region 09/11/2012 Assessment & Plan (01/25/2025 3:53 PM CDT): Scoliosis associated with other condition 2012 Low back pain 01/06/2012 Overview (08/11/2016): Lumbago Right sided sciatica 03/13/2009 Lumbago 03/13/2009 Muscle strain Resolved Problems Problem Noted Date Diagnosed Date Resolved Date Screening for colon cancer 09/28/2023 1 Welcome to Medicare preventive visit 02/28/2020 02/18/2025 Assessment & Plan (02/28/2020 2:23 PM CDT): [...] a living will and durable power of rural service engineer in place. In regard to social hx- [...] reordered today and requesting prior records from [facility] Last mammogram was negative in 2018- mammogram [...] year in 6 months regarding chronic conditions Fall 11/12/2018 02/22/2019 Allergic state 09/22/2013 02/22/2019 Overview (08/11/2016): ALLERGY, UNSPECIFIED Abdominal pain 03/09/2010 02/22/2019 Encounters Date Type Department Care Team Description 04/29/2025 Telephone [facility] Medicine Obstetrics and Gynecology [address] [facility] Advanced Medicine 13th [place] [address] Erika Meza RN 04/26/2025 Results Follow-Up [facility] at [address] [place] [address] Adriana Bower MD Urinalysis reflex to microscopic and culture Urine, Urinalysis, microscopic only, Urine culture Urine 04/25/2025 Telephone [facility] Medicine Obstetrics and Gynecology [address] [facility] Advanced Medicine 13th [place] [address] Erika Meza RN 04/23/2025 3:41 PM REGISTERED RADIOLOGIC TECHNOLOGIST - 04/23/2025 11:59 PM REGISTERED RADIOLOGIC TECHNOLOGIST Hospital Encounter [address] [address] Acute cystitis with hematuria Discharge Disposition: Discharge to home or self care 04/23/2025 2:30 PM REGISTERED RADIOLOGIC TECHNOLOGIST Office Visit [facility] at [address] [address] Adriana Bower MD Malodorous urine (Primary Dx); Acute cystitis with hematuria 04/23/2025 Nurse Triage [facility] at [address] [address] Donal Tovar MD 04/16/2025 3:15 PM REGISTERED RADIOLOGIC TECHNOLOGIST Clinical Support [facility] at [address] [address] Age-related osteoporosis without current pathological fracture (Primary Dx) 03/27/2025 ACO Medication Access [facility] [address] [place] [address] Ana Kuo CPhT 03/22/2025 Telephone [facility] at [address] [phone] Donal Tovar MD 03/13/2025 Telephone [facility] at [address] [address] Donal Tovar MD 03/12/2025 3:00 PM REGISTERED RADIOLOGIC TECHNOLOGIST Clinical Support [facility] at [address] [phone] Age-related osteoporosis without current pathological fracture (Primary Dx) 02/22/2025 Results Follow-Up [facility] at [address] [address] Mahamed Miguel PA Urine culture Urine, in and out catheter, Urinalysis reflex to microscopic, NOTE 02/22/2025 Orders Only [facility] at [address] [phone] Mahamed Miguel PA 02/19/2025 Orders Only [facility] at [address] [phone] Mahamed Miguel PA Urinary frequency 02/19/2025 Telephone [facility] at [address] [place] [phone] Donal Tovar MD Medical Question/Miscellaneo us 02/19/2025 Results Follow-Up [facility] Primary Care at [address] [phone] Mahamed Miguel PA Extra Specimen 02/18/2025 3:15 PM CDT Office Visit [facility] at [address] [phone] Mahamed Miguel PA Acute idiopathic gout of right foot (Primary Dx); Urinary frequency; Wheelchair dependent; Mixed hyperlipidemia; Neurogenic bladder 02/18/2025 Orders Only [facility] Medical [facility] Primary Care at [address] [phone] Mahamed Guillaume DO Pain of foot, unspecified laterality (Primary Dx) 02/05/2025 3:00 PM CDT Clinical Support [facility] Medical [facility] Primary Care at [address] [address] Age-related osteoporosis without current pathological fracture (Primary Dx) from Last 3 Months Immunizations Immunization Administration Dates Next Due Influenza, Quadrivalent, Hig h Dose, Preservative Free, Intrr 03/18/2023,03/17/2022 Influenza, Quadrivalent, Spl it, Intramuscular 03/06/2018,02/15/2017,03/10/2016 Influenza, Quadrivalent, Spl it, Preservative Free, Intramuscular 03/10/2021,02/28/2020,02/22/2019 Influenza, Trivalent, High D ose, Split, Preservative Free, Intramuscular 03/23/2024,04/14/2020,03/10/2016 Influenza, Trivalent, IM (MDV) 6,03/27/2015,02/19/2013,03/14,03/15/2011 Influenza, Trivalent, [...] Other Medical flat feet Hx Other Medical 01-HAND ETCHER Hx Other Medical 02-GI Hx Other Medical 03-Orthopedist Osteoporosis Osteoporosis Hx Other Medical 04-Urologist @ [facility] Hx Other Medical 1994 abd weakened wa ll-hernia Hx Other Medical [...] on file Legal Sex Female 11:55 PM REGISTERED RADIOLOGIC TECHNOLOGIST Gender Identity Not on file Sexual Orientation Not on file Obstetrics History Para Term AB IAB SAB Ectopic Multiple Livin g Live Births 0 0 0 2 2 Comments 15/0/0 LTR 7.1% Last Filed Vital Signs Vital Sign Reading Time Taken Comments Blood Pressure 145/73 04/23/2025 2:53 PM REGISTERED RADIOLOGIC TECHNOLOGIST Pulse 98 04/23/2025 2:53 PM REGISTERED RADIOLOGIC TECHNOLOGIST Temperature 36.4 C (97.5 F) 02/18/2025 3:27 PM CDT Respiratory Rate 12 04/23/2025 2:53 PM REGISTERED RADIOLOGIC TECHNOLOGIST Oxygen Saturation 96% 04/23/2025 2:53 PM REGISTERED RADIOLOGIC TECHNOLOGIST Inhaled Oxygen Concentration - - Weight 18.4 kg (40 lb 9.6 oz) 04/23/2025 2:53 PM REGISTERED RADIOLOGIC TECHNOLOGIST Height 121.9 cm (3' 11.99) 04/23/2025 2:[address] Body Mass Index 12.39 04/23/2025 2:53 PM REGISTERED RADIOLOGIC TECHNOLOGIST Plan of Treatment Health Maintenance Due Date Last Done Comments Hepatitis B Screening 1973 DTaP/Tdap/Td Vaccine (2 - Td or Tdap) 03/09/2023 03/09/2013, 09/30/2002 Breast Cancer Screening-Mammogram 08/11/2023 08/10/2022, 03/26/2021, 01/16/2019, Additional history exists Covid-19 Vaccine (2024-06 6 season) 2025 03/29/2024, 03/24/2023, 02/18/2022, Additional history exists Influenza Vaccine (#1) 2025 , 03/18/2023, 03/17/2022, Additional history exists Well Visit 65+ 03/23/2025 03/23/2024, 03/09, 03/16/2022, Additional history exists Osteoporosis Screening-Bone Density Scan 02/14/2026 02/15/2024, 12/29/2021, 08/10/2018, Additional history exists Depression Screening 02/18/2026 02/18/2025, 03/23/2024, 03/16/2022, Additional history exists Fall Risk Assessment 02/18/2026 02/18/2025, 11/28/2024, 03/23/2024, Additional history exists Colon Cancer Screening-DNA Stool 06/08/2027 06/08/19, 02/09/2017 Colon Cancer Screening-CT Colonography Discontinued 02/09/2017 Colon Cancer Screening-Colonoscopy Discontinued 02/09/2017 Colon Cancer Screening-Sigmoidoscopy Discontinued 02/09/2017 Zoster Vaccine Completed 06/03/2018, 02/07, 01/22/2016 Hepatitis C Screening Completed 02/18/2021 Pneumococcal vaccine 65+ Completed 021, 02/28/2020, 12/06/2007 Colon Cancer Screening-FIT Discontinued 06/08, 02/09/2017, 12/24/2016 Procedures Procedure Name Priority Date/Time Associated Diagnosis Comments POCT URINALYSIS DIPSTICK Routine 04/23/2025 3:47 PM REGISTERED RADIOLOGIC TECHNOLOGIST Malodorous urine URINALYSIS, MICROSCOPIC ONLY Routine 04/23/2025 3:41 PM REGISTERED RADIOLOGIC TECHNOLOGIST Acute cystitis with hematuria URINE CULTURE Routine 04/23/2025 3:41 PM REGISTERED RADIOLOGIC TECHNOLOGIST URINALYSIS AND REFLEX TO MICROSCOPIC AND CULTURE Routine 04/23/2025 3:41 PM REGISTERED RADIOLOGIC TECHNOLOGIST Acute cystitis with hematuria COMPREHENSIVE METABOLIC PANEL Routine 03/20/2025 2:50 PM REGISTERED RADIOLOGIC TECHNOLOGIST Mixed hyperlipidemia LIPID PANEL Routine 03/20/2025 2:50 PM REGISTERED RADIOLOGIC TECHNOLOGIST Mixed hyperlipidemia CBC WITH AUTO DIFFERENTIAL Routine 03/20/2025 2:50 PM REGISTERED RADIOLOGIC TECHNOLOGIST Mixed hyperlipidemia URIC ACID Routine 03/20/2025 2:50 PM REGISTERED RADIOLOGIC TECHNOLOGIST Urinary frequency Acute idiopathic gout of right foot NOTE Routine 02/19/2025 3:03 PM CDT URINALYSIS AND REFLEX TO MICROSCOPIC Routine 02/19/2025 3:03 PM CDT Urinary frequency URINE CULTURE Routine 02/19/2025 3:03 PM CDT Urinary frequency EXTRA SPECIMEN Routine 02/18/2025 4:41 PM CDT URINE CULTURE Routine 02/18/2025 4:41 PM CDT Urinary frequency POCT URINALYSIS DIPSTICK Routine 02/18/2025 3:30 AM CDT Urinary frequency STOOL DNA COLOGUARD Routine 06/08/2024 2:00 PM REGISTERED RADIOLOGIC TECHNOLOGIST Screen for colon cancer DEXA AXIAL SKELETON BONE DENSITY 1 OR MORE SITES Schedule Routine, Read Routine (OP Routine) 02/15/2024 SCREENING MAMMOGRAM W KIKE Schedule Routine, Read Routine (OP Routine) 08/10/2022 HEPATITIS C ANTIBODY Routine 02/18/2021 1:45 PM CDT Encounter for hepatitis C screening test for low risk patient COLONOSCOPY Routine 02/09/2017 from Last 3 Months or Most Recently Relevant to Health Maintenance Results * (ABNORMAL) POCT urinalysis dipstick (04/23/2025 3:47 PM REGISTERED RADIOLOGIC TECHNOLOGIST) Color, Urine, POC Dark Yellow Clarity, ur, POC Cloudy(A) Clear Glucose, ur, POC Negative Negative Bilirubin, ur, POC Negative Negative Ketones, ur, POC Negative Negative Specific [place], POC 1.020 1.003 - 1.030 Blood, ur, POC Moderate(A) Negative pH, ur, POC 7.0 5.0 - 8.0 Protein, ur, POC Trace(A) Negative Urobilinogen, urine, POC 0.2 0.2 - 1.0 mg/dL Nitrite, ur, POC Positive(A) Negative Leukocytes, ur, POC Large(A) Negative Lot Number [id number] Urine 04/23/2025 3:47 PM REGISTERED RADIOLOGIC TECHNOLOGIST Magy Diaz MD POINT OF CARE TEST ORD ERABLES Final Result * (ABNORMAL) Urinalysis reflex to microscopic and culture Urine (04/23/2025 3:41 PM REGISTERED RADIOLOGIC TECHNOLOGIST) Color, ur Vonda Yellow Clarity, ur Turbid(A) Clear CERNER CH Specific gravity, ur 1.014 1.003 - 1.030 CERNER CH pH, urine 6.5 CERNER CH Comment: Interpretive Data U rine pH is affected by diet, medications, systemic acid-base disturbances, and renal tubular function. pH may affect urinary stone formation. For example, urine pH below 6.0 may help reduce the tendency for calcium phosphate stones and pH greater than 6.0 may reduce the tendency for uric acid stone formation. Source: [facility] [employer] Current Interpretive Data was last revised on 2017 Protein, ur ql Trace Negative CERNER CH Glucose, ur ql Negative Negative CERNER CH Ketones, ur Negative Negative CERNER CH Bilirubin, ur Negative Negative CERNER CH Blood, ur 1+(A) Negative CERNER CH Urobilinogen, ur <2.0 <2.0 mg/dL CERNER CH Nitrite, ur Positive(A) Negative CERNER CH Leukocyte esterase, ur 4+(A) Negative CERNER CH UA reflex comment Reflex to microscopic UA will be performed. [facility] Urine 04/23/2025 3:41 PM REGISTERED RADIOLOGIC TECHNOLOGIST 04/23/2025 7:32 PM REGISTERED RADIOLOGIC TECHNOLOGIST Adriana Bower MD LAB MICROBIOLOGY - GENERAL ORD ERABLES Final Result Performing Organization Address [facility] de Phone Number [facility] [address] [place] [address] * (ABNORMAL) Urinalysis, microscopic only (04/23/2025 3:41 PM REGISTERED RADIOLOGIC TECHNOLOGIST) WBC, ur >50(A) 0 - 5 /HPF RBC, ur >50(A) 0 - 2 /HPF CERNER Epithelial cells, squamous, ur 1-5 0 - 5 /HPF CERNER Bacteria, ur 4+(A) CERNER CH Mucous, ur Present(A) CERNER CH Culture Reflex Comment Reflex to urine culture will be performed. [facility] Urine 04/23/2025 3:41 PM REGISTERED RADIOLOGIC TECHNOLOGIST 04/23/2025 7:32 PM REGISTERED RADIOLOGIC TECHNOLOGIST Adriana Bower MD LAB URINE ORDERABLES Final Res ult Performing Organization Address [facility] Co de Phone Number MITESH [phone] Department of [employer] [place] [address] * (ABNORMAL) Urine culture Urine (04/23/2025 3:41 PM REGISTERED RADIOLOGIC TECHNOLOGIST) Report Final Report: Greater than or equal to 100,000 colonies/mL of Klebsiella pneumoniae (.) Comment:Testing performed by : [facility], [address] [place]., [address] Organism KLEBSIELLA PNEUMONIAE MITESH Urine 04/23/2025 3:41 PM REGISTERED RADIOLOGIC TECHNOLOGIST 04/23/2025 9:56 PM REGISTERED RADIOLOGIC TECHNOLOGIST Narrative [facility] - 04/26/2025 6:28 AM REGISTERED RADIOLOGIC TECHNOLOGIST Urine culture reflexed based upon urinalysis results. Testing performed by [facility] Microbiology Laboratory ([phone]) Organism Antibiotic Method Susceptibility Klebsiella pneumoniae Ampicillin INTERPRETATION Resistant Klebsiella pneumoniae Cefazolin INTERPRETATION Susceptible Klebsiella pneumoniae Nitrofurantoin INTERPRETATION Susceptible Klebsiella pneumoniae Gentamicin INTERPRETATION Susceptible Klebsiella pneumoniae Trimethoprim with Sulfamethoxazole INTERPRETATION Susceptible Klebsiella pneumoniae Meropenem INTERPRETATION Susceptible Klebsiella pneumoniae Cefepime INTERPRETATION Susceptible Klebsiella pneumoniae Ciprofloxacin INTERPRETATION Susceptible Klebsiella pneumoniae Ceftazidime INTERPRETATION Susceptible Klebsiella pneumoniae Ceftriaxone INTERPRETATION Susceptible Klebsiella pneumoniae Piperacillin/Tazobactam INTERPRE TATION Susceptible Klebsiella pneumoniae Cephalexin INTERPRETATION Susceptible Klebsiella pneumoniae Cefuroxime-axetil INTERPRETATION Susceptible Klebsiella pneumoniae Cefdinir INTERPRETATION Susceptible us Adriana Bower MD LAB MICROBIOLOGY - GENERAL ORD ERABLES Final Result MITESH [address] Department [place] [address] * CBC with auto differential (03/20/2025 2:50 PM REGISTERED RADIOLOGIC TECHNOLOGIST) WBC 8.6 3.8 - 10.8 Thousand/u L [facility] RBC, POC 4.86 3.80 - 5.10 Million/uL [facility] Hgb 14.1 11.7 - 15.5 g/dL [facility] Hct 43.2 35.0 - 45.0 % [facility] MCV 88.9 80.0 - 100.0 fL [facility] MCH 29.0 27.0 - 33.0 pg [facility] MCHC 32.6 32.0 - 36.0 g/dL [facility] Comment: For adults, a slight decrease in the calculated MCHC value (in the range of 30 to 32 g/dL) is most likely not clinically significant; however, it should be interpreted with caution in correlation with other red cell parameters and the patient's clinical condition. Rdw 13.6 11.0 - 15.0 % [facility] Platelets 324 140 - 400 Thousand/u L [facility] MPV 9.3 7.5 - 12.5 fL [facility] Neutrophils, abs 6,209 1,500 - 7,800 cells/uL [facility] Lymphocytes, abs 1,505 850 - 3,900 cells/uL [facility] Monocyte abs 654 200 - 950 cells/uL [facility] Eosinophils, abs 189 15 - 500 cells/uL [facility] Basophils, abs 43 0 - 200 cells/uL [facility] Neutrophils 72.2 % [facility] Lymphocyte pct 17.5 % [facility] Monocytes 7.6 % [facility] Eosinophils 2.2 % [facility] Basophils 0.5 % [facility] Blood 03/20/2025 2:50 PM REGISTERED RADIOLOGIC TECHNOLOGIST 03/20/2025 2:53 PM REGISTERED RADIOLOGIC TECHNOLOGIST Narrative [facility] - 03/21/2025 5:05 AM REGISTERED RADIOLOGIC TECHNOLOGIST FASTING:NO FASTING: NO Mahamed GRAJEDA LAB BLOOD ORDERABLES Fi nal Result [facility] [address] [place] [address] * Uric acid (03/20/2025 2:50 PM REGISTERED RADIOLOGIC TECHNOLOGIST) Pathologist [facility] Uric acid 4.1 2.5 - 7.0 mg/dL [facility] Comment: Therapeutic target for gout patients: <6.0 mg/dL Blood 03/20/2025 2:50 PM REGISTERED RADIOLOGIC TECHNOLOGIST 03/20/2025 2:53 PM REGISTERED RADIOLOGIC TECHNOLOGIST Narrative [facility] - 03/21/2025 5:05 AM REGISTERED RADIOLOGIC TECHNOLOGIST FASTING:NO FASTING: NO Mahamed GRAJEDA LAB BLOOD ORDERABLES Fi nal Result Performing Organization Address City/[facility]/ZIP Co de Phone Number [facility] [address] [facility] [place] [address] * Lipid panel (03/20/2025 2:50 PM REGISTERED RADIOLOGIC TECHNOLOGIST) Cholesterol 176 <200 mg/dL [facility] HDL 75 > OR = 50 mg/dL [facility] Triglycerides 81 <150 mg/dL [facility] LDL 84 mg/dL (calc) [facility] Comment: Reference range: <100 Desirable range <100 mg/dL for primary prevention; <70 mg/dL for patients with CHD or diabetic patients with > or = 2 CHD risk factors. LDL-C is now calculated using the Bianca calculation, which is a validated novel method providing better accuracy than the Friedewald equation in the estimation of LDL-C. Taz SS et al. SYLVESTER. 2013;310(19): 1523-2443 (http://education.emere.[employer]/faq/OBP366) Chol/HDL ratio 2.3 <5.0 (calc) [facility] Non-HDL, (LDL+VLDL) 101 <130 mg/dL (calc) [facility] Comment: For patients with diabetes plus 1 major ASCVD risk factor, treating to a non-HDL-C goal of <100 mg/dL (LDL-C of <70 mg/dL) is considered a therapeutic option. Blood 03/20/2025 2:50 PM REGISTERED RADIOLOGIC TECHNOLOGIST 03/20/2025 2:53 PM REGISTERED RADIOLOGIC TECHNOLOGIST Narrative [facility] - 03/21/2025 5:05 AM REGISTERED RADIOLOGIC TECHNOLOGIST FASTING:NO FASTING: NO us Mahamed GRAJEDA LAB BLOOD ORDERABLES Fi nal Result Performing Organization Address [facility]/ZIP Co de Phone Number SHEKHAR [facility] [address] [facility] [place] [address] * (ABNORMAL) Comprehensive metabolic panel (03/20/2025 2:50 PM REGISTERED RADIOLOGIC TECHNOLOGIST) Glucose 81 65 - 139 mg/dL [facility] Comment: Non-fasting reference interval BUN 14 7 - 25 mg/dL [facility] Creatinine 0.42(L) 0.60 - 1.00 mg/dL [facility] eGFR 105 > OR = 60 mL/min/1.7 3m2 [facility] BUN/creat ratio 33(H) 6 - 22 (calc) [facility] Sodium 138 135 - 146 mmol/L [facility] Potassium, pl 4.3 3.5 - 5.3 mmol/L [facility] Chloride 102 98 - 110 mmol/L [facility] CO2 31 20 - 32 mmol/L [facility] Calcium 8.9 8.6 - 10.4 mg/dL [facility] Protein, sr 6.3 6.1 - 8.1 g/dL [facility] Albumin 3.9 3.6 - 5.1 g/dL [facility] GLOBULIN 2.4 1.9 - 3.7 g/dL (calc) [facility] Alb/glob ratio 1.6 1.0 - 2.5 (calc) [facility] Bilirubin, total 0.6 0.2 - 1.2 mg/dL [facility] Alk phos 97 37 - 153 U/L [facility] AST 24 10 - 35 U/L [facility] ALT (SGPT) 17 6 - 29 U/L [facility] Blood 03/20/2025 2:50 PM REGISTERED RADIOLOGIC TECHNOLOGIST 03/20/2025 2:53 PM REGISTERED RADIOLOGIC TECHNOLOGIST Narrative [facility] - 03/21/2025 5:05 AM REGISTERED RADIOLOGIC TECHNOLOGIST FASTING:NO FASTING: NO us Mahamed GRAJEDA LAB BLOOD ORDERABLES Fi nal Result [facility] [address] [address] * NOTE (02/19/2025 3:03 PM CDT) Note [facility] Comment: This urine was analyzed for the presence of WBC, RBC, bacteria, casts, and other formed elements. Only those elements seen were reported. 02/19/2025 3:03 PM CDT 02/19/2025 3:04 PM CDT Mahamed GRAJEDA LAB BLOOD ORDERABLES Fi nal Result [facility] [address] [facility] [place] [address] * (ABNORMAL) Urinalysis reflex to microscopic (02/19/2025 3:03 PM CDT) Color, ur YELLOW YELLOW [facility] Appearance, ur TURBID(A) CLEAR [facility] Specific gravity 1.016 1.001 - 1.035 [facility] pH, ur < OR = 5.0(A) 5.0 - 8.0 [facility] Glucose, ur NEGATIVE NEGATIVE [facility] Bilirubin, ur NEGATIVE NEGATIVE [facility] Ketones, ur NEGATIVE NEGATIVE [facility] Blood, ur 2+(A) NEGATIVE [facility] Protein, ur, quant TRACE(A) NEGATIVE [facility] Nitrites, ur POSITIVE(A) NEGATIVE [facility] Leukocyte esterase, ur 3+(A) NEGATIVE [facility] WBC, ur > OR = 60(A) < OR = 5 /HPF [facility] RBC, ur 3-10(A) < OR = 2 /HPF [facility] Epithelial cells, squamous, ur 10-20(A) < OR = 5 /HPF [facility] Bacteria, ur, quant MANY(A) NONE SEEN /HPF [facility] Hyaline cast NONE SEEN NONE SEEN /LPF [facility] Yeast, ur FEW(A) NONE SEEN /HPF [facility] [place] Urine 02/19/2025 3:03 PM CDT 02/19/2025 3:04 PM CDT Mahamed GRAJEDA LAB URINE ORDERABLES Fi nal Result [email or web address] [address] [place] [address] * (ABNORMAL) Urine culture Urine, in and out catheter (02/19/2025 3:03 PM CDT) Urine culture (A) [facility] Comment: CULTURE, URINE, ROUTINE Micro Number: [id number] Test Status: Final Specimen Source: Urine, catheter Specimen Quality: Adequate Result: Greater than 100,000 CFU/mL of Klebsiella pneumoniae K.pneumoniae INT ARTURO AMOX/CLAVULANATE S <=2 AMP/SULBACTAM S 4 CEFAZOLIN NR 2 2 CEFEPIME S <=0.12 CEFTAZIDIME S <=0.5 CEFTRIAXONE S <=0.25 CIPROFLOXACIN S <=0.06 GENTAMICIN S <=1 IMIPENEM S <=0.25 LEVOFLOXACIN S <=0.12 MEROPENEM S <=0.25 NITROFURANTOIN S <=16 PIP/TAZOBACTAM S <=4 TRIMETHOPRIM/SULFA S <=20 S = Susceptible I = Intermediate R = Resistant NS = Not susceptible SDD = Susceptible Dose Dependent * = Not Tested NR = Not Reported NN = See Therapy Comments THERAPY COMMENTS Note 1: For infections other than uncomplicated UTI caused by E. coli, K. pneumoniae or P. mirabilis: Cefazolin is resistant if ARTURO > or = 8 mcg/mL. (Distinguishing susceptible versus intermediate for isolates with ARTURO < or = 4 mcg/mL requires additional testing.) Note 2: For uncomplicated UTI caused by E. coli, K. pneumoniae or P. mirabilis: Cefazolin is susceptible if ARTURO <32 mcg/mL and predicts susceptible to the oral agents cefaclor, cefdinir, cefpodoxime, cefprozil, cefuroxime, cephalexin and loracarbef. Urine, in and out catheter 02/19/2025 3:03 PM CDT 02/19/2025 3:04 PM CDT Mahamed GRAJEDA LAB MICROBIOLOGY - GENE RAL ORDERABLES Final Result Performing Organization Address City[facility] Co de Phone Number [email or web address] [address] [place] [address] * Extra Specimen (02/18/2025 4:41 PM CDT) Extra Tube Received [facility] Comment: An extra specimen was received with no test requested. The specimen will be maintained in storage in case additional testing is needed. Please call the client service department for further assistance. Specimen Type Received Urine [facility] 02/18/2025 4:41 PM CDT 02/19/2025 4:46 AM CDT Mahamed GRAJEDA LAB BLOOD ORDERABLES Fi nal Result Performing Organization Address [facility] Co de Phone Number [email or web address] [address] [place] [address] * Urine culture Urine, in and out catheter (02/18/2025 4:41 PM CDT) Pathologist [facility] Urine culture [facility] Comment: CULTURE, URINE, ROUTINE Micro Number: [id number] Test Status: Final Specimen Source: Not given Specimen Quality: Inadequate Result: Test not performed. Specimen received at room temperature. Urine, in and out catheter 02/18/2025 4:41 PM CDT 02/19/2025 4:46 AM CDT Mahamed GRAJEDA LAB MICROBIOLOGY - GENE RAL ORDERABLES Final Result Performing Organization Address [facility] Co de Phone Number [email or web address] [address] [employer] [address] * (ABNORMAL) POCT urinalysis dipstick (02/18/2025 3:30 AM CDT) Color, Urine, POC Yellow Clarity, ur, POC Clear Clear Glucose, ur, POC Negative Negative Bilirubin, ur, POC Negative Negative Ketones, ur, POC Negative Negative Specific [place], POC 1.025 1.003 - 1.030 Blood, ur, POC Small(A) Negative pH, ur, POC 6.5 5.0 - 8.0 Protein, ur, POC Negative Negative Urobilinogen, urine, POC 0.2 0.2 - 1.0 mg/dL Nitrite, ur, POC Negative Negative Leukocytes, ur, POC Moderate(A) Negative Lot Number [id number] Urine 02/18/2025 3:30 AM CDT Mahamed GRAJEDA POINT OF CARE TEST MORE ESTRADA Final Result * Stool DNA - Cologuard (06/08/2024 2:00 PM REGISTERED RADIOLOGIC TECHNOLOGIST) Stool DNA - Cologuard Negative Negative [facility] (CLIA #:[id number]) Comment: NEGATIVE TEST RESULT. A negative Cologuard [...] Encinas et al, N Engl J Med 2014;370(14):2546-5430) The normal value (reference range) for this assay is negative. COLOGUARD RE-SCREENING RECOMMENDATION: Periodic colorectal cancer screening is an important part of preventive healthcare for asymptomatic individuals at average risk for colorectal cancer. Following a negative Cologuard result, the [place] [employer] Society and U.S. Multi-Society Task Force screening guidelines recommend a Cologuard re-screening interval of 3 years. References: [place] [employer] Guideline for Colorectal Cancer Screening: https://www.cancer.org/cancer/bxsni-oddoep-byzytp/jmdlybjnj-fxhmdivag-ezodcsm/ac s-rec ommendations.html.; Wilfrido DK, Gracie CR, Frances MANLEY, Colorectal Cancer Screening: Recommendations for Physicians and Patients from the U.S. Multi-Society Task Force on Colorectal Cancer Screening , Am J Gastroenterology 2017; 112:3602-3128. TEST DESCRIPTION: Composite algorithmic analysis of stool [...] Couch. et al, N Engl J Med 2014;370(14):3550-3493.) Cologuard may produce a false negative or false positive result (no colorectal cancer or precancerous polyp present at colonoscopy follow up). A negative Cologuard test result does not guarantee the absence of CRC or advanced adenoma (pre-cancer). The current Cologuard screening interval is every 3 years. ([place] [employer] Society and U.S. Multi-Society Task Force). Cologuard performance data in a 10,000 patient pivotal study using colonoscopy as the reference method can be accessed at the following location: www.Sonics.com/results. Additional description of the Cologuard test process, warnings and precautions can be found at www.cologuard.com. Stool 06/08/2024 2:00 PM REGISTERED RADIOLOGIC TECHNOLOGIST 06/09/2024 9:17 AM REGISTERED RADIOLOGIC TECHNOLOGIST us Donal Tovar MD LAB BODY FLUIDS AND STO OLS ORDERABLES Final Result [facility] (CLIA #:[id number]) [place] [address] [place] [address] * Dexa Axial Skeleton Bone Density 1 [...] a test for HCV RNA (test code 53903) is suggested. For additional information please refer to http://education.ProFundCom/faq/BNR08q0 (This link is being provided for informational/ educational purposes only.) Blood specimen (specimen) 02/18/2021 1:45 PM CDT 02/19/2021 11:29 AM CDT Narrative [facility] - 02/20/2021 2:24 AM CDT FASTING: UNKNOWN Janet Malloy NP LAB MICROBIOLOGY - GENERAL O RDERABLES Final Result [facility] [address] [address] * Colonoscopy (02/09/2017) Anatomical Region Laterality Modality Other Impressions 02/09/2017 See result in care everywhere from [facility] us Historical Provider ENDOSCOPY PROCEDURES Steffi l Result from Last 3 Months or Most Recently Relevant to Health Maintenance Insurance [id number] MEDICARE ADVANTAGE [facility] Address[facility] [address] [place] [address] [facility] MEDICARE [facility] MEDICARE [employer] OPEN ACCESS [employer] MEDICARE Advance Directives For more information, please contact: [phone] Documents on File Type Date Recorded Patient Leather Carver Expl anation ADVANCE DIRECTIVE 04/19/2019 10:51 AM DNR ADVANCE DIRECTIVE 03/26/2019 DNR ADVANCE DIRECTIVE 03/02/2019 Power of Dredge Pump Operator-Financial/Medic al * Full Code (Latest Code Status on File) Date Activated Date Inactivated Comments 11/28/2024 10:59 AM 11/28/2024 6:03 PM * Full Code Date Activated Date Inactivated Comments 04/09/2022 12:25 PM 04/09/2022 6:17 PM * Full Code Date Activated Date Inactivated Comments 11/12/2018 12:14 AM 2018 7:44 PM * Full Code Date Activated Date Inactivated Comments 07/13/2018 12:44 PM 07/14/2018 7:09 PM Care Teams Telemetry Monitor Relationship Specialty Start Date End Date Donal Tovar MD PCP - General 09/17/14
--- OUTSIDE RECORDS SUMMARY | 2025-05-03 14:41 | XMS_ITS | Clinical Summary ---
Author Organization [facility] Address [address] [place] [address] Care Team Providers Care Chopper Gun Operator Name Role Phone Donal Tovar MD Primary Care Provider [phone] Ubaldo Johnson MD Unavailable Allergies Active Allergy Reactions Criticality Noted Date [...] symptoms Seasonal Other (see comment) 08/28/2012 Asthma Shellfish Protein-Containing Drug Products GI Upset,Swelling Medium 02/28/2013 Sulfamethoxazole Unknown 09/17/2024 Sulfamethoxazole-Trimethop rim Other (see comment) Low 07/07/2018 Deep wheezing and cough spasms Medications rosuvastatin 5 MG tablet Take 5 mg by mouth daily. 02/23/20 19 Active polyethylene glycol packet Take 17 g by mouth daily. Dissolve powder in 240 mL water Active sodium chloride (SODIUM CHLORIDE) 0.65 % [...] (six) hours as needed for Pain. Active ipratropium (ATROVENT) 0.03 % nasal spray [...] capsule Take 25 mg by mouth. Active albuterol sulfate HFA 108 (90 Base) MCG/ACT inhaler Inhale 2 puffs into the lungs every 6 (six) hours as needed. Active cetirizine (ZYRTEC) 10 MG tablet Take 1 tablet (10 mg total) by mouth daily as needed. FOR ALLERGIES Active Cranberry 250 MG Cap Take 250 mg by mouth daily. Active Estradiol [address] 5 mcg vaginally daily. 04/23/20 24 Active famotidine (PEPCID) 20 MG tablet Take 0.5 tablets (10 mg total) by mouth 2 (two) times daily. 08/04/19 25 026 Active fluticasone propionate (FLONASE) 50 MCG/ACT nasal spray 1 spray by Nasal route 2 (two) times daily. 08/04/19 25 Active Active Problems Problem Noted Date Diagnosed Date Coronary artery calcification 05/13/2021 Assessment & Plan (03/29/2022 3:08 PM CHILD CUSTODY EVALUATOR): She is not having angina. There was concern for if the need for PCI arise that would not be a stent available given her body habitus, I reassured her that I think she feels a find a way to treat her. Continue aspirin and rosuvastatin. Mixed hyperlipidemia 02/22/2019 Assessment & Plan (03/29/2022 3:09 PM CHILD CUSTODY EVALUATOR): I reviewed the lipid panel and Care [...] Sign Reading Time Taken Comments Blood Pressure 128/60 09/17/2024 2:30 PM CDT Pulse 109 09/17/2024 2:30 PM CDT Temperature 36.6 C (97.9 F) 02/05/2021 3:25 PM CDT Respiratory Rate 24 02/05/2021 4:00 PM CDT Oxygen Saturation 97% 09/17/2024 2:30 PM CDT Inhaled Oxygen Concentration - - Weight 17.7 kg (39 lb) 09/17/2024 2:30 PM CDT Height 121.9 cm (4') 09/17/2024 2:30 PM CDT Body Mass Index 11.9 09/17/2024 2:30 PM CDT Plan of Treatment Health Maintenance Due Date Last Done Comments ASCVD Statin 1955 Colorectal Cancer Screening Colonoscopy (10 Years) 1955 Hepatitis C 1972 Mammogram Screening 1994 RSV Immunization or 60+ Years (1 - Risk 60-74 years 1-dose series) 2014 Annual Medicare Wellness Visit 11/15/2019 DTaP, Tdap and Td Vaccines (2 - Td or Tdap) 03/09/2023 03/09/2013, 09/30/2002 COVID-19 Vaccine (3 - season) 2025 12/22/2020, 11/24/2020 Influenza Adult (#1) 2025 03/23/2024, 03/10/2021, 02/28/2020, Additional history exists AAA SCREENING Completed 12/21/2016, 09/06, 09/21/2016, Additional history exists Zoster Vaccines Completed 06/03/2018, 02/07, 01/22/2016 Pneumococcal Vaccine: 50+ Years Completed 03/10/2021, 02/28/2020, 12/06/2007 Dexa Scan (General) Completed 02/15/2024, 12/29/2021, 08/10/2018 Hepatitis A Vaccines Aged Out No long er eligible based on patient's age to complete this topic Meningococcal B Vaccine Aged Out No l onger eligible based on patient's age to complete this topic Meningococcal Vaccine Aged Out No colten bhupendra eligible based on patient's age to complete this topic RSV Immunizations Under 20 Months Aged Out No longer eligible based on patient's age to complete this topic [place] [address] [place] [address] MEDICARE Care Teams Chopper Gun Operator Relationship Specialty Start Date End Date Donal Tovar MD PCP - General INTERNAL MEDICINE 02/06/19 Ubaldo Johnson MD [facility] [address] [place], [place] [id number] [employer] Blender Snuff INTERVENTIONAL CARDIOLOGY 02/15/19
--- OUTSIDE RECORDS SUMMARY | 2025-05-03 14:41 | XMS_ITS | Encounter Summary ---
Author Organization [facility] Address [address] [place] [address] Care Team Providers Care Urologist Md Name Role Phone Donal Tovar MD Primary Care Provider [phone] Ubaldo Johnson MD Unavailable [phone] Encounter Details Date Type Department Care Team (Late st Contact Info) Description 08/13/2019 Abstract [facility], [address] [address] Jayme Rizo MA Social History Tobacco Use [...] on filedocumented in this encounter Care Teams Urologist Md Relationship Specialty Start Date End Date Donal Tovar MD PCP - General INTERNAL MEDICINE 02/06/19 Ubaldo Johnson MD [address] [address] Pillager Log Chipper INTERVENTIONAL CARDIOLOGY 02/15/19 documented as of this encounter
--- OUTSIDE RECORDS SUMMARY | 2025-05-03 14:41 | XMS_ITS | Encounter Summary ---
Author Organization [facility] Address [address] [place] [address] Phone Care Team Providers Care Loading And Unloading Supervisor Name Role Phone Donal Tovar MD Primary Care Provider Reason for Referral * PT/OT/ST (Routine) - Open Specialty Diagnoses / Procedures Referred By Contparminder t Referred To Contact Speech Therapy Diagnoses Dysphagia, unspecified type Donal Tovar MD [address] [place] [address] Phone: tel: fax: [facility] [address] [address] Phone: tel: fax: Referral ID Status Reason Start Date Expiration Date Visits Re quested Visits Authorized [id number] Open 07/09/2024 50 50 Scheduling Instructions MACHINE OPERATOR Encounter Details Date Type Department Care Team (Late st Contact Info) Description 07/09/2024 Transcribe Orders [facility] [address] [place] [address] Donal Tovar MD [address] [place] [address] Dysphagia, unspecified type (Primary Dx) Social History [...] Primary documented in this encounter Care Teams Loading And Unloading Supervisor Relationship Specialty Start Date End Date Donal Tovar MD [address] [place] [address] [address] [place] [address] PCP - General Internal Medicine 01/10/19 documented as of this encounter
--- OUTSIDE RECORDS SUMMARY | 2025-05-03 14:41 | XMS_ITS | Encounter Summary ---
Author Organization [facility] Address [facility] [place] [address] Care Team Providers Care Distributed Energy Systems Consultant Name Role Phone Donal Tovar MD Primary Care Provider [phone] Ubaldo Johnson MD Unavailable [phone] Encounter Details Date Type Department Care Team (Late st Contact Info) Description 01/13/2022 Abstract [facility] [id number] Jayme Rizo MA Social History Tobacco Use [...] Associated Diagnosis Comments COMPREHENSIVE METABOLIC PANEL Routine 08/06/2024 LIPID PANEL Routine 08/06/2024 LIPID PANEL Routine 07/23/2022 LIPID PANEL Routine 06/04/2022 LIPID PANEL Routine 01/29/2022 LIPID PANEL Routine 11/20/2021 documented in this encounter Results * COMPREHENSIVE METABOLIC PANEL (08/06/2024) GLUCOSE 77 mg/dL us Default History Genericprovider LABORATORY Final Result * LIPID PANEL (08/06/2024) CHOLESTEROL 168 TRIGLYCERIDES 123 HDL 86 LDL (CALCULATED) 58 us Default History Genericprovider LABORATORY Final Result * LIPID PANEL (07/23/2022) CHOLESTEROL 134 HDL [...] on filedocumented in this encounter Care Teams Distributed Energy Systems Consultant Relationship Specialty Start Date End Date Donal Tovar MD PCP - General INTERNAL MEDICINE 02/06/19 Ubaldo Johnson MD [facility]. [facility] [address] [place] [address] [place] Phytochemistry Professor INTERVENTIONAL CARDIOLOGY 02/15/19 documented as of this encounter
--- OUTSIDE RECORDS SUMMARY | 2025-05-03 14:41 | XMS_ITS | Clinical Summary ---
Author Organization [facility] Address [address] [place] [address] Phone Care Team Providers Care Pelletizer Name Role Phone Donal Tovar MD Primary [...] Active Active Problems No known active problems Social History Tobacco Use Types Packs/Day Years [...] Comments Blood Pressure 94/58 05/03/2023 6:03 PM NET LEAD ARCHITECT Pulse 106 02/07/2019 3:48 PM CDT Temperature 36.8 C (98.2 F) 05/03/2023 6:03 PM NET LEAD ARCHITECT Respiratory Rate 16 05/03/2023 6:03 PM NET LEAD ARCHITECT Oxygen Saturation 93% 05/03/2023 6:03 PM NET LEAD ARCHITECT Inhaled Oxygen Concentration - - Weight 23.6 kg (52 lb) 01/29/2019 2:18 PM CDT Height 121.9 cm (4') 01/12/2019 3:33 PM CDT Body Mass Index 15.87 01/12/2019 3:33 PM CDT Plan of Treatment Health Maintenance Due Date Last Done Comments Hepatitis C Virus (HCV) Screening 1955 Cologuard 11/15/1999 Immunochemical Fecal Occult Blood 11/15/1999 Mammogram 01/17/2020 01/16/2019 DEXA Bone Density 08/10/2020 08/10/2018 Medicare Subsequent AWV G0439 02/27/2021 Influenza Immunization (#1) 01/07/202503/09, 03/18/2023, 03/17/2022, Additional history exists SARS-COV-2 Immunization ( season) 2025 03/29/2024, 03/24/2023, 02/18/2022, Additional history exists Colonoscopy 02/09/2027 02/09/2017 Colorectal Cancer Screening 02/09/2027 Respiratory Syncytial Virus (RSV) Immunization (Adult) (1 - 1-dose 75+ series) 2029 DTaP/Tdap/Td Immunization Discontinued 03/09/2013, TdaP Immunization Completed 03/09/2013 Zoster Immunization Completed 06/03/2018, 03/06/2018, 01/22/2016 Medicare Initial AWV G0438 Discontinued 02/28/2020 Pneumococcal Immunization (50+ years) Completed 03/10/2021, 02/28/2020, 12/06/2007 Hepatitis B Immunization Aged Out No longer eligible based on patient's age to complete this topic Human Papillomavirus (HPV) Immunization (No Doses Required) Completed Meningococcal Immunization (ACWY) Aged Out No longer eligible based on patient's age to complete this topic Rotavirus Immunization Aged Out No lo nger eligible based on patient's age to complete this topic Insurance MEDICARE C [employer]ET[employer] Advance Directives * Full Code (Latest Code Status on File) Date Activated Date Inactivated Comments 01/17/2019 7:08 AM Care Teams Pelletizer Relationship Specialty Start Date End Date Donal Tovar MD [address] [place] [address] PCP - General Internal Medicine 01/10/19
--- OUTSIDE RECORDS SUMMARY | 2025-05-03 14:41 | XMS_ITS ---
Author Organization [facility] Address [address] [place] [address] Care Team Providers Care Curator Of Education Name Role Phone Donal Tovar MD Primary Care Provider Active Problems Problem Noted Date Diagnosed Date [...] (03/23/2022): Added automatically from request for surgery [id number] Coronary artery calcification 05/13/2021 Anxiety 02/28/2020 Gastroesophageal [...] she Cnt. With her current Lovaza and [place] 3 along with aspirin, heart healthy diet [...] Zoledronic acid 2.5 mg doses given at [place], [place] - March 2009, July 2011, September [...] sided sciatica 03/13/2009 Lumbago 03/13/2009 Muscle strain Current Treatment and Therapy Plans No current plan information found. Past Treatment and Therapy Plans No past plan information found. Lifetime Dose Tracking * Chemical Lifetime Dose Automatic Entry Manual Entr y DLP 277 mGycm 277 mGycm 0 mGycm Resolved Problems Problem Noted Date Diagnosed Date [...] a living will and durable power of trademark attorney in place. In regard to social [...] reordered today and requesting prior records from [facility] Last mammogram was negative in 2018- mammogram [...]
--- OUTSIDE RECORDS SUMMARY | 2025-05-03 14:41 | XMS_ITS | Encounter Summary ---
Author Organization [facility] Address [address] [place] [address] Care Team Providers Care Tool Honing Machine Set Up Operator Name Role Phone Donal Tovar MD Primary Care Provider Jacinta Bull MD Unavailable Romina Yanez MA Unavailable [phone] Maura Miranda DPT Unavailable [phone] Encounter Details Date Type Department Care Team (Late st Contact Info) Description 07/14/2018 Documentation [facility] Case Management [address] [place] [id number] Gabriela Campbell RN Social History Tobacco Use Types Packs/Day Years Used Date Smoking Tobacco: Never Smokeless Tobacco: Never Alcohol Use Standard Drinks/Week Comments No 0 (1 standard drink = 0.6 oz pur e alcohol) Comments No Sex and Gender Information Value Date Recorded Sex Assigned at Not on file Legal Sex Female 11:55 PM TUBE CLEANER Gender Identity Not on file Sexual Orientation Not on file documented as of this encounter Plan of Treatment Not on file documented as of this encounter Visit Diagnoses Not on filedocumented in this encounter Care Teams Tool Honing Machine Set Up Operator Relationship Specialty Start Date End Date Donal Tovar MD PCP - General 09/17/14 Jacinta Bull MD [phone] [place] [address] Referring Physician Obstetrics and Gynecology 06/30/18 03/01/19 Romina Yanez MA [address] [place] [address] [address] [place] [address] ACO Care Carry Out Clerk 08/23/24 08/23/24 Maura Miranda DPT [address] [facility] [address] [facility] [address] [place] [address] Physical Therapist Physical Therapy 09/26/24 01/02/25 documented as of this encounter
--- OUTSIDE RECORDS SUMMARY | 2025-05-03 14:41 | XMS_ITS | Clinical Summary ---
Author Organization [facility] [employer] Address [address] [place] [address] Care Team Providers Care Icu Rn Name Role Phone Donal Tovar MD Primary Care Provider Source Comments [facility],non-owned Affiliates and Associated Physician Practices is amultiple site organization consisting of ambulatory clinics and hospital sitesin [place], [place], [place] and [place]. This disclosure is being madepursuant to the Care Everywhere program and may not contain all information available regarding this patient. Last updated 18.[facility] [employer] Allergies Active Allergy Reactions Criticality Noted Date [...] TABS Take 1 Tab by mouth Active [place]-3 Fatty Acids (FISH OIL) 1000 MG capsule [...] on file Legal Sex Female 1:35 PM PHARMACY INNOVATION ASSISTANT Gender Identity Not on file Sexual Orientation [...] 2004 ZOSTER VACCINE (1 of 2) 2004 DEPRESSION SCREENING 05/09/2024 MEDICARE AWV CALENDAR YEAR 2024 COVID-19 VACCINE (1 - season) 2025 INFLUENZA VACCINE (#1) 2025 , 02/28/2020, 02/22/2019, Additional history exists COLON MONITORING [...] (Doctor), Aidan Bey MD (Fellow), Cathryn Lowe, Nurse Staff Industrial Referring MD: Donal Tovar MD (Referring MD) [...] neoplasm of digestive organs CPT copyright 2015 [employer]. All rights reserved. The codes documented in this report are preliminary and upon network contractor review may be revised to meet current compliance requirements. Attending Participation: I personally performed the entire procedure. Naomy Powell MD 02/09/2017 1:17:26 PM Number of Addenda: 0 Note Initiated On: 02/09/2017 12:16 PM [facility] ENDOSCOPY 02/09/2017 12:1 6 PM CDT Naomy Powell MD GI PROCEDURE ORDERABLES Ed ited Result - Final HC ENDOSCOPY from Last 3 Months or Most Recently Relevant to Health Maintenance Insurance [facility] Address: [facility] [id number] [place] [address] [facility] MANAGED MEDICARE ADV [id number] MANAGED MEDICARE ADV Care Teams Icu Rn Relationship Specialty Start Date End Date Donal Tovar MD [address] [phone] PCP - General 10/12/11
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
[2025-05-03 14:47] VITALS: BP 146/69; PULSE 95; RESP 16; TEMP 36.2; O2SAT 100
== END 2025-05-03 16:10 | disposition short-term general hospital (02) ==
PROVIDERS: Emergency Provider Nurse Practitioner Family; PCP Internal Medicine
DX: S82.192A Other fracture of upper end of left tibia, initial encounter for closed fracture (principal); X58.XXXA Exposure to other specified factors, initial encounter
CPT/HCPCS: 29505; 73564; 99215; G0463